=== PATIENT | male | born 1930 | race Caucasian/White ===

== ENCOUNTER → 2016-06-21 | Outpatient (CLI) | payer OTHER ==
[~2016-06-21] MED LIST: AEROBID7 GM INH; AEROSPAN8.9 GM IH; ANCEF 1GM1 GM/50 M1 IVPB; BETAMETHASONE D50 G1 TP; BROVANA15 MCG/2 M INH; CALCIUM 600 +1 EAC1 PO; CEFUROXIME250 MG PO; COMBIVENT INH; COMBIVENT RESPIM4 GM INH; COUMADIN 1MG TAB1 M1 PO; COUMADIN 2.5MG2.5 M1 PO; COUMADIN 5 MG TA5 M1 PO; COZAAR 25 MG TA25 M2 PO; COZAAR100 MG PO; DUONEB 2.5-0.5 M3 ML INH; ENOXAPARIN120 MG/0.1 SUBQ; FENOFIBRATE134 MG PO; FENOFIBRATE160 MG PO; FLONASE 0.05%50 MCG NASAL; FLUNISOLIDE25 M1 NASAL; FML 0.1% 10ML10 M1 OP; FUROSEMIDE 20 M20 M1 PO; HYDROCODON-ACE1 EAC7 PO; HYDROCORTISONE30 G9 RECTAL; K-DUR10 MEQ PO; KLOR-CON 1010 MEQ PO; KLOR-CON 88 ME1 PO; LACTULOSE10 GM/15 M PO; LASIX 20 MG TAB20 MG PO; LASIX 40 MG TAB40 M2 PO; LEVAQUIN 500 M500 M2 PO; LEVEMIR SUBQ; LEVOTHROID150 MCG PO; LEVOTHYROXIN0.175 MG PO; LEVOTHYROXINE PO; LOPRESSOR25 PO; LOPRESSOR50 PO; LOSARTAN POTAS100 MG PO; LOSARTAN POTASS25 MG PO; MAGNESIUM400 MG PO; METOLAZONE 5 MG5 M1 PO; METOLAZONE 5 MG5 MG PO; METOPROLOL SUCC25 M1 PO; MIRALAX17 GM PO; NEURONTIN 300300 M1 PO; NEURONTIN300 MG PO; NOVOLIN N100 UNIT/1 SUBQ; NOVOLIN N100 UNIT/3 SQ; NOVOLOG100 UNIT/1 SUBQ; PREDNISONE 10 M10 MG PO; PREDNISONE 20 M20 MG PO; PREDNISONE 5 MG5 M1 PO; SANTYL OINTMENT30 G1 TP; SYNTHROID150 MCG PO; TAMSULOSIN HCL0.4 M1 PO; TAMSULOSIN HCL0.4 MG PO; TOPROL XL50 MG PO; TRAMADOL 50 MG50 MG PO; VIBRAMYCIN 100100 MG PO; VITAMIN D1000 UNI1 PO; VITAMIN D31000 UNI2 PO
== END ==
LOC: HYPER 06:55
DX: E11.621 Type 2 diabetes mellitus with foot ulcer (principal); L97.521 Non-pressure chronic ulcer of other part of left foot limited to breakdown of skin; I87.303 Chronic venous hypertension (idiopathic) without complications of bilateral lower extremity; E11.40 Type 2 diabetes mellitus with diabetic neuropathy, unspecified; I89.0 Lymphedema, not elsewhere classified; Z79.4 Long term (current) use of insulin; Z87.891 Personal history of nicotine dependence

== ENCOUNTER → 2016-07-12 | Outpatient (CLI) | payer OTHER | LOC: HYPER 06:59 | DX: E11.621 Type 2 diabetes mellitus with foot ulcer (principal); L97.521 Non-pressure chronic ulcer of other part of left foot limited to breakdown of skin; E11.40 Type 2 diabetes mellitus with diabetic neuropathy, unspecified; I89.0 Lymphedema, not elsewhere classified; I87.303 Chronic venous hypertension (idiopathic) without complications of bilateral lower extremity; Z79.4 Long term (current) use of insulin; G47.30 Sleep apnea, unspecified; E11.36 Type 2 diabetes mellitus with diabetic cataract; J44.9 Chronic obstructive pulmonary disease, unspecified; I11.0 Hypertensive heart disease with heart failure; I50.20 Unspecified systolic (congestive) heart failure; M19.90 Unspecified osteoarthritis, unspecified site; E03.9 Hypothyroidism, unspecified; E78.00 Pure hypercholesterolemia, unspecified; I25.10 Atherosclerotic heart disease of native coronary artery without angina pectoris; E11.69 Type 2 diabetes mellitus with other specified complication; M86.8X9 Other osteomyelitis, unspecified sites; Z86.14 Personal history of Methicillin resistant Staphylococcus aureus infection; Z87.891 Personal history of nicotine dependence; Z72.89 Other problems related to lifestyle ==

== ENCOUNTER 2016-09-11 09:50 | Inpatient (IN) | payer OTHER ==
[~2016-09-11] VITALS: Ht 180.3 cm; Wt 115.2 kg
--- NOTE | ~2016-09-11 | HC ---
[facility] [place] [address] CONSULTATION Name: MALOU SPENCER Sophy Room #: 309-P ADM IN M.R.#: [id number] Admission: 09/11/16 Attend Phys: Liz Ramsay MD Discharge: Date of : 29 Report #: [id number] THIS REPORT FOR: //name// CC: Mark Ramsay DATE OF SERVICE: 09/13/2016 REASON FOR CONSULTATION: COPD. IMPRESSION: 1. Chronic obstructive pulmonary disease exacerbation, improved. 2. Congestive heart failure exacerbation. 3. Syncope, question etiology. 4. Chronic venous stasis, worsened. 5. History of obstructive sleep apnea, on CPAP. PLAN: Continue current. We will check a V/Q scan in comparison to prior because of his acute syncopal episodes and unknown etiology. Continue to diurese, wean steroids as able. HISTORY OF PRESENT ILLNESS: Very pleasant 86-year-old male with history of hypertension, COPD and CLARA, comes in now with progressive shortness breath and peripheral edema. No hemoptysis or hematemesis. No new discolored sputum. Had an episode where he felt short of breath and blacked out and fell. ALLERGIES: Per chart, BUDESONIDE, GEMFIBROZIL, DILTIAZEM, FLUTICASONE, FORMOTEROL, SOLU-MEDROL, SIMVASTATIN and TIOTROPIUM. PAST MEDICAL HISTORY: COPD, history of permanent atrial fibrillation, chronic hypoxemic respiratory failure, CLARA, coronary artery disease, gout, diabetes, hypothyroidism, pulmonary hypertension, hypertension and hyperlipidemia. SOCIAL HISTORY: Positive tobacco, quit in 1965. FAMILY HISTORY: Obstructive lung disease. REVIEW OF SYSTEMS: Positive shortness breath, cough, wheeze and syncope. No dysuria. No hemoptysis or hematemesis. No hot or cold intolerance. PHYSICAL EXAMINATION: EYES: Negative icterus. NECK: Negative JVD. LUNGS: Grossly clear. HEART: Irregularly regular. ABDOMEN: Bowel sounds present. [facility] [address] [place] [address] CONSULTATION Name: MALOU SPENCER Room #: 309-P ADM IN [facility]#: [id number] Admission: 09/11/16 Attend Phys: Liz Ramsay MD Discharge: Date of : 29 Report #: [id number] EXTREMITIES: Showed chronic change. Positive edema. NEUROLOGIC: Alert and oriented, recognized me. DIAGNOSTIC DATA: Echo showed a PA systolic of 66, which is higher than last measured. Right atrium and left atrium severely dilated, EF 50% to 55%. Carotid showed minimal to mild. TSH 0.566. White count 20, hemoglobin 12.9 and platelets 335,000. BUN 35, creatinine 1.5. We will follow closely with you. <ELECTRONICALLY SIGNED> By: Tony Gomez MD 09/14/16 1841 2046 0249 Tony Gomez MD /nt
--- NOTE | ~2016-09-11 | EKG ---
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
--- NOTE | ~2016-09-11 | 2DMMODE ---
[facility] [place] [address] 2 D/M-MODE ECHOCARDIOGRAM Name: SPENCERMLAOU Room #: 309-P ADM IN ..#: [id number] Admission: 09/11/16 Attend Phys: Liz Ramsay MD Discharge: Date of : 29 Date of Service: 09/13/16 1258 Report #: [id number] THIS REPORT FOR: //name// APPROVED REPORT Study performed: 09/13/2016 10:45:02 EXAM: Comprehensive 2D, Doppler, and color-flow Echocardiogram Patient Location: Bedside/Room 309 Blood Pressure: 177/94 mmHg HR: 64 bpm Rhythm: irregular Other Information Study Quality: Adequate/Technically limited due to body habitus and lung disease. Indications COPD Diabetes Dyspnea Elevated BP Congestive Heart Failure Hx: CAD, HLP, Afib, CHF, obesity 2D Dimensions RVDd: 40.95 mm LVEF(%): 49.03 (>50%) IVSd: 11.36 (7-11mm) LVOT Diam: 20.31 (18-24mm) LVDd: 50.23 mm PWd: 10.19 (7-11mm) Ascending Aorta: 36.01 mm LVDs: 37.73 (25-40mm) Aortic Root: 42.69 mm Mendez's LVEF: 49.03 % Volumes Left Atrial Volume (Systole) Single Plane 4CH: 99.35 mL Single Plane 2CH: 106.63 mL LA ESV Index: 47.00 mL/m2 Aortic Valve AoV Peak Kimo.: 2.51 m/s AO Peak Gr.: 25.25 mmHg AO Mean Gr.: 15.84 mmHg LV Max P.21 mmHg [facility] [place] [place] [address] 2 D/M-MODE ECHOCARDIOGRAM Name: MALOU SPENCER Room #: 309-P [facility] IN [facility]#: [id number] Admission: 09/11/16 Attend Phys: Liz Ramsay MD Discharge: Date of : 29 Date of Service: 09/13/16 1258 Report #: [id number] AO V2 VTI: 583.85 mm LV Max: 0.89 m/s Mitral Valve MV PHT: 45.36 ms MV E Max Kimo.: 1.26 m/s E/A Ratio: 2.9 MV A Kimo.: 0.44 m/s MV Decel. Time: 156.41 ms Pulmonary Valve PV Peak Kimo.: 0.88 m/s PV Peak Gr.: 3.13 mmHg Tricuspid Valve TR Peak Kimo.: 3.57 m/s RAP Estimate: 15.00 mmHg TR Peak Gr.: 51.19 mmHg RVSP: 66.00 mmHg Left Ventricle The left ventricle is normal size. There is normal left ventricular wall thickness. Left ventricular systolic function is normal. LVEF is 50-55%. Diastology is difficult to assess due to arrhythmia. Right Ventricle Right ventricle is mildly dilated. Right ventricle is mildly hypokinetic. Atria Left atrium is severely dilated. Right atrium is severely dilated. Aortic Valve Aortic valve is moderately calcified. Mild aortic regurgitation. Mild to moderate aortic stenosis. Mitral Valve Mitral valve leaflets are thickened and calcified. Mild mitral annular calcification. Mild mitral regurgitation. Tricuspid Valve The tricuspid valve is normal in structure. There is moderate tricuspid regurgitation. The right atrial pressure is estimated at 15 mmHg. There is moderate pulmonary hypertension with an estimated PAP of 66mmHg. Pulmonic Valve Pulmonic valve is not well visualized. Mild pulmonic regurgitation. 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 The ascending aorta is normal in size. IVC is dilated and collapses <50% with inspiration. Pericardium There is no pericardial effusion. <Conclusion> The left ventricle is normal size. LVEF is 50-55%. Right ventricle is mildly dilated. Left atrium is severely dilated. Right atrium is severely dilated. Aortic valve is moderately calcified. Mild aortic regurgitation. Mild to moderate aortic stenosis. Mitral valve leaflets are thickened and calcified. Mild mitral annular calcification. Mild mitral regurgitation. There is moderate tricuspid regurgitation. The right atrial pressure is estimated at 15 mmHg. There is moderate pulmonary hypertension with an estimated PAP of 66mmHg. Mild pulmonic regurgitation. 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 The ascending aorta is normal in size. <ELECTRONICALLY SIGNED> By: Pee Alonso MD 09/13/16 1258 1258 1258 Pee Alonso MD /INF
[2016-09-11] MEDS ORDERED: DEMADEX20 MG PO (10:36)
[2016-09-11 10:38] LABS: HEMATOCRIT 39.1 % (42.0-52.0); HEMOGLOBIN 12.2 gm/dL (14.0-18.0); MCH 28.2 pg (26.0-34.0); MCHC 31.2 g/dL (28.0-37.0); MCV 90.3 fL (80.0-100.0); PLATELET COUNT 291 thou/uL (150-400); RBC 4.33 mil/uL (4.50-6.00); RDW 18.7 % (10.5-14.5); WBC 11.5 thou/uL (4.0-11.0)
[2016-09-11 10:39] LABS: MANUAL DIFF YES
[2016-09-11 10:49] LABS: ANION GAP 8 mmol/L (7-16); BUN 22 mg/dL (7-18); CALCIUM 9.3 mg/dL (8.5-10.1); CHLORIDE 102 mmol/L (98-107); CO2 28 mmol/L (21-32); CREATININE 1.4 mg/dL (0.6-1.3); GLUCOSE 276 mg/dL (70-99); POTASSIUM 4.1 mmol/L (3.5-5.1); SODIUM 138 mmol/L (136-145)
[2016-09-11 11:02] LABS: NT-PRO BRAIN NAT PEPTIDE 1598 pg/mL (<300); TROPONIN-I < 0.04 ng/mL (<0.04-0.07)
[2016-09-11 11:10] LABS: ABSOLUTE NEUTROPHILS 9.3 thou/uL (1.4-8.2); ANISOCYTOSIS SLIGHT; POIKILOCYTOSIS SLIGHT; TOTAL CELL COUNT 100
[2016-09-11 15:01] LABS: APTT 28.2 Seconds (24.5-32.8); INR 1.1; PROTIME 11.2 Seconds (9.3-11.4)
[2016-09-11 15:11] VITALS: BP 190/86
[2016-09-11 15:50] VITALS: BP 129/97; BP 192/97
[2016-09-11 20:00] VITALS: BP 198/92
[2016-09-12 04:00] VITALS: BP 156/88
[2016-09-12 05:56] LABS: HEMATOCRIT 42.6 % (42.0-52.0); HEMOGLOBIN 13.1 gm/dL (14.0-18.0); MCH 27.7 pg (26.0-34.0); MCHC 30.7 g/dL (28.0-37.0); MCV 90.2 fL (80.0-100.0); RBC 4.72 mil/uL (4.50-6.00); RDW 18.6 % (10.5-14.5); WBC 12.2 thou/uL (4.0-11.0)
[2016-09-12 06:10] LABS: INR 1.1; PROTIME 11.9 Seconds (9.3-11.4)
[2016-09-12 06:24] LABS: ALBUMIN 3.8 g/dL (3.4-5.0); CALCIUM 9.5 mg/dL (8.5-10.1); CREATININE 1.4 mg/dL (0.6-1.3); MAGNESIUM 1.7 mg/dL (1.8-2.4); POTASSIUM 4.4 mmol/L (3.5-5.1); TOTAL BILIRUBIN 0.7 mg/dL (<0.1-1.0); TOTAL PROTEIN 7.5 g/dL (6.4-8.2)
[2016-09-12 07:27] VITALS: BP 218/94
[2016-09-12 09:06] VITALS: BP 149/92
[2016-09-12 12:00] VITALS: BP 129/80
[2016-09-12 16:35] VITALS: BP 149/78
[2016-09-12 20:10] VITALS: BP 134/62
[2016-09-13 05:30] VITALS: BP 130/61
[2016-09-13 05:36] LABS: HEMATOCRIT 41.8 % (42.0-52.0); HEMOGLOBIN 12.9 gm/dL (14.0-18.0); MCHC 30.9 g/dL (28.0-37.0); MCV 90.7 fL (80.0-100.0); RBC 4.61 mil/uL (4.50-6.00); RDW 19.7 % (10.5-14.5); WBC 20.1 thou/uL (4.0-11.0)
[2016-09-13 05:45] LABS: INR 1.2; PROTIME 12.8 Seconds (9.3-11.4)
[2016-09-13 05:53] LABS: CALCIUM 9.8 mg/dL (8.5-10.1); CREATININE 1.5 mg/dL (0.6-1.3); POTASSIUM 3.7 mmol/L (3.5-5.1)
[2016-09-13 07:50] VITALS: BP 177/94
[2016-09-13 12:07] VITALS: BP 178/80
[2016-09-13 14:31] VITALS: BP 145/80
[2016-09-13 17:00] VITALS: BP 146/64
[2016-09-13 19:58] VITALS: BP 137/78
[2016-09-14 00:43] LABS: INR 1.2; PROTIME 12.5 Seconds (9.3-11.4)
[2016-09-14 03:43] VITALS: BP 166/83
[2016-09-14 04:43] LABS: CREATININE 1.5 mg/dL (0.6-1.3); POTASSIUM 3.5 mmol/L (3.5-5.1)
[2016-09-14 08:00] VITALS: BP 149/94
[2016-09-14 11:50] VITALS: BP 139/44
[2016-09-14 15:07] VITALS: BP 139/44
[2016-09-14 16:54] VITALS: BP 121/88
[2016-09-14 19:53] VITALS: BP 130/65
[2016-09-15 01:02] LABS: INR 1.2; PROTIME 12.1 Seconds (9.3-11.4)
[2016-09-15 03:51] VITALS: BP 187/91
[2016-09-15 04:09] LABS: HEMATOCRIT 43.9 % (42.0-52.0); HEMOGLOBIN 13.5 gm/dL (14.0-18.0); MCH 27.9 pg (26.0-34.0); MCHC 30.8 g/dL (28.0-37.0); MCV 90.8 fL (80.0-100.0); RBC 4.83 mil/uL (4.50-6.00); RDW 18.6 % (10.5-14.5); WBC 13.5 thou/uL (4.0-11.0)
[2016-09-15 04:17] LABS: CALCIUM 9.2 mg/dL (8.5-10.1); CREATININE 1.5 mg/dL (0.6-1.3); POTASSIUM 3.4 mmol/L (3.5-5.1)
[2016-09-15] MEDS ORDERED: COZAAR 50 MG TA50 M1 PO (06:45)
[2016-09-15] MEDS ORDERED: NEXIUM40 MG PO (06:45)
[2016-09-15] MEDS ORDERED: TOPROL XL100 MG PO (06:45)
[2016-09-15] MEDS ORDERED: DEMADEX 2020 MG/1 TA PO ×2 (06:46)
[2016-09-15 07:50] VITALS: BP 115/59
[2016-09-15 08:15] VITALS: BP 133/50
[2016-09-15 13:30] VITALS: BP 139/44
== END 2016-09-15 14:20 | disposition home health service (06) | DRG 291 ==
LOC: ER 09:50 → EROBS 14:23 → 3N 14:23
PROVIDERS: Emergency Medicine; Family Medicine; Nurse Practitioner; Nurse Practitioner Gerontology
PROC: 5A09357 Assistance with Respiratory Ventilation, Less than 24 Consecutive Hours, Continuous Positive Airway Pressure (ICD-10-PCS; principal; 2016-09-15)
DX: I13.0 Hypertensive heart and chronic kidney disease with heart failure and stage 1 through stage 4 chronic kidney disease, or unspecified chronic kidney disease (principal); I50.33 Acute on chronic diastolic (congestive) heart failure; N17.9 Acute kidney failure, unspecified; J44.1 Chronic obstructive pulmonary disease with (acute) exacerbation; I25.10 Atherosclerotic heart disease of native coronary artery without angina pectoris; E11.42 Type 2 diabetes mellitus with diabetic polyneuropathy; E11.22 Type 2 diabetes mellitus with diabetic chronic kidney disease; N18.9 Chronic kidney disease, unspecified; G47.33 Obstructive sleep apnea (adult) (pediatric); M19.90 Unspecified osteoarthritis, unspecified site; I87.8 Other specified disorders of veins; I48.2 Chronic atrial fibrillation; M10.9 Gout, unspecified; I27.2 Other secondary pulmonary hypertension; E11.65 Type 2 diabetes mellitus with hyperglycemia; D72.829 Elevated white blood cell count, unspecified; E03.9 Hypothyroidism, unspecified; E78.5 Hyperlipidemia, unspecified; Z79.4 Long term (current) use of insulin; Z88.8 Allergy status to other drugs, medicaments and biological substances; Z87.891 Personal history of nicotine dependence; Z83.6 Family history of other diseases of the respiratory system; Z79.01 Long term (current) use of anticoagulants; Z79.899 Other long term (current) drug therapy; Z99.81 Dependence on supplemental oxygen; Z89.012 Acquired absence of left thumb
CPT/HCPCS: 10096

== ENCOUNTER → 2016-10-16 | Outpatient (CLI) | payer OTHER ==
[~2016-10-16] MED LIST changes: +COZAAR 50 MG TA50 M1 PO; +DEMADEX 2020 MG/1 TA PO; +DEMADEX20 MG PO; +NEXIUM40 MG PO; +TOPROL XL100 MG PO
== END ==
LOC: HYPER 07:10
DX: E11.621 Type 2 diabetes mellitus with foot ulcer (principal); L97.521 Non-pressure chronic ulcer of other part of left foot limited to breakdown of skin; L89.892 Pressure ulcer of other site, stage 2; E11.40 Type 2 diabetes mellitus with diabetic neuropathy, unspecified; I89.0 Lymphedema, not elsewhere classified; I87.303 Chronic venous hypertension (idiopathic) without complications of bilateral lower extremity; Z79.4 Long term (current) use of insulin; G47.30 Sleep apnea, unspecified; J44.9 Chronic obstructive pulmonary disease, unspecified; E11.69 Type 2 diabetes mellitus with other specified complication; M86.8X8 Other osteomyelitis, other site; I11.0 Hypertensive heart disease with heart failure; I50.20 Unspecified systolic (congestive) heart failure; M19.90 Unspecified osteoarthritis, unspecified site; M10.9 Gout, unspecified; E78.00 Pure hypercholesterolemia, unspecified; E03.9 Hypothyroidism, unspecified; I25.10 Atherosclerotic heart disease of native coronary artery without angina pectoris; Z85.51 Personal history of malignant neoplasm of bladder; Z87.891 Personal history of nicotine dependence; Z72.89 Other problems related to lifestyle

== ENCOUNTER → 2016-10-23 | Outpatient (CLI) | payer OTHER | LOC: HYPER 07:06 | DX: E11.621 Type 2 diabetes mellitus with foot ulcer (principal); I87.303 Chronic venous hypertension (idiopathic) without complications of bilateral lower extremity; L97.521 Non-pressure chronic ulcer of other part of left foot limited to breakdown of skin; L89.892 Pressure ulcer of other site, stage 2; E11.40 Type 2 diabetes mellitus with diabetic neuropathy, unspecified; I89.0 Lymphedema, not elsewhere classified; J44.9 Chronic obstructive pulmonary disease, unspecified; I11.0 Hypertensive heart disease with heart failure; I50.9 Heart failure, unspecified; M19.90 Unspecified osteoarthritis, unspecified site; M10.9 Gout, unspecified; R60.9 Edema, unspecified; E78.00 Pure hypercholesterolemia, unspecified; E03.9 Hypothyroidism, unspecified; I25.10 Atherosclerotic heart disease of native coronary artery without angina pectoris; E11.69 Type 2 diabetes mellitus with other specified complication; M86.68 Other chronic osteomyelitis, other site; Z86.14 Personal history of Methicillin resistant Staphylococcus aureus infection; Z79.4 Long term (current) use of insulin; Z85.828 Personal history of other malignant neoplasm of skin; Z87.891 Personal history of nicotine dependence; Z72.89 Other problems related to lifestyle ==

== ENCOUNTER → 2016-10-30 | Outpatient (CLI) | payer OTHER | LOC: HYPER 06:53 | DX: E11.621 Type 2 diabetes mellitus with foot ulcer (principal); L97.521 Non-pressure chronic ulcer of other part of left foot limited to breakdown of skin; L89.894 Pressure ulcer of other site, stage 4; L89.892 Pressure ulcer of other site, stage 2; E11.40 Type 2 diabetes mellitus with diabetic neuropathy, unspecified; I89.0 Lymphedema, not elsewhere classified; I87.303 Chronic venous hypertension (idiopathic) without complications of bilateral lower extremity; E11.69 Type 2 diabetes mellitus with other specified complication; M86.372 Chronic multifocal osteomyelitis, left ankle and foot; G47.30 Sleep apnea, unspecified; E11.36 Type 2 diabetes mellitus with diabetic cataract; J44.9 Chronic obstructive pulmonary disease, unspecified; I49.9 Cardiac arrhythmia, unspecified; M19.90 Unspecified osteoarthritis, unspecified site; M10.9 Gout, unspecified; E78.00 Pure hypercholesterolemia, unspecified; I11.0 Hypertensive heart disease with heart failure; I50.9 Heart failure, unspecified; E03.9 Hypothyroidism, unspecified; I25.10 Atherosclerotic heart disease of native coronary artery without angina pectoris; Z86.14 Personal history of Methicillin resistant Staphylococcus aureus infection; Z85.51 Personal history of malignant neoplasm of bladder; Z87.891 Personal history of nicotine dependence; Z72.89 Other problems related to lifestyle; Z79.4 Long term (current) use of insulin ==

== ENCOUNTER 2016-11-06 08:06 | Inpatient (IN) | payer OTHER ==
[~2016-11-06] VITALS: Ht 177.8 cm; Wt 115.3 kg
--- NOTE | ~2016-11-06 | HC ---
[facility] [place] [address] [place] [address] CONSULTATION Name: SPENCERMALOU Room #: 429-P [facility] IN M.R.#: [id number] Admission: 11/06/16 Attend Phys: Edgar Whyte MD Discharge: 11/12/16 Date of : 29 Report #: [id number] THIS REPORT FOR: //name// CC: Edgar Montes De Oca DATE OF SERVICE: 11/07/2016 CHIEF COMPLAINT: Left diabetic foot cellulitis and second toe wound. HISTORY OF PRESENT ILLNESS: The patient is a pleasant 86-year-old gentleman who was a direct admit to [facility] yesterday from wound care for concerns of a gangrenous left second toe. The patient is a diabetic who has been seeing the wound care clinic for an extended period of time. The patient reports that he has only had the wound on the toe for a couple of weeks now. The patient denies any fevers, chills, nausea or vomiting. ALLERGIES: DILTIAZEM, SYMBICORT, GEMFIBROZIL, CARDIZEM, ADVAIR, SIMVASTATIN, PRECOSE, BEXTRA, ACTOS and SPIRIVA. MEDICATIONS: Please see medical record, includes vancomycin and Zosyn. PAST MEDICAL HISTORY: CAD, AFib, COPD, CHF, degenerative arthritis, obstructive sleep apnea, hypothyroidism, hypertension, hyperlipidemia and diabetes. PAST SURGICAL HISTORY: Bilateral inguinal herniorrhaphy. SOCIAL HISTORY: The patient is a past smoker. No significant alcohol intake. PHYSICAL EXAMINATION: VITAL SIGNS: Temperature 34.9, pulse 93 and blood pressure 151/64. GENERAL: The patient is a well-developed and well-nourished male in no acute distress. EXTREMITIES: Left lower extremity: Pitting edema present in the lower leg and foot, erythema noted about the left second toe extending into the foot and mild erythema noted in the lower leg consistent with stasis dermatitis. Left second toe has significant erythema and edema present with large ulceration at the distal aspect of the toe with some purulent drainage present. Pulses are diminished in the bilateral lower extremities. Sensation is diminished in the foot. LABORATORY DATA: White cell count is elevated at 13.3 with 76% neutrophils. Hemoglobin is 14.9, glucose is elevated at 139 today. Yesterday blood glucose levels were 229, [address] [address] CONSULTATION Name: TJMALOU Room #: 429-P [facility] IN .R.#: [id number] Admission: 11/06/16 Attend Phys: Edgar Whyte MD Discharge: 11/12/16 Date of : 29 Report #: [id number] IMAGING: MRI of the left foot performed on 11/06/2016 shows osteomyelitis of the second distal phalanx. There is no involvement of the middle phalanx or DIP joint. 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 PLAN: We discussed the patient's diagnosis and treatment options today. He has been started on broad-spectrum antibiotics. However, with the osteomyelitis and gangrenous changes of the second toe, we did discuss the possibility of a ray amputation today. We discussed potential complications including future amputations if he had issues with wound healing. We also discussed the need to continue to follow up with wound care postoperatively. We also discussed the importance of good control of his blood sugars for wound healing and future care of the foot. The patient would like to proceed with a ray amputation, and we will work on getting this scheduled. <ELECTRONICALLY SIGNED> By: RACHEAL Munson 11/13/16 1620 0730 0950 RACHEAL Munson /nt
--- NOTE | ~2016-11-06 | O ---
[facility] [place] [address] [place] [address] OPERATIVE REPORT Name: MALOU SPENCER Room #: 429-P ADM IN M.R.#: [id number] Admission: 11/06/16 Attend Phys: Edgar Whyte MD Discharge: Date of : 29 Report #: [id number] THIS REPORT FOR: //name// CC: Edgar Charles Mark Falguni DATE OF SERVICE: 11/09/2016 DATE OF SURGERY: 11/09/2016. PREOPERATIVE DIAGNOSIS: Left second toe osteomyelitis. POSTOPERATIVE DIAGNOSIS: Left second toe osteomyelitis. PROCEDURE: Left second toe amputation at the MTP joint. SURGEON: Jeremy Lockett MD. SENIOR IT ASSISTANT: Alvina Palmer PA-C. ANESTHESIA: General. SPECIMENS: Left second toe was sent to pathology. ESTIMATED BLOOD LOSS: 5 mL. COMPLICATIONS: None. CONDITION UPON LEAVING THE OPERATING ROOM: Stable. INDICATIONS FOR PROCEDURE: The patient is an 86-year-old gentleman who has diabetes and has had ulceration over his left second toe. He had an MRI scan showing him to have osteomyelitis of the distal phalanx, and after discussion with him, he elected for left second toe amputation. DESCRIPTION OF PROCEDURE: Risks, benefits, alternatives, complications were discussed in detail with the patient including but not limited to risk of anesthesia; risk of damage to nerves, arteries, blood vessels; risk for continued infection and need for further amputation level. Informed consent was obtained from the patient. Left foot was appropriately marked in the preoperative holding area. He was brought to the operating room and placed in supine position on operating room table. LMA anesthesia was induced without complication. Left foot was then prepped and draped in normal sterile fashion. Timeout was performed properly identifying the patient and procedure as well as the instrumentation. All in the operating room were in agreement. [facility] [address] [place] [address] OPERATIVE REPORT Name: MALOU SPENCER Room #: 429-P [facility] IN ..#: [id number] Admission: 11/06/16 Attend Phys: Edgar Whyte MD Discharge: Date of : 29 Report #: [id number] incision was then marked on the skin at the base of the second toe, and incision was made with a 15 blade through the skin down and to the bone circumferentially. Monzon elevator was then used to elevate the soft tissues off the bone down to the MTP joint, and the toe was amputated at the level of the MTP joint with a 10 blade. Wound was thoroughly irrigated with normal saline. A local injection of 0.5% Marcaine without epinephrine 7 mL was placed around the incision. Incision was closed with 3-0 nylon. Soft dressing of Adaptic, 4 x 4, Webril, Mitchel wrap and postop shoe were applied. The patient tolerated this procedure well and went to the recovery room under the care of anesthesia postoperatively. By: 0901 09 Jeremy Lockett MD /jacquie
--- NOTE | ~2016-11-06 | HC ---
[facility] [place] [address] [place] [address] CONSULTATION Name: TJMALOU Sophy Room #: 429-P ADM IN M.R.#: [id number] Admission: 11/06/16 Attend Phys: Edgar Whyte MD Discharge: Date of : 29 Report #: [id number] THIS REPORT FOR: //name// CC: Edgar Montes De Oca DATE OF SERVICE: 11/06/2016 REASON FOR CONSULTATION: I was asked to evaluate the patient's concerning left toe gangrene. HISTORY OF PRESENT ILLNESS: The patient was an 86-year-old with underlying history of diabetes, congestive heart failure, atrial fibrillation, peripheral vascular disease and peripheral neuropathy. He has been dealing with ulcerations to his left foot for quite some time. Most recently, he has been dealing with a left second toe distal ulcer. Last week, it was cultured and grew MRSA and Enterococcus. He was placed on Bactrim. He did not improve and on followup evaluation today, notes gangrene changes to the second toe with erythema extending up his foot. No fever, chills or sweats. Blood glucose levels have been running above 200. The patient was without fever, chills or sweats. He has had minimal amount of pain. ALLERGIES: MULTIPLE INCLUDING SYMBICORT, GEMFIBROZIL, CARDIZEM, ADVAIR, SIMVASTATIN, PRECOSE, BEXTRA, ACTOS, SPIRIVA. MEDICATIONS: As noted on his AUG, now including vancomycin and Zosyn. PAST MEDICAL HISTORY: Coronary artery disease, atrial fibrillation, COPD, congestive heart failure, degenerative arthritis, obstructive sleep apnea, COPD on 2 L of oxygen, hypothyroidism, hypertension, hyperlipidemia, diabetes, bilateral inguinal herniorrhaphy. FAMILY HISTORY: Noncontributory. SOCIAL HISTORY: He is a past smoker. No significant alcohol intake. REVIEW OF SYSTEMS: No cough or sputum production. No nausea, vomiting or diarrhea. No dysuria or frequency. PHYSICAL EXAMINATION: VITAL SIGNS: He is afebrile, hemodynamically stable. GENERAL: He is alert and cooperative and pleasant, in no acute distress. He just get out of his MRI scan. HEENT: Unremarkable. CHEST: Decreased breath sounds bilaterally. [facility] [address] [place] [address] CONSULTATION Name: MALOU SPENCER Room #: 429-P [facility] IN [facility].#: [id number] Admission: 11/06/16 Attend Phys: Edgar Whyte MD Discharge: Date of : 29 Report #: [id number] HEART: Regular, without murmur. ABDOMEN: Soft, nontender, moderately obese. No hepatosplenomegaly or mass. EXTREMITIES: His lower extremities have decreased pulses in both feet. He had 1+ edema in the left lower extremity. He had some venous stasis dermatitis changes with a small ulcer to his left pretibial skin. He had a pin point eschar over the plantar aspect of his left first metatarsal head. The left second toe had sausage deformity with an ulceration of the distal aspect of his toe with some purulent drainage evident. The erythema extended throughout the toe and up into his forefoot. Sensation was diminished. LABORATORY STUDIES: Sodium 139, potassium 3.9, bicarbonate of 33, creatinine 1.9. Blood glucose 261. Liver function test normal. Hemoglobin 14.9; white count 13.3; platelet count 313,000. IMPRESSION: An 86-year-old with peripheral vascular disease, peripheral neuropathy, diabetes and gangrene of his left second toe. I am awaiting a read of his MRI scan, but I suspect he has underlying distal osteomyelitis, likely of the of the distal phalanx. I do not think the toe is going to be salvageable given the extent of the inflammatory changes in gangrene looked to the tissues. Would recommend continuing broad antibiotic coverage and surgical evaluation. We will go with vancomycin and Zosyn, adjusted for his renal failure. The duration of his antibiotics will be dependent upon surgical findings. <ELECTRONICALLY SIGNED> By: Willam Jarquin MD 11/07/16 1135 1750 0451 Willam Jarquin MD /nt
--- NOTE | ~2016-11-06 | S ---
[facility] [place] [address] [place] [address] SURGICAL PATH RPT PROCEDURE Name: MALOU VAZQUEZ Room #: 429-P DIS IN M.R.#: [id number] Admission: 11/06/16 Date of : 29 Discharge: 11/12/16 Report #: [id number] Path Case #: [id number] PATHOLOGY REPORT COLLECTION DATE: 11/09/2016 RECEIVED DATE: 11/09/2016 SUBMITTING PHYS: Dr. Jeremy Lockett OTHER PHYS: Dr. Elan Whyte MD SPECIMEN(S) RECEIVED: A.Left second toe * * * * * * * * * * * * FINAL DIAGNOSIS: "Left second toe", amputation: - Skin and subcutaneous tissue with acute and chronic inflammation, necrosis, granulation tissue and pseudoepitheliomatous hyperplasia. - Decalcified bone with acute osteomyelitis. (CLW:lopez; d/t: 11/13/2016) PATHOLOGIST: Genet Oconnor M.D. REPORT ELECTRONICALLY SIGNED BY: Genet Oconnor M.D. DATE/TIME: 11/13/2016 20:04 * * * * * * * * * * * * GROSS PATHOLOGY: The specimen is received in formalin labeled "Malou Vazquez, left second toe". Received is an amputated digit measuring 6.1 x 2.2 x 2.2 cm in greatest dimensions. The margin is smooth and concave in appearance, consistent with disarticulation. The bone and soft tissue margins are inked black. The nail is present displaying white-mathews and thickened appearance. At the distal aspect of the specimen, there is a well-circumscribed, focally ulcerated and light mathews to mathews-brown lesion measuring 2.0 x 1.8 cm, which is 2.2 cm from the closest skin margin. The remainder of the epidermal surface is pale mathews and flaky in appearance. A full-thickness longitudinal cross-section is submitted from proximal to distal aspects in cassettes A1 through A3, following decalcification. (CAA; 11/11/2016) CLINICAL HISTORY: Osteomyelitis left second toe [address] [place] [address] SURGICAL PATH RPT PROCEDURE Name: MALOU VAZQUEZ Room #: 429-P DIS IN M.R.#: [id number] Admission: 11/06/16 Date of : 29 Discharge: 11/12/16 Report #: [id number] Path Case #: [id number] INITIAL CPT CODE(S): A; 06237, 85409 Professional services performed by [facility] at [facility] [address] [place] [address] Technical services performed by [facility] at [address] [place] [address], [facility] [address] [address]. [facility] [address] [place] [address] PHONE: [phone] DIRECTOR: Malik Michaels M.D. * * * END OF REPORT * * *
--- NOTE | ~2016-11-06 | H ---
[facility] [place] [address] HISTORY AND PHYSICAL Name: MALOU SPENCER Room #: 429-P ADM IN M.R.#: [id number] Admission: 11/06/16 Attend Phys: Edgar Whyte MD Discharge: Date of : 29 Report #: [id number] THIS REPORT FOR: //name// CC: Edgar Montes De Oca DATE OF SERVICE: 11/06/2016 REASON FOR ADMISSION: Diabetic foot cellulitis. HISTORY OF PRESENT ILLNESS: The patient is an 86-year-old gentleman referred directly to the hospital as a direct admit from the wound care center today with concerns for gangrenous left foot second toe. The patient has known problems with the diabetic foot and has been seeing the wound care clinic for a substantial amount of time. When seen in the clinic today, he appeared to have worsening cellulitis of his left king with a draining area as well as left second toe appearing to have wet gangrene with concerns for needing amputation. He has been sent to the hospital for treatment and evaluation of the same. Besides this, he really has no significant complaints today. He had some mild dyspnea and questionable chest pain yesterday; however, has no present symptoms at the moment. He denies nausea, vomiting, diarrhea, dizziness, headache, skin rashes or other problems at this time. PAST MEDICAL HISTORY: Includes, 1. Diastolic CHF. 2. Chronic obstructive pulmonary disease. 3. Mild aortic stenosis. 4. Hypothyroid. 5. Hyperlipidemia. 6. Diabetes. 7. Atrial fibrillation, on chronic anticoagulation. 8. Arthritis. PAST SURGICAL HISTORY: Includes, 1. Bilateral inguinal hernia repairs. 2. Left finger surgery. SOCIAL HISTORY: Past smoker, but has quit greater than 1 year. Occasional social alcohol use, no drug use. FAMILY HISTORY: Reviewed with the patient. REVIEW OF SYSTEMS: Twelve-point review of systems performed, negative except as mentioned in history of present illness. Medication rec pending at this time. [address] [address] HISTORY AND PHYSICAL Name: MALOU SPENCER Room #: 429-P ADM IN .R.#: [id number] Admission: 11/06/16 Attend Phys: Edgar Whyte MD Discharge: Date of : 29 Report #: [id number] ALLERGIES: Reported to , DILTIAZEM. PHYSICAL EXAMINATION: VITAL SIGNS: Afebrile, pulse of 55, respiratory 20, O2 sat 95 on 2 liters, blood pressure 123/45. GENERAL: Elderly gentleman in no acute distress. HEENT: Unremarkable. NECK: No JVD or thyromegaly. CARDIOVASCULAR: S1, S2 present. RESPIRATORY: Air entry present bilaterally. ABDOMEN: Obese, soft, nontender. EXTREMITIES: Left lower extremity with cellulitis and erythema of left leg up to mid king region with single area of drainage with some purulence. Left second toe macerated puffy with concerns for wet gangrene, but no obvious blackish discoloration, does appear to have ulceration at the tip. NEUROLOGIC: Awake, alert, no obvious focal findings. SKIN: Otherwise, dry. LABORATORY AND INVESTIGATIONS: Pending. Glucose elevated. ASSESSMENT AND PLAN: This is an 86-year-old gentleman admitted as a direct admission for presumed left foot cellulitis and gangrene. IMPRESSION: 1. Left foot diabetic cellulitis and gangrene. He will be started on broad-spectrum antibiotics with vancomycin and Zosyn. We will involve Infectious Disease and Orthopedic Surgery to assess for further debridement and other interventions as may be necessary. 2. Diastolic congestive heart failure, appears compensated. 3. Chronic obstructive pulmonary disease, appears compensated. 4. Deep venous thrombosis prophylaxis not started besides SCDs at the present time as he is supposed to be on anticoagulation for AFib. INR is pending at this time. 5. Chronic atrial fibrillation, on chronic anticoagulation. <ELECTRONICALLY SIGNED> By: Edgar Whyte MD 11/07/16 1337 1449 28 Edgar Whyte MD /nt
[2016-11-06 12:45] VITALS: BP 123/45
[2016-11-06] MEDS ORDERED: LOPRESSOR50 PO (14:55)
[2016-11-06] MEDS ORDERED: COUMADIN 5 MG TA5 M1 PO (15:00)
[2016-11-06] MEDS ORDERED: COUMADIN 2.5MG2.5 M1 PO (15:01)
[2016-11-06] MEDS ORDERED: VITAMINC500 PO (15:02)
[2016-11-06] MEDS ORDERED: MAGNESIUM OXID400 MG PO (15:02)
[2016-11-06] MEDS ORDERED: IRON325 PO (15:03)
[2016-11-06] MEDS ORDERED: CENTRUM SILVER1 EAC4 PO (15:03)
[2016-11-06] MEDS ORDERED: ARICEPT 5 MG TAB5 MG PO (15:04)
[2016-11-06] MEDS ORDERED: ALEVE220 MG PO (15:06)
[2016-11-06] MEDS ORDERED: VICODIN 5-3001 EACH PO (15:07)
[2016-11-06] MEDS ORDERED: OXYGEN (15:07)
[2016-11-06 15:38] VITALS: BP 120/58
[2016-11-06 17:13] LABS: ABSOLUTE NEUTROPHILS 10.2 thou/uL (1.4-8.2); BASOPHILS 0.7 % (0.0-2.0); HEMATOCRIT 46.4 % (42.0-52.0); HEMOGLOBIN 14.9 gm/dL (14.0-18.0); LYMPHOCYTES 13.3 % (24.0-44.0); MCH 28.4 pg (26.0-34.0); MCHC 32.1 g/dL (28.0-37.0); MCV 88.6 fL (80.0-100.0); MONOCYTES 8.3 % (1.0-8.0); PLATELET COUNT 316 thou/uL (150-400); POLYS 76.7 % (36.0-66.0); RBC 5.25 mil/uL (4.50-6.00); RDW 17.6 % (10.5-14.5); WBC 13.3 thou/uL (4.0-11.0)
[2016-11-06 17:15] LABS: MANUAL DIFF NO
[2016-11-06 17:26] LABS: ALBUMIN 3.6 g/dL (3.4-5.0); CALCIUM 9.9 mg/dL (8.5-10.1); CREATININE 1.9 mg/dL (0.7-1.3); POTASSIUM 3.9 mmol/L (3.5-5.1); TOTAL BILIRUBIN 0.6 mg/dL (<0.1-1.0); TOTAL PROTEIN 8.5 g/dL (6.4-8.2)
[2016-11-06 17:32] LABS: INR 1.7; PROTIME 18.1 Seconds (9.3-11.4)
[2016-11-06 19:52] VITALS: BP 135/61
[2016-11-07 05:03] VITALS: BP 151/64
[2016-11-07 05:59] LABS: HEMATOCRIT 46.6 % (42.0-52.0); HEMOGLOBIN 14.9 gm/dL (14.0-18.0); MCH 28.2 pg (26.0-34.0); MCHC 31.9 g/dL (28.0-37.0); MCV 88.5 fL (80.0-100.0); RBC 5.27 mil/uL (4.50-6.00); RDW 17.3 % (10.5-14.5); WBC 11.4 thou/uL (4.0-11.0)
[2016-11-07 06:17] LABS: CREATININE 1.8 mg/dL (0.7-1.3); POTASSIUM 3.8 mmol/L (3.5-5.1)
[2016-11-07 21:30] VITALS: BP 162/74
[2016-11-08 04:30] VITALS: BP 157/93
[2016-11-08 06:17] LABS: HEMATOCRIT 44.3 % (42.0-52.0); HEMOGLOBIN 13.9 gm/dL (14.0-18.0); MCH 28.1 pg (26.0-34.0); MCHC 31.5 g/dL (28.0-37.0); MCV 89.5 fL (80.0-100.0); RBC 4.95 mil/uL (4.50-6.00); RDW 17.6 % (10.5-14.5); WBC 11.4 thou/uL (4.0-11.0)
[2016-11-08 06:25] LABS: INR 1.6
[2016-11-08 06:29] LABS: CALCIUM 9.5 mg/dL (8.5-10.1); CREATININE 1.6 mg/dL (0.7-1.3); POTASSIUM 3.8 mmol/L (3.5-5.1)
[2016-11-08 07:12] VITALS: BP 154/87
[2016-11-08 15:55] VITALS: BP 133/76
[2016-11-08 20:00] VITALS: BP 145/55; BP 145/79
[2016-11-09 03:11] VITALS: BP 131/75
[2016-11-09 05:53] LABS: HEMATOCRIT 44.8 % (42.0-52.0); HEMOGLOBIN 14.2 gm/dL (14.0-18.0); MCH 28.3 pg (26.0-34.0); MCHC 31.6 g/dL (28.0-37.0); MCV 89.4 fL (80.0-100.0); RDW 17.5 % (10.5-14.5); WBC 10.2 thou/uL (4.0-11.0)
[2016-11-09 06:04] LABS: CALCIUM 9.4 mg/dL (8.5-10.1); CREATININE 1.6 mg/dL (0.7-1.3); POTASSIUM 3.6 mmol/L (3.5-5.1)
[2016-11-09 08:58] VITALS: BP 147/67
[2016-11-09 10:33] VITALS: BP 143/73
[2016-11-09 16:56] VITALS: BP 149/72
[2016-11-09 19:39] VITALS: BP 148/71
[2016-11-10 05:52] VITALS: BP 159/74
[2016-11-10 07:43] VITALS: BP 144/78
[2016-11-10 08:08] LABS: HEMATOCRIT 44.6 % (42.0-52.0); MCH 28.1 pg (26.0-34.0); MCHC 31.5 g/dL (28.0-37.0); MCV 89.2 fL (80.0-100.0); RDW 17.5 % (10.5-14.5); WBC 10.6 thou/uL (4.0-11.0)
[2016-11-10 08:16] LABS: CALCIUM 9.5 mg/dL (8.5-10.1); CREATININE 1.4 mg/dL (0.7-1.3); POTASSIUM 3.9 mmol/L (3.5-5.1)
[2016-11-10 15:54] VITALS: BP 131/60
[2016-11-10 20:00] VITALS: BP 137/66
[2016-11-11 05:30] VITALS: BP 167/89
[2016-11-11 05:56] LABS: HEMATOCRIT 42.4 % (42.0-52.0); HEMOGLOBIN 13.4 gm/dL (14.0-18.0); MCH 28.3 pg (26.0-34.0); MCHC 31.5 g/dL (28.0-37.0); MCV 89.9 fL (80.0-100.0); RBC 4.72 mil/uL (4.50-6.00); RDW 17.3 % (10.5-14.5); WBC 10.3 thou/uL (4.0-11.0)
[2016-11-11 06:17] LABS: ALBUMIN 2.9 g/dL (3.4-5.0); CALCIUM 9.4 mg/dL (8.5-10.1); CREATININE 1.4 mg/dL (0.7-1.3); POTASSIUM 3.6 mmol/L (3.5-5.1)
[2016-11-11 08:02] VITALS: BP 166/81
[2016-11-11 15:38] VITALS: BP 151/75
[2016-11-11 20:00] VITALS: BP 154/79
[2016-11-12 04:30] VITALS: BP 160/76
[2016-11-12 05:53] LABS: INR 1.1; PROTIME 10.9 Seconds (9.3-11.4)
[2016-11-12 07:15] VITALS: BP 145/86
[2016-11-12] MEDS ORDERED: ENOXAPARIN120 MG/0.1 SUBQ ×2 (09:38→09:41)
[2016-11-12] MEDS ORDERED: DOXYCYCLINE 10100 MG PO (12:07)
[2016-11-12 16:53] VITALS: BP 145/86
== END 2016-11-12 19:00 | disposition home health service (06) | DRG 853 ==
LOC: HYPER 08:06 → 4E 12:25 → HYPER 13:01 → 4E 11-12 19:00
PROVIDERS: Hospitalist
PROC: 0Y6S0Z0 Detachment at Left 2nd Toe, Complete, Open Approach (ICD-10-PCS; principal; 2016-11-09)
DX: A41.9 Sepsis, unspecified organism (principal); N17.0 Acute kidney failure with tubular necrosis; E11.52 Type 2 diabetes mellitus with diabetic peripheral angiopathy with gangrene; M86.8X7 Other osteomyelitis, ankle and foot; I13.0 Hypertensive heart and chronic kidney disease with heart failure and stage 1 through stage 4 chronic kidney disease, or unspecified chronic kidney disease; L03.116 Cellulitis of left lower limb; E11.42 Type 2 diabetes mellitus with diabetic polyneuropathy; M19.90 Unspecified osteoarthritis, unspecified site; I25.10 Atherosclerotic heart disease of native coronary artery without angina pectoris; E11.22 Type 2 diabetes mellitus with diabetic chronic kidney disease; N18.9 Chronic kidney disease, unspecified; I50.9 Heart failure, unspecified; G47.33 Obstructive sleep apnea (adult) (pediatric); J44.9 Chronic obstructive pulmonary disease, unspecified; E03.9 Hypothyroidism, unspecified; E78.5 Hyperlipidemia, unspecified; E11.69 Type 2 diabetes mellitus with other specified complication; I35.0 Nonrheumatic aortic (valve) stenosis; E11.628 Type 2 diabetes mellitus with other skin complications; I48.2 Chronic atrial fibrillation; E11.621 Type 2 diabetes mellitus with foot ulcer; A49.02 Methicillin resistant Staphylococcus aureus infection, unspecified site; Z79.899 Other long term (current) drug therapy; Z87.891 Personal history of nicotine dependence; Z79.01 Long term (current) use of anticoagulants; Z89.012 Acquired absence of left thumb
CPT/HCPCS: 10783; 50010; 50101; 50386; 56525; 57091; 62110; 62900; 70005

== ENCOUNTER 2016-11-16 16:33 | Inpatient (IN) | payer OTHER ==
[~2016-11-16] VITALS: Ht 177.8 cm; Wt 124.7 kg
--- NOTE | ~2016-11-16 | HC ---
[facility] [place] [address] CONSULTATION Name: SPENCERMALOU Room #: 302-P [facility] IN ..#: [id number] Admission: 11/16/16 Attend Phys: Hemalatha Reaves MD Discharge: 11/21/16 Date of : 29 Report #: [id number] THIS REPORT FOR: //name// CC: Mark Linares DATE OF SERVICE: 11/19/2016 CHIEF COMPLAINT: Surgical wound to the left foot and left pretibial ulceration. HISTORY OF PRESENT ILLNESS: This is an 86-year-old male patient who has been readmitted and has been followed by wound care in the past. We have seen him previously for his ulcerations. He notes no significant pain, is sitting upright in a chair. PAST MEDICAL HISTORY: Prior history of left lower extremity cellulitis and history of sepsis with recent history of MRSA in the wound culture. Arterial Dopplers have shown no significant stenosis. He has history of COPD, history of atrial fibrillation, diabetes mellitus, hypothyroidism. SOCIAL HISTORY: Noncontributory. REVIEW OF SYSTEMS: CONSTITUTIONAL: No fever, chills. PULMONARY: The patient complains of minimal shortness of breath. GASTROINTESTINAL: He has had nausea and vomiting. ORTHOPEDIC: The patient does note ulceration and some swelling of his left lower extremity. Denies pain at this area. Other systems are negative. PHYSICAL EXAMINATION: VITAL SIGNS: Include respiratory rate of 22, pulse 68, blood pressure 153/88, temperature 98.1. GENERAL: This is a somewhat chronically ill-appearing male patient, appears to be distress. HEENT: Normocephalic. LUNGS: Diminished. ABDOMEN: Somewhat distended, nontender. LOWER EXTREMITIES: Demonstrate diminished peripheral pulses. He has a 2-3+ edema, particularly at the left lower extremity. He is noted to have a small pretibial ulceration that is relatively clear with some serous drainage. He also has a left great toe amputation site, the sutures remain in place. The wound edges are still well opposed. There is a little bit of maceration noted, although it is not overtly infected. There is extensive venous type dermatitis to the left lower extremity. [facility] [address] [place] [address] CONSULTATION Name: MALOU SPENCER Sophy Room #: 302-P [facility] IN [facility]#: [id number] Admission: 11/16/16 Attend Phys: Hemalatha Reaves MD Discharge: 11/21/16 Date of : 29 Report #: [id number] LABORATORY DATA: Include sodium 142, potassium 4.3, chloride 106, CO2 25, BUN 41, creatinine 2.1, glucose 152, calcium is 9.1, phosphorus 3.7, magnesium 2.0, alkaline phosphatase 101, SGPT is 46, total protein 8.2, albumin 2.8. INR is 1.2. White blood cell count 10.6 with hemoglobin 12.8, hematocrit of 41.1, platelet count 153,000. CLINICAL IMPRESSION: 1. Ulceration to left lower extremity, probably mixed arterial and venous in origin. 2. Venous stasis dermatitis, left lower extremity. 3. Left second toe amputation, surgical wound remaining well opposed. 4. Diabetes mellitus. 5. Peripheral arterial disease. RECOMMENDATION: At this point in time, we will discontinue the Bactroban ointment as there does appear to be some maceration to the left second toe site. We will recommend a silver alginate to the pretibial and amputation site to be changed daily, covered with gauze and/or ABD, mild compression, elevation when possible. I appreciate being asked to see the patient in consultation. <ELECTRONICALLY SIGNED> By: Thierry Bloom MD 11/21/16 1756 1141 2111 Thierry Bloom MD /nt
--- NOTE | ~2016-11-16 | EKG ---
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1930 Requested By: Shannan Ellis Order Number: [id number] MD: Yousif Najera Measurements Intervals [place] Rate: 116 P: DE: QRS: 170 QRSD: 106 T: 29 QT: 385 QTc: 535 Interpretive Statements Atrial fibrillation Left posterior fascicular block Anterolateral infarct, old Compared to ECG 09/11/2016 10:22:14 Premature ventricular complexes are now present Electronically Signed On 11-17-2016 16:44:35 CDT by Yousif Najera [email or web address] <ELECTRONICALLY SIGNED> By: Yousif Najera MD, [facility] 11/17/16 1644 16 16 Yousif Najera MD, [facility] /EPI
--- NOTE | ~2016-11-16 | HC ---
[facility] [place] [address] CONSULTATION Name: SPENCERMALOU Room #: 302-P [facility] IN M.R.#: [id number] Admission: 11/16/16 Attend Phys: Hemalatha Reaves MD Discharge: 11/21/16 Date of : 29 Report #: [id number] THIS REPORT FOR: //name// CC: Mark Preciadohens DATE OF SERVICE: 11/18/2016 PULMONARY CONSULTATION REFERRING PROVIDER: Ilia Villanueva M.D. REASON FOR CONSULTATION: Hypoxemia. CHIEF COMPLAINT: Cellulitis. HISTORY OF PRESENT ILLNESS: Our group was asked to assist in management of the patient, well known to me from a pulmonary visit. He has a long-standing history of COPD and chronic hypoxemic respiratory failure, on supplemental oxygen off and on, typically with sleep and as needed with activity. Recently, he has been hospitalized and having difficulty with left toe osteoarthritis, status post amputation on the second left toe on November 08. He had been on antibiotics, but appears to be having increased difficulty with cellulitis. The patient was admitted for further management. He was also noted to have some shortness of air. He denies any active cough, congestion, fevers, chills or sweats at this time. He is on his typical 2 liters nasal cannula at times, although he is off this morning. He has had intermittent need for systemic steroids, but has not had some in the last month or so. Currently, he is on nebulized treatments at this time to help control his symptoms. ALLERGIES: Include a variety of LONG-ACTING BETA AGONISTS Including SYMBICORT, SPIRIVA, SEREVENT, FORMOTEROL, FLONASE, DILTIAZEM, GEMFIBROZIL, PIOGLITAZONE, BEXTRA and ACARBOSE. PAST MEDICAL HISTORY: 1. COPD. 2. Chronic hypoxemic respiratory failure. 3. History of chronic atrial fibrillation. 4. Obstructive sleep apnea, on nocturnal CPAP, very complaint with therapy. Does require supplemental oxygen in line with the CPAP. 5. Coronary artery disease. 6. Gout. 7. Diabetes mellitus type 2. 8. Chronic venous insufficiency. [facility] [address] [place] [address] CONSULTATION Name: MALOU SPENCER Room #: 302-P [facility] IN ..#: [id number] Admission: 11/16/16 Attend Phys: Hemalatha Reaves MD Discharge: 11/21/16 Date of : 29 Report #: [id number] 9. Hypothyroidism. 10. Hypertension. 11. History of pulmonary hypertension. 12. Hyperlipidemia. SOCIAL HISTORY: The patient is an ex-smoker, quitting over 30 years ago. No significant alcohol consumption. FAMILY HISTORY: Significant for underlying obstructive lung disease. Father at 99. REVIEW OF SYSTEMS: CONSTITUTIONAL: No fevers, chills or sweats. ENT: No upper respiratory congestion, rhinorrhea or dysphagia. CARDIOVASCULAR: History of chronic atrial fibrillation. No chest pain or palpitations. GASTROINTESTINAL: No nausea, vomiting, diarrhea, constipation or abdominal pain. Appetite is good. GENITOURINARY: No dysuria, no frequency. INTEGUMENT: As described in the HPI with regard to the left foot. MUSCULOSKELETAL: As described in the HPI. Generalized weakness also appreciated. PHYSICAL EXAMINATION: VITAL SIGNS: Afebrile, pulse 60s, respiratory rate 18, blood pressure 113/54 and oxygen saturation 96% on room air. GENERAL: This is an obese elderly male, in no distress. ENT: Clear oropharynx. NECK: Supple. No lymphadenopathy. LUNGS: Diminished, but relatively clear. No wheezes or crackles. CARDIOVASCULAR: Heart irregular. No murmurs noted. ABDOMEN: Obese, soft, nontender. No masses. EXTREMITIES: Left lower extremity wound is wrapped, with 1+ edema noted. LABORATORY DATA: White blood cell count 13,000, hemoglobin 12, hematocrit 39 and platelet count 168,000. Sodium 136, potassium 3.8, chloride 100, bicarbonate 25, BUN 50, creatinine is 2.9 and glucose 123. Arterial blood gas yesterday revealed pH of 7.39, pCO2 of 38, pO2 of 80 and bicarbonate 24. IMPRESSION: 1. Left lower extremity cellulitis. 2. Osteomyelitis, status post left second toe amputation one week ago. 3. History of underlying chronic obstructive pulmonary disease. 4. Chronic hypoxemic respiratory failure. 5. Obstructive sleep apnea. 6. Permanent atrial fibrillation. [address] [address] CONSULTATION Name: TJMALOU Room #: 302-P [facility] IN ..#: [id number] Admission: 11/16/16 Attend Phys: Hemalatha Reaves MD Discharge: 11/21/16 Date of : 29 Report #: [id number] 7. Acute renal insufficiency. SUGGESTIONS: 1. Antibiotics per infectious disease. 2. Continue with bronchodilators. 3. Continue with nebulized steroids. 4. No systemic steroids at this time. 5. Continue with nocturnal CPAP. 6. Additional recommendations to follow. We will follow along with you. Thank you for requesting our suggestions. <ELECTRONICALLY SIGNED> By: Jorge Guidry MD 11/22/16 1133 1630 1416 Jorge Guidry MD /nt
--- NOTE | ~2016-11-16 | HC ---
[facility] [place] [address] CONSULTATION Name: TJMALOU Sophy Room #: 302-P ADM IN M.R.#: [id number] Admission: 11/16/16 Attend Phys: Hemalatha Reaves MD Discharge: Date of : 29 Report #: [id number] THIS REPORT FOR: //name// CC: Mark Linares DATE OF SERVICE: 11/18/2016 REASON FOR CONSULTATION: Elevated creatinine. HISTORY OF PRESENT ILLNESS: This is an 86-year-old male who is here for one of multiple recent hospitalizations. He came in 2 nights ago with worsening MRSA cellulitis of his left leg. He has been put on high dose antibiotics for that. When he first came in, he was not having fever. He does describe a chill sensation. He has had intermittent hypotension over the past day or two with several pressures as low as in the 90s systolic. The rest of the time, his blood pressure has been more moderate. We are asked to see him because his creatinine level has risen. He runs a baseline creatinine level of 1.4-1.6 and has been at that level for a very long period of time. By yesterday, it was up to 2.1, today it was up to 2.9. The patient tells me that he voided some urine after admission, but had no further urine output till just now which is over 36 hours later. He reports no spontaneous voiding yesterday. No sensation of needing to urinate yesterday. Today he finally did and was able to pass urine. The RN in the room reports that he had 700 mL of urine out with that voiding. He said he was not very symptomatic of a full bladder until just before he needed to go. We have asked to get a postvoid residual with a bladder scanner, but that has not yet been done. The patient knows of no prior renal-related history. I would note again that his creatinine levels have been chronically elevated dating back at least 4 years. He has longstanding diabetes and hypertension. Old urine sample from previous hospitalizations showed proteinuria, but that has never been quantified and the patient states that he has never seen a nephrologists previously that he recalls. PAST MEDICAL HISTORY: Recent problems with peripheral infections. He has had some toes amputated. He has had a left thumb amputated. Now, he has had problems with the MRSA in his left leg. There is also with the left foot. He has been put on vancomycin and has received what looks to be 4 doses of vancomycin since admission. Apparently he also had some enterococcus present. Vancomycin level has not yet been drawn. He has had longstanding diabetes dating back about 27 years, also some hypertension. He is chronically at home on some losartan as well as some torsemide. It looks like he might have also been getting some chronic naproxen, but on another check it looks like that has been stopped. He has longstanding COPD. He also has longstanding sleep apnea, [address] [address] CONSULTATION Name: MALOU SPENCER Room #: 302-P ADM IN M.R.#: [id number] Admission: 11/16/16 Attend Phys: Hemalatha Reaves MD Discharge: Date of : 29 Report #: [id number] wears CPAP every night. He also has some supplemental oxygen at home. He has some history of diastolic congestive heart failure, also hypothyroidism, on replacement, hyperlipidemia. Multiple surgeries including the left thumb amputation, bilateral inguinal herniorrhaphies, and the lower extremity amputations of the toes as previously noted. MEDICATIONS: On admission include losartan 50 mg daily, levothyroxine 0.175 mg daily, Combivent inhaler, insulin, hydrocodone, gabapentin 300 mg q.i.d., iron, fenofibrate 134 mg daily, Lovenox injections, Aricept 5 mg b.i.d., some calcium and vitamin D, metoprolol 50 mg b.i.d., torsemide 40 mg daily, tramadol, warfarin and some potassium supplementations. Medications are many and include diltiazem, fluticasone, salmeterol, Symbicort, Actos, Spiriva, gemfibrozil, simvastatin, acarbose, Bextra. FAMILY HISTORY: Noncontributory in this 86-year-old male. SOCIAL HISTORY: The patient is a , lives in [place], [place]. He is retired. He is accompanied by a daughter at this time. REVIEW OF SYSTEMS: States he is breathing about his normal on supplemental oxygen. Again, he wears CPAP at night. He had the chill and severe weakness on arrival. No documented fever, denies nausea or vomiting, denies diarrhea, typically no difficulty with urination except for the problems as noted above. Denies current pain. He has had left lower extremity skin changes associated with cellulitis. Unaware of palpitations, although he has had a history of atrial fibrillation. PHYSICAL EXAMINATION: GENERAL: Very pleasant elderly male who remarkably does not look acutely ill at this time. VITAL SIGNS: Blood pressure 119/59, heart rate 70, temperature 97.3, respiratory rate 16, oxygen saturation 94% on 2 liters per nasal cannula. HEENT: Shows pupils are equal and reactive. Sclerae are nonicteric. Oral mucosa is without lesions. NECK: Full. No JVD is noted. CHEST: Show shallow respirations bilaterally, somewhat course, not true rales, rhonchi or wheezes. CARDIOVASCULAR: Heart has a regular rate and rhythm. ABDOMEN: Protuberant, bowel sounds are present. EXTREMITIES: There is a moderate umbilical hernia, which is easily reducible. Impossible to palpate or percuss an enlarged bladder. EXTREMITIES: Show a wrapped area in the left leg of his cellulitis, multiple digit amputations as noted above. [facility] [address] [place] [address] CONSULTATION Name: MALOU SPENCER Room #: 302-P ADM IN .R.#: [id number] Admission: 11/16/16 Attend Phys: Hemalatha Reaves MD Discharge: Date of : 29 Report #: [id number] LABORATORY DATA: From today, sodium 136, potassium 3.8, chloride 100, bicarbonate 25, BUN 50, creatinine 2.9, glucose 123, calcium 8.7, magnesium 1.8. White count 12.6, hemoglobin 12.4, hematocrit 39.4, platelets 168,000, zero eosinophils on differential. No urinalysis at this time. Blood gas on admission pH of 7.39, pCO2 of 37.8, pO2 of 79.7. I reviewed his old images of his kidneys from a few months ago. They showed fairly normal appearing kidneys. From a size standpoint, there was one acquired cyst and no hydronephrosis at that time. ASSESSMENT: 1. Acute kidney injury. He has had an abrupt rise in creatinine. I think most of this is related to his infection. Although we was not febrile, he did develop some hypotension. He has gotten some IV fluids, but he was oligoanuric for 24-36 hours. He has now made a fair amount of urine, so that might be coming down already. He still needs an increased amount of volume, so I will double his IV fluids to 150 mL per hour. He has defervesced nicely otherwise from a symptomatic standpoint with the antibiotics, so hopefully we will see him start to turn the corner fairly rapidly. The other major concern is urinary tension/obstructive uropathy. He passed no urine for nearly 36 hours. He now made 700 mL, so we certainly need to ask whether he is obstructed. We will get a bladder scan. If there is any residual, we will get a Hernandez catheter placed at least temporarily. He has not previously demonstrated problems with urinary retention. 2. Chronic kidney disease stage III with longstanding diabetes and hypertension. He is consistently running creatinine level of 1.5-1.8 and again, that has been very longstanding. He has previous proteinuria and we will certainly want to document that and quantify that once we get over this acute episode. 3. Lower extremity cellulitis. He has been put on high doses of vancomycin. With his rapidly changing glomerular filtration rate, I will get a random vancomycin level. We might want Dr. Jarquin to hold the evening dose if he is already showing very high levels. 4. Sleep apnea, longstanding, wears CPAP. 5. Chronic obstructive pulmonary disease, severe, chronic oxygen therapy. 6. Diabetes mellitus, long-term. 7. Hypertension, transient hypotension since admission, some of his medication have been held. 8. Peripheral vascular disease with multiple peripheral amputations. PLAN: 1. I will bump his IV fluids up, normal saline 150 mL per hour. 2. Check bladder scan. 3. Check urinalysis as well as fractional excretion of sodium. 4. Check a random vancomycin level. If it is high, we will have Dr. Jarquin cut back on his dosing. [facility] [address] [place] [address] CONSULTATION Name: MALOU SPENCER Room #: 302-P ADM IN M.R.#: [id number] Admission: 11/16/16 Attend Phys: Hemalatha Reaves MD Discharge: Date of : 29 Report #: [id number] 5. Repeat full labs in the morning. 6. We will follow along with care of this patient. <ELECTRONICALLY SIGNED> By: Yosi Alegria MD 11/19/16 1011 1302 0409 Noel Vigil MD /nt
[~2016-11-16 16:33] MED LIST changes: +ALEVE220 MG PO; +ARICEPT 5 MG TAB5 MG PO; +CENTRUM SILVER1 EAC4 PO; +DOXYCYCLINE 10100 MG PO; +IRON325 PO; +MAGNESIUM OXID400 MG PO; +OXYGEN; +VICODIN 5-3001 EACH PO; +VITAMINC500 PO
[2016-11-16 16:34] VITALS: BP 166/97
[2016-11-16 17:41] LABS: ABSOLUTE NEUTROPHILS 4.9 thou/uL (1.4-8.2); BASOPHILS 0.4 % (0.0-2.0); EOSINOPHILS 2.6 % (0.0-3.0); HEMATOCRIT 43.2 % (42.0-52.0); HEMOGLOBIN 13.8 gm/dL (14.0-18.0); LYMPHOCYTES 23.6 % (24.0-44.0); MANUAL DIFF NO; MCH 28.6 pg (26.0-34.0); MCHC 31.9 g/dL (28.0-37.0); MCV 89.5 fL (80.0-100.0); MONOCYTES 11.5 % (1.0-8.0); PLATELET COUNT 271 thou/uL (150-400); POLYS 61.9 % (36.0-66.0); RBC 4.83 mil/uL (4.50-6.00); RDW 17.5 % (10.5-14.5); WBC 7.8 thou/uL (4.0-11.0)
[2016-11-16 17:51] LABS: CALCIUM 10.2 mg/dL (8.5-10.1); CREATININE 1.4 mg/dL (0.7-1.3); POTASSIUM 4.2 mmol/L (3.5-5.1)
[2016-11-16 17:54] LABS: ALBUMIN 3.5 g/dL (3.4-5.0); INR 1.4; PROTIME 14.8 Seconds (9.3-11.4); TOTAL BILIRUBIN 0.4 mg/dL (<0.1-1.0); TOTAL PROTEIN 8.2 g/dL (6.4-8.2)
[2016-11-16 19:49] VITALS: BP 163/73
[2016-11-16 20:20] VITALS: BP 188/98
[2016-11-16 23:53] VITALS: BP 94/47
[2016-11-17] MEDS ORDERED: PRESERVISION A1 EAC2 PO (00:40)
[2016-11-17] MEDS ORDERED: DOCUSATE SODIU100 MG PO (00:41)
[2016-11-17] MEDS ORDERED: ALEVE220 MG PO (00:42)
[2016-11-17] MEDS ORDERED: MAGNESIUM OXID400 MG PO (00:43)
[2016-11-17] MEDS ORDERED: KLOR-CON 1010 MEQ PO (00:43)
[2016-11-17 01:34] LABS: ABG SAMPLE TYPE ARTERIAL; BE(vivo) -2.1 mmol/L (-2 to +3); HCO3 22.4 mmol/L (22.0-26.0); O2(CT) 20.8 mL/dL (15.0-23.0); O2Hb 93.6 % (92.0-98.0); PCO2 37.8 mmHg (35.0-45.0); PO2 79.7 mmHg (80.0-100.0); sO2 95.7 % (92.0-98.0); tCO2 23.5 mmol/L (24.0-30.0)
[2016-11-17 01:35] LABS: FIO2 32 %; LACTATE 4.63 mmol/L (0.5-2.0); Pressure Support 2 cm H20; STICK SITE L.RADIAL
[2016-11-17 04:20] VITALS: BP 114/70
[2016-11-17 06:36] LABS: HEMOGLOBIN 13.8 gm/dL (14.0-18.0); WBC 11.8 thou/uL (4.0-11.0)
[2016-11-17 06:38] LABS: HEMATOCRIT 44.2 % (42.0-52.0); MCH 28.2 pg (26.0-34.0); MCHC 31.2 g/dL (28.0-37.0); MCV 90.3 fL (80.0-100.0); RBC 4.9 mil/uL (4.50-6.00); RDW 17.6 % (10.5-14.5)
[2016-11-17 06:42] LABS: CALCIUM 9.2 mg/dL (8.5-10.1); CREATININE 2.1 mg/dL (0.7-1.3); POTASSIUM 4.2 mmol/L (3.5-5.1)
[2016-11-17 06:49] LABS: INR 1.6; PROTIME 16.3 Seconds (9.3-11.4)
[2016-11-17 08:00] VITALS: BP 89/67
[2016-11-17 15:46] VITALS: BP 105/65
[2016-11-17 19:17] VITALS: BP 94/53
[2016-11-18 03:23] VITALS: BP 99/55
[2016-11-18 07:33] VITALS: BP 119/59
[2016-11-18 07:50] LABS: HEMATOCRIT 39.4 % (42.0-52.0); HEMOGLOBIN 12.4 gm/dL (14.0-18.0); MCHC 31.5 g/dL (28.0-37.0); PLATELET COUNT 168 thou/uL (150-400); RBC 4.43 mil/uL (4.50-6.00); RDW 17.9 % (10.5-14.5); WBC 12.6 thou/uL (4.0-11.0)
[2016-11-18 07:54] LABS: CALCIUM 8.7 mg/dL (8.5-10.1); CREATININE 2.9 mg/dL (0.7-1.3); MAGNESIUM 1.8 mg/dL (1.8-2.4); POTASSIUM 3.8 mmol/L (3.5-5.1)
[2016-11-18 08:18] LABS: MANUAL DIFF YES
[2016-11-18 08:23] LABS: INR 1.5; PROTIME 15.6 Seconds (9.3-11.4)
[2016-11-18 10:26] LABS: ANISOCYTOSIS 1+; METAMYELOCYTES 1 %; NUCLEATED RBCS 1 /100WBC; TOTAL CELL COUNT 100
[2016-11-18 15:42] LABS: URINE BILIRUBIN NEGATIVE (Negative); URINE BLOOD NEGATIVE (Negative); URINE COLOR YELLOW; URINE GLUCOSE-RANDOM* NEGATIVE (Negative); URINE KETONES NEGATIVE (Negative); URINE LEUKOCYTES-REFLEX NEGATIVE (Negative); URINE PROTEIN (DIPSTICK) 1+ (Negative); URINE SPECIFIC GRAVITY <= 1.005 (1.003-1.035); URINE UROBILINOGEN 0.2 E.U./dl (0.2-1.0)
[2016-11-18 15:47] VITALS: BP 113/54
[2016-11-18 15:58] LABS: CASTS None Seen /LPF (None Seen); CRYSTALS None Seen /LPF (None Seen); SQUAMOUS 4-10 Moderate /LPF (0-3)
[2016-11-18 15:59] LABS: AMORPHOUS URATES Few /LPF (None Seen); URINE WBC-REFLEX None Seen /HPF (0-5)
[2016-11-18 16:00] LABS: URINE RBC 0-2 Rare /HPF (0-2)
[2016-11-18 19:19] VITALS: BP 155/91
[2016-11-18 23:16] LABS: ALBUMIN 2.8 g/dL (3.4-5.0); CALCIUM 9.1 mg/dL (8.5-10.1); CREATININE 2.4 mg/dL (0.7-1.3); PHOSPHORUS 3.7 mg/dL (2.5-4.9); POTASSIUM 4.3 mmol/L (3.5-5.1)
[2016-11-19 03:14] VITALS: BP 159/99
[2016-11-19 07:54] LABS: ABSOLUTE NEUTROPHILS 8.4 thou/uL (1.4-8.2); BASOPHILS 0.9 % (0.0-2.0); EOSINOPHILS 1.9 % (0.0-3.0); HEMATOCRIT 41.1 % (42.0-52.0); HEMOGLOBIN 12.8 gm/dL (14.0-18.0); LYMPHOCYTES 10.6 % (24.0-44.0); MCH 28.2 pg (26.0-34.0); MCHC 31.1 g/dL (28.0-37.0); MCV 90.7 fL (80.0-100.0); MONOCYTES 7.6 % (1.0-8.0); PLATELET COUNT 153 thou/uL (150-400); RBC 4.53 mil/uL (4.50-6.00); RDW 18.3 % (10.5-14.5); WBC 10.6 thou/uL (4.0-11.0)
[2016-11-19 07:55] LABS: MANUAL DIFF NO
[2016-11-19 08:05] LABS: CALCIUM 9.1 mg/dL (8.5-10.1); CREATININE 2.1 mg/dL (0.7-1.3); POTASSIUM 4.3 mmol/L (3.5-5.1)
[2016-11-19 08:07] LABS: INR 1.2; PROTIME 12.8 Seconds (9.3-11.4)
[2016-11-19 10:10] VITALS: BP 153/88
[2016-11-19 16:30] VITALS: BP 174/95
[2016-11-19 19:30] VITALS: BP 178/95
[2016-11-20 03:30] VITALS: BP 151/87
[2016-11-20 05:51] LABS: HEMATOCRIT 40.9 % (42.0-52.0); HEMOGLOBIN 12.9 gm/dL (14.0-18.0); MCH 28.5 pg (26.0-34.0); MCHC 31.5 g/dL (28.0-37.0); MCV 90.4 fL (80.0-100.0); RBC 4.53 mil/uL (4.50-6.00); RDW 18.1 % (10.5-14.5); WBC 9.9 thou/uL (4.0-11.0)
[2016-11-20 06:02] LABS: INR 1.2; PROTIME 12.8 Seconds (9.3-11.4)
[2016-11-20 06:26] LABS: ALBUMIN 2.8 g/dL (3.4-5.0); CALCIUM 9.2 mg/dL (8.5-10.1); CREATININE 1.7 mg/dL (0.7-1.3); PHOSPHORUS 3.5 mg/dL (2.5-4.9); POTASSIUM 3.8 mmol/L (3.5-5.1)
[2016-11-20 07:28] VITALS: BP 149/82
[2016-11-20 17:09] VITALS: BP 185/95
[2016-11-20 20:15] VITALS: BP 194/99
[2016-11-20 23:47] VITALS: BP 194/98
[2016-11-21 01:07] VITALS: BP 138/80
[2016-11-21 03:45] VITALS: BP 141/76
[2016-11-21 03:58] LABS: HEMATOCRIT 39.8 % (42.0-52.0); HEMOGLOBIN 12.7 gm/dL (14.0-18.0); MCH 28.4 pg (26.0-34.0); MCHC 31.9 g/dL (28.0-37.0); MCV 88.8 fL (80.0-100.0); RBC 4.48 mil/uL (4.50-6.00); RDW 17.5 % (10.5-14.5); WBC 9.1 thou/uL (4.0-11.0)
[2016-11-21 04:12] LABS: INR 1.4
[2016-11-21 04:16] LABS: CREATININE 1.5 mg/dL (0.7-1.3); POTASSIUM 3.7 mmol/L (3.5-5.1)
[2016-11-21 04:17] LABS: ALBUMIN 2.7 g/dL (3.4-5.0); CALCIUM 9.5 mg/dL (8.5-10.1); PHOSPHORUS 3.9 mg/dL (2.5-4.9)
[2016-11-21 07:49] VITALS: BP 181/95
[2016-11-21] MEDS ORDERED: TRAMADOL 50 MG50 MG PO (09:59)
[2016-11-21] MEDS ORDERED: ELIQUIS2.5 MG PO (09:59)
[2016-11-21] MEDS ORDERED: NOVOLIN N100 UNIT/3 SQ (09:59)
[2016-11-21] MEDS ORDERED: VICODIN 5-3001 EACH PO (09:59)
[2016-11-21] MEDS ORDERED: DOXYCYCLINE 10100 MG PO (09:59)
[2016-11-21 12:06] VITALS: BP 181/95
[2016-11-21] MEDS ORDERED: AEROSPAN8.9 GM IH (13:17)
[2016-11-21] MEDS ORDERED: CALCIUM 600 +1 EAC1 PO (13:17)
[2016-11-21] MEDS ORDERED: BROVANA15 MCG/2 M INH (13:18)
[2016-11-21] MEDS ORDERED: COMBIVENT INH (13:18)
[2016-11-21] MEDS ORDERED: FENOFIBRATE134 MG PO (13:19)
[2016-11-21] MEDS ORDERED: LEVOTHYROXIN0.175 MG PO (13:19)
[2016-11-21] MEDS ORDERED: NEURONTIN300 MG PO (13:20)
[2016-11-21] MEDS ORDERED: COZAAR 50 MG TA50 M1 PO (13:21)
[2016-11-21] MEDS ORDERED: DEMADEX 2020 MG/1 TA PO (13:21)
[2016-11-21] MEDS ORDERED: VITAMINC500 PO (13:22)
[2016-11-21] MEDS ORDERED: IRON325 PO (13:22)
[2016-11-21] MEDS ORDERED: LOPRESSOR50 PO (13:22)
[2016-11-21] MEDS ORDERED: ARICEPT 5 MG TAB5 MG PO (13:23)
[2016-11-21] MEDS ORDERED: CENTRUM SILVER1 EAC4 PO (13:23)
[2016-11-21] MEDS ORDERED: DOCUSATE SODIU100 MG PO (13:24)
[2016-11-21] MEDS ORDERED: MAGNESIUM OXID400 MG PO (13:24)
[2016-11-21] MEDS ORDERED: PRESERVISION A1 EAC2 PO (13:24)
[2016-11-21] MEDS ORDERED: KLOR-CON 1010 MEQ PO (13:25)
[2016-11-21 13:32] VITALS: BP 181/95
== END 2016-11-21 14:27 | disposition home health service (06) | DRG 871 ==
LOC: ER 16:33 → 3N 19:16 → EROBS 19:16 → 3N 19:52
PROVIDERS: Internal Medicine; Internal Medicine Nephrology; Nurse Practitioner Family; Physician Assistant
DX: A41.9 Sepsis, unspecified organism (principal); E43 Unspecified severe protein-calorie malnutrition; N17.9 Acute kidney failure, unspecified; L03.116 Cellulitis of left lower limb; I13.0 Hypertensive heart and chronic kidney disease with heart failure and stage 1 through stage 4 chronic kidney disease, or unspecified chronic kidney disease; J96.11 Chronic respiratory failure with hypoxia; M86.9 Osteomyelitis, unspecified; E11.52 Type 2 diabetes mellitus with diabetic peripheral angiopathy with gangrene; E44.0 Moderate protein-calorie malnutrition; I25.10 Atherosclerotic heart disease of native coronary artery without angina pectoris; E03.9 Hypothyroidism, unspecified; E78.5 Hyperlipidemia, unspecified; J44.9 Chronic obstructive pulmonary disease, unspecified; I50.9 Heart failure, unspecified; M19.90 Unspecified osteoarthritis, unspecified site; E11.40 Type 2 diabetes mellitus with diabetic neuropathy, unspecified; I95.9 Hypotension, unspecified; N18.3 Chronic kidney disease, stage 3 (moderate); M10.9 Gout, unspecified; G47.33 Obstructive sleep apnea (adult) (pediatric); I27.2 Other secondary pulmonary hypertension; E11.69 Type 2 diabetes mellitus with other specified complication; I48.2 Chronic atrial fibrillation; I87.2 Venous insufficiency (chronic) (peripheral); B95.62 Methicillin resistant Staphylococcus aureus infection as the cause of diseases classified elsewhere; B95.2 Enterococcus as the cause of diseases classified elsewhere; S80.812A Abrasion, left lower leg, initial encounter; X58.XXXA Exposure to other specified factors, initial encounter; Y93.89 Activity, other specified; Z89.012 Acquired absence of left thumb; Z79.899 Other long term (current) drug therapy; Z88.1 Allergy status to other antibiotic agents; Z88.8 Allergy status to other drugs, medicaments and biological substances; Z79.4 Long term (current) use of insulin; Z83.6 Family history of other diseases of the respiratory system; Z99.81 Dependence on supplemental oxygen; Z85.51 Personal history of malignant neoplasm of bladder; Z88.6 Allergy status to analgesic agent; Z87.891 Personal history of nicotine dependence; Z89.422 Acquired absence of other left toe(s); Z68.39 Body mass index [BMI] 39.0-39.9, adult; Y92.89 Other specified places as the place of occurrence of the external cause; Y99.8 Other external cause status
CPT/HCPCS: 10094

== ENCOUNTER → 2016-11-26 | Outpatient (CLI) | payer OTHER ==
[~2016-11-26] MED LIST changes: +DOCUSATE SODIU100 MG PO; +ELIQUIS2.5 MG PO; +PRESERVISION A1 EAC2 PO
== END ==
LOC: HYPER 07:18
DX: T81.89XA Other complications of procedures, not elsewhere classified, initial encounter (principal); E11.621 Type 2 diabetes mellitus with foot ulcer; L97.521 Non-pressure chronic ulcer of other part of left foot limited to breakdown of skin; L89.892 Pressure ulcer of other site, stage 2; L89.894 Pressure ulcer of other site, stage 4; I87.303 Chronic venous hypertension (idiopathic) without complications of bilateral lower extremity; E11.40 Type 2 diabetes mellitus with diabetic neuropathy, unspecified; I89.0 Lymphedema, not elsewhere classified; E11.69 Type 2 diabetes mellitus with other specified complication; M86.372 Chronic multifocal osteomyelitis, left ankle and foot; G47.30 Sleep apnea, unspecified; E11.36 Type 2 diabetes mellitus with diabetic cataract; J44.9 Chronic obstructive pulmonary disease, unspecified; I11.0 Hypertensive heart disease with heart failure; I50.9 Heart failure, unspecified; M19.90 Unspecified osteoarthritis, unspecified site; E78.00 Pure hypercholesterolemia, unspecified; E03.9 Hypothyroidism, unspecified; I25.10 Atherosclerotic heart disease of native coronary artery without angina pectoris; Z79.4 Long term (current) use of insulin; Z87.891 Personal history of nicotine dependence; Z72.89 Other problems related to lifestyle; Y92.89 Other specified places as the place of occurrence of the external cause; Y83.8 Other surgical procedures as the cause of abnormal reaction of the patient, or of later complication, without mention of misadventure at the time of the procedure

== ENCOUNTER 2017-05-03 18:26 | Inpatient (IN) | payer OTHER ==
[~2017-05-03] VITALS: Ht 177.8 cm; Wt 110.7 kg
--- NOTE | ~2017-05-03 | S ---
[facility] [place] [address] SURGICAL PATH RPT PROCEDURE Name: MALOU VAZQUEZ Room #: 420-P DIS IN M.R.#: [id number] Admission: 05/03/17 Date of : 29 Discharge: 05/06/17 Report #: [id number] Path Case #: [id number] PATHOLOGY REPORT COLLECTION DATE: 05/04/2017 RECEIVED DATE: 05/06/2017 SUBMITTING PHYS: Dr. Jeremy Wasserman OTHER PHYS: Georgia Kolb Dr[address] Dr. SPECIMEN(S) RECEIVED: A.Right second toe * * * * * * * * * * * * FINAL DIAGNOSIS: Toe, right second toe, amputation: - Ulceration, as well as gangrenous necrosis of the skin. - Marked acute inflammation extending from the subcutaneous tissue into the underlying bone. - Bone margin unremarkable. (IUV:mgr; 05/07/2017) PATHOLOGIST: Eva Cárdenas M.D. REPORT ELECTRONICALLY SIGNED BY: Eva Cárdenas M.D. DATE/TIME: 05/07/2017 14:12 * * * * * * * * * * * * GROSS PATHOLOGY: The specimen is received in formalin, labeled "Malou Vazquez, right second toe," and consists of a disarticulated toe measuring 5.8 x 2.3 x 2.1 cm. No nail is grossly identified. The skin is ochoa-mathews with extensive black-brown to yellow-green discoloration and induration that grossly appears to extend to the nearest skin soft tissue margin. The proximal bone margin is concave, smooth, and mathews-brown. Retail Manager sections are submitted as follows: A1: Skin and soft tissue margin A2: Toe, longitudinal section distal following decalcification A3: Toe, longitudinal section proximal following decalcification (SDY; 05/06/2017) CLINICAL HISTORY: Osteomyelitis right second toe INITIAL CPT CODE(S): [address] [address] SURGICAL PATH RPT PROCEDURE Name: MALOU VAZQUEZ Room #: 420-P [facility] IN ..#: [id number] Admission: 05/03/17 Date of : 29 Discharge: 05/06/17 Report #: [id number] Path Case #: [id number]; [id number], [id number] Professional services performed by [facility] at [address], [place] [address] Technical services performed by [facility] at [address] [place] [address], [place] [address]. [facility] [place] [address] PHONE: [phone] DIRECTOR: Malik Michaels M.D. * * * END OF REPORT * * *
--- NOTE | ~2017-05-03 | HC ---
[facility] [place] [address] CONSULTATION Name: SPENECRMALOU Room #: 420-P [facility]..#: [id number] Admission: 05/03/17 Attend Phys: Florina Chang MD Discharge: 05/06/17 Date of : 29 Report #: [id number] THIS REPORT FOR: //name// CC: Willian Linares DATE OF SERVICE: 05/05/2017 REASON FOR CONSULTATION: Diabetes mellitus with cellulitis, gangrene and osteomyelitis of right second toe in the setting of diabetes mellitus type 2, diabetic peripheral neuropathy and peripheral vascular disease. HISTORY OF PRESENT ILLNESS: The patient is a very pleasant 86-year-old gentleman well known to us at [facility] where we cared for him for diabetic complications of his left second toe earlier in this year, October or November. He developed cellulitis and osteomyelitis of his left second toe related to diabetes and underwent left second toe amputation on 11/16/2016. The patient presented at this time with some trauma to his right second toe approximately 2 months ago. This progressed to cellulitis and then gangrene. I came to see the patient yesterday; however, he had already been taken to surgery by Dr. Jeremy Wasserman and underwent amputation of his right second toe after plain films showing bony erosion of the distal phalangeal tuft. Arterial Dopplers did show some peripheral vascular disease with 2-vessel runoff to the foot with occlusion of the right posterior tibial artery. The patient is now postoperative day #1, status post right second toe amputation. PAST MEDICAL HISTORY: 1. Diabetes mellitus type 2 with peripheral neuropathy. 2. History of MRSA. 3. Atrial fibrillation. 4. Congestive heart failure. 5. Chronic obstructive pulmonary disease, emphysema. 6. History of osteomyelitis of his left second toe, now right second toe. 7. Coronary artery disease. 8. Sleep apnea. 9. Hypothyroidism. 10. Hypertension. ALLERGIES: INCLUDE BUDESONIDE, GEMFIBROZIL, DILTIAZEM, FLUTICASONE, SYMBICORT, ADVAIR, SIMVASTATIN, ACARBOSE, FORMOTEROL, BEXTRA, ACTOS AND SPIRIVA. MEDICATIONS: Include Eliquis, Ultram, Novolin insulin, Flovent, Brovana, Synthroid, fenofibric Cozaar, torsemide, Lopressor, Aricept and magnesium. REVIEW OF SYSTEMS: The patient has had recent worsening right second toe with [facility] [address] [place] [address] CONSULTATION Name: SPENCERMALOU Room #: 420-P DIS IN [facility]#: [id number] Admission: 05/03/17 Attend Phys: Florina Chang MD Discharge: 05/06/17 Date of : 29 Report #: [id number] redness and drainage. PAST SURGICAL Colonoscopy, bilateral inguinal hernia repair, left second toe amputation on 11/16/2016, amputation of left thumb. PHYSICAL EXAMINATION: GENERAL: Shows a well-appearing elderly gentleman. VITAL SIGNS: Stable. HEART: Rate is irregularly irregular. HEENT: Mucous membranes are moist. ABDOMEN: Obese and soft. LUNGS: Respirations are unlabored. EXTREMITIES: Upper extremity exam shows amputation of thumb. Examination of the lower extremities showed some evidence of chronic venous stasis with hemosiderin deposition and discoloration of both legs. Examination of left foot shows amputation of the left second toe at the base of the toe with amputation site completely healed. Examination of the right foot shows postoperative day 1 right toe amputation with clean incision line at the base of the toe with intact nylon sutures. Minimal redness, minimal drainage. No wound disruption. Wound is redressed with Xeroform gauze. IMPRESSION: Diabetes mellitus type 2 with neuropathy and subsequent cellulitis, osteomyelitis and gangrene of the right second toe in the setting of diabetic neuropathy. The patient is postoperative day #1 right second toe amputation. There is history of methicillin-resistant staphylococcus aureus. PLAN: Continue IV antibiotics, wound dressing with Xeroform dressing and a bulky Kerlix. Recent arteriogram shows 2-vessel runoff to the foot with occlusion of the posterior tibial artery, vascularization should be adequate for healing. Wound care team will follow status post right second toe amputation. <ELECTRONICALLY SIGNED> By: Elan Charles MD 05/07/17 0910 [id number] Elan Charles MD /nt
--- NOTE | ~2017-05-03 | O ---
[facility] [place] [address] OPERATIVE REPORT Name: TJMALOU Sophy Room #: 420-P ADM IN M.R.#: [id number] Admission: 05/03/17 Attend Phys: Willian Vo MD Discharge: Date of : 29 Report #: [id number] THIS REPORT FOR: //name// CC: Willian Linares MD DATE OF SERVICE: 05/04/2017 PREOPERATIVE DIAGNOSIS: Right foot second toe gangrene. POSTOPERATIVE DIAGNOSIS: Right foot second toe gangrene. PROCEDURE: Right second toe amputation. SURGEON: Jeremy Wasserman MD REMELT WORKER: Nisha Swann. ANESTHETIC: General. INDICATIONS: See [facility] H and P. DESCRIPTION OF PROCEDURE: After adequate general anesthesia had been obtained, the patient's right lower extremity was prepped and draped in the usual meticulous sterile fashion. We made a racquet shaped incision around the second toe. Full thickness flaps were elevated. There was no gross purulence at the base of his toe. We irrigated copiously, cauterized a couple of small bleeders, used a 2-0 Vicryl to close the deep capsular layer and then used nylon to place horizontal mattress sutures. Sterile compressive dressing was applied. No tourniquet utilized. By: 1431 1444 Jeremy Wasserman MD /nt
--- NOTE | ~2017-05-03 | D ---
[facility] [place] [address] DISCHARGE SUMMARY Name: TJMALOU Sophy Room #: 420-P [facility] IN ..#: [id number] Admission: 05/03/17 Attend Phys: Florina Chang MD Discharge: 05/06/17 Date of : 29 Report #: [id number] THIS REPORT FOR: //name// CC: Mark Linares DATE OF SERVICE: 05/06/2017 HISTORY OF PRESENT ILLNESS: The patient is an 86-year-old man with multiple medical problems, who came to the hospital with discoloration of second toe on the right. Please refer to the admission H and P for details. In brief, the patient was found to have gangrene and osteomyelitis of the second toe with cellulitis of the right foot. HOSPITALIZATION COURSE: The patient was hospitalized at [facility]. Orthopedic surgeon was consulted. Next day of admission the patient underwent amputation of the toe. After the procedure, the patient did well. This morning, the patient is doing well. His physical examination is acceptable. His pain is well controlled. He would like to go home. The patient is already seen by orthopedic surgeon, and outpatient wound care followup is recommended. 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 SECONDARY DIAGNOSES: Includes: 1. Chronic obstructive pulmonary disease. 2. Chronic kidney disease stage 3. 3. Atrial fibrillation. 4. Congestive heart failure with diastolic dysfunction. 5. Diabetes mellitus type 2. 6. Hypertension. DISPOSITION: The patient is discharged home. FOLLOWUP PLAN: 1. Follow up with the primary care physician in 1-2 weeks. 2. Follow up with wound care clinic as advised. DISCHARGE MEDICATIONS: Please refer to the medication reconciliation list. [facility] [address] [place] [address] DISCHARGE SUMMARY Name: MALOU SPENCER Room #: 420-P [facility] IN ..#: [id number] Admission: 05/03/17 Attend Phys: Florina Chang MD Discharge: 05/06/17 Date of : 29 Report #: [id number] I spent more than 30 minutes to coordinate the patient's discharge from the hospital. <ELECTRONICALLY SIGNED> By: Hemalatha Reaves MD 05/06/17 2026 1032 1138 Hemalatha Reaves MD /nt
[2017-05-03 18:28] VITALS: BP 151/77
[2017-05-03 19:29] LABS: HEMATOCRIT 51.7 % (42.0-52.0); HEMOGLOBIN 16.7 gm/dL (14.0-18.0); MANUAL DIFF YES; MCH 30.1 pg (26.0-34.0); MCHC 32.3 g/dL (28.0-37.0); MCV 93.3 fL (80.0-100.0); PLATELET COUNT 366 thou/uL (150-400); RBC 5.54 mil/uL (4.50-6.00); RDW 14.6 % (10.5-14.5); WBC 17.1 thou/uL (4.0-11.0)
[2017-05-03] MEDS ORDERED: KEFLEX500 M1 PO (19:39)
[2017-05-03] MEDS ORDERED: KLOR-CON 1010 MEQ PO (19:40)
[2017-05-03] MEDS ORDERED: NEURONTIN 300300 M1 PO (19:40)
[2017-05-03 20:00] LABS: ABSOLUTE NEUTROPHILS 15.9 thou/uL (1.4-8.2); TOTAL CELL COUNT 100
[2017-05-03 20:01] LABS: LARGE PLATELETS OCCASIONAL
[2017-05-03 20:12] VITALS: BP 145/67
[2017-05-03 20:17] LABS: CALCIUM 10.1 mg/dL (8.5-10.1); CREATININE 1.7 mg/dL (0.7-1.3)
[2017-05-03 20:19] LABS: ALBUMIN 3.7 g/dL (3.4-5.0); TOTAL BILIRUBIN 0.4 mg/dL (<0.1-1.0); TOTAL PROTEIN 8.6 g/dL (6.4-8.2)
[2017-05-03 21:20] VITALS: BP 152/84
[2017-05-04 01:55] LABS: HEMATOCRIT 46.3 % (42.0-52.0); HEMOGLOBIN 15.2 gm/dL (14.0-18.0); MCH 30.6 pg (26.0-34.0); MCHC 32.7 g/dL (28.0-37.0); MCV 93.4 fL (80.0-100.0); RBC 4.96 mil/uL (4.50-6.00); RDW 14.5 % (10.5-14.5); WBC 13.8 thou/uL (4.0-11.0)
[2017-05-04 02:01] LABS: CALCIUM 8.7 mg/dL (8.5-10.1); CREATININE 0.9 mg/dL (0.7-1.3); POTASSIUM 3.8 mmol/L (3.5-5.1)
[2017-05-04 03:39] VITALS: BP 125/70
[2017-05-04 16:13] VITALS: BP 158/93
[2017-05-04 21:30] VITALS: BP 163/101
[2017-05-05 00:10] LABS: GLYCOHEMOGLOBIN (HGB A1C) 7.3 % (4.8-5.6)
[2017-05-05 04:30] VITALS: BP 137/75
[2017-05-05 06:02] LABS: ABSOLUTE NEUTROPHILS 8.9 thou/uL (1.4-8.2); BASOPHILS 0.9 % (0.0-2.0); CALCIUM 9.2 mg/dL (8.5-10.1); CREATININE 1.7 mg/dL (0.7-1.3); EOSINOPHILS 2.7 % (0.0-3.0); HEMATOCRIT 42.3 % (42.0-52.0); HEMOGLOBIN 13.5 gm/dL (14.0-18.0); MCH 29.8 pg (26.0-34.0); MCV 93.2 fL (80.0-100.0); MONOCYTES 8.2 % (1.0-8.0); PLATELET COUNT 321 thou/uL (150-400); POLYS 75.2 % (36.0-66.0); POTASSIUM 4.1 mmol/L (3.5-5.1); RBC 4.54 mil/uL (4.50-6.00); WBC 11.8 thou/uL (4.0-11.0)
[2017-05-05 06:15] LABS: MANUAL DIFF NO
[2017-05-05 07:30] VITALS: BP 146/83
[2017-05-05 15:15] VITALS: BP 185/87
[2017-05-05 20:21] VITALS: BP 147/79
[2017-05-06 03:13] VITALS: BP 157/86
[2017-05-06 04:24] LABS: ABSOLUTE NEUTROPHILS 6.1 thou/uL (1.4-8.2); BASOPHILS 1.2 % (0.0-2.0); EOSINOPHILS 3.5 % (0.0-3.0); HEMATOCRIT 42.7 % (42.0-52.0); HEMOGLOBIN 13.7 gm/dL (14.0-18.0); LYMPHOCYTES 18.3 % (24.0-44.0); MCH 30.2 pg (26.0-34.0); MCV 94.3 fL (80.0-100.0); PLATELET COUNT 286 thou/uL (150-400); RBC 4.53 mil/uL (4.50-6.00); WBC 9.1 thou/uL (4.0-11.0)
[2017-05-06 04:35] LABS: CALCIUM 8.8 mg/dL (8.5-10.1); CREATININE 1.6 mg/dL (0.7-1.3); POTASSIUM 4.4 mmol/L (3.5-5.1)
[2017-05-06 04:38] LABS: MANUAL DIFF NO
[2017-05-06 08:44] VITALS: BP 179/93
[2017-05-06] MEDS ORDERED: DOXYCYCLINE 10100 MG PO (10:41)
[2017-05-06 11:08] VITALS: BP 179/93
== END 2017-05-06 13:54 | disposition home health service (06) | DRG 853 ==
LOC: ER 18:26 → 4E 19:16 → EROBS 19:16 → 4E 20:57 → ENTRNSPT 05-06 13:40 → EDTRNSPTSTS 05-06 13:42 → 4E 05-06 13:54
PROVIDERS: Internal Medicine Endocrinology, Diabetes & Metabolism; Nurse Practitioner Acute Care; Nurse Practitioner Family
PROC: 0Y6R0Z3 Detachment at Right 2nd Toe, Low, Open Approach (ICD-10-PCS; principal; 2017-05-04)
DX: A41.9 Sepsis, unspecified organism (principal); N17.0 Acute kidney failure with tubular necrosis; L03.115 Cellulitis of right lower limb; E11.52 Type 2 diabetes mellitus with diabetic peripheral angiopathy with gangrene; I50.30 Unspecified diastolic (congestive) heart failure; I13.0 Hypertensive heart and chronic kidney disease with heart failure and stage 1 through stage 4 chronic kidney disease, or unspecified chronic kidney disease; M86.8X7 Other osteomyelitis, ankle and foot; R65.20 Severe sepsis without septic shock; I25.10 Atherosclerotic heart disease of native coronary artery without angina pectoris; E03.9 Hypothyroidism, unspecified; E78.5 Hyperlipidemia, unspecified; E11.69 Type 2 diabetes mellitus with other specified complication; M19.90 Unspecified osteoarthritis, unspecified site; J43.9 Emphysema, unspecified; N18.3 Chronic kidney disease, stage 3 (moderate); E11.22 Type 2 diabetes mellitus with diabetic chronic kidney disease; E11.649 Type 2 diabetes mellitus with hypoglycemia without coma; I48.2 Chronic atrial fibrillation; G47.33 Obstructive sleep apnea (adult) (pediatric); Z79.4 Long term (current) use of insulin; Z79.899 Other long term (current) drug therapy; Z88.8 Allergy status to other drugs, medicaments and biological substances; Z87.891 Personal history of nicotine dependence; E11.42 Type 2 diabetes mellitus with diabetic polyneuropathy; Z86.14 Personal history of Methicillin resistant Staphylococcus aureus infection
CPT/HCPCS: 10183; 50010; 50101; 50386; 56524; 56527; 57091; 62110; 62900; 70005

== ENCOUNTER → 2017-05-15 | Outpatient (CLI) | payer OTHER ==
[~2017-05-15] MED LIST changes: +KEFLEX500 M1 PO
== END ==
LOC: HYPER
DX: T81.31XA Disruption of external operation (surgical) wound, not elsewhere classified, initial encounter (principal); G47.30 Sleep apnea, unspecified; E11.36 Type 2 diabetes mellitus with diabetic cataract; J44.9 Chronic obstructive pulmonary disease, unspecified; I11.0 Hypertensive heart disease with heart failure; I50.9 Heart failure, unspecified; I49.9 Cardiac arrhythmia, unspecified; M19.90 Unspecified osteoarthritis, unspecified site; M10.9 Gout, unspecified; E78.00 Pure hypercholesterolemia, unspecified; E03.9 Hypothyroidism, unspecified; I25.10 Atherosclerotic heart disease of native coronary artery without angina pectoris; E11.69 Type 2 diabetes mellitus with other specified complication; M86.9 Osteomyelitis, unspecified; Z87.891 Personal history of nicotine dependence; Z89.421 Acquired absence of other right toe(s); Z79.4 Long term (current) use of insulin; Z79.02 Long term (current) use of antithrombotics/antiplatelets; Z85.51 Personal history of malignant neoplasm of bladder; Z72.89 Other problems related to lifestyle; Y83.8 Other surgical procedures as the cause of abnormal reaction of the patient, or of later complication, without mention of misadventure at the time of the procedure; Y92.89 Other specified places as the place of occurrence of the external cause

== ENCOUNTER → 2017-05-29 | Outpatient (CLI) | payer OTHER | LOC: HYPER 06:45 | DX: T81.31XD Disruption of external operation (surgical) wound, not elsewhere classified, subsequent encounter (principal); E11.36 Type 2 diabetes mellitus with diabetic cataract; E11.69 Type 2 diabetes mellitus with other specified complication; M86.8X8 Other osteomyelitis, other site; E78.00 Pure hypercholesterolemia, unspecified; E03.9 Hypothyroidism, unspecified; J44.9 Chronic obstructive pulmonary disease, unspecified; I11.0 Hypertensive heart disease with heart failure; I50.9 Heart failure, unspecified; I25.10 Atherosclerotic heart disease of native coronary artery without angina pectoris; M19.90 Unspecified osteoarthritis, unspecified site; G47.39 Other sleep apnea; Z79.4 Long term (current) use of insulin; Z86.14 Personal history of Methicillin resistant Staphylococcus aureus infection; Z85.51 Personal history of malignant neoplasm of bladder; Z87.891 Personal history of nicotine dependence; Z72.89 Other problems related to lifestyle; Z79.02 Long term (current) use of antithrombotics/antiplatelets; Z89.421 Acquired absence of other right toe(s); Y83.8 Other surgical procedures as the cause of abnormal reaction of the patient, or of later complication, without mention of misadventure at the time of the procedure ==

== ENCOUNTER → 2017-06-19 | Outpatient (CLI) | payer OTHER | LOC: HYPER 06:55 | DX: T81.31XD Disruption of external operation (surgical) wound, not elsewhere classified, subsequent encounter (principal); J44.9 Chronic obstructive pulmonary disease, unspecified; I11.0 Hypertensive heart disease with heart failure; I50.9 Heart failure, unspecified; M19.90 Unspecified osteoarthritis, unspecified site; E78.00 Pure hypercholesterolemia, unspecified; E03.9 Hypothyroidism, unspecified; I25.10 Atherosclerotic heart disease of native coronary artery without angina pectoris; E11.69 Type 2 diabetes mellitus with other specified complication; M86.68 Other chronic osteomyelitis, other site; Z79.4 Long term (current) use of insulin; Z79.02 Long term (current) use of antithrombotics/antiplatelets; Z89.421 Acquired absence of other right toe(s); Z87.891 Personal history of nicotine dependence; Z72.89 Other problems related to lifestyle; Y83.8 Other surgical procedures as the cause of abnormal reaction of the patient, or of later complication, without mention of misadventure at the time of the procedure ==

== ENCOUNTER 2017-08-27 15:03 | Emergency (ER) | payer OTHER ==
[~2017-08-27] VITALS: Ht 177.8 cm; Wt 108.9 kg
[2017-08-27 16:14] LABS: HEMATOCRIT 44.5 % (42.0-52.0); HEMOGLOBIN 14.7 gm/dL (14.0-18.0); MCH 30.9 pg (26.0-34.0); MCV 93.8 fL (80.0-100.0); RBC 4.75 mil/uL (4.50-6.00); RDW 15.5 % (10.5-14.5); WBC 11.1 thou/uL (4.0-11.0)
[2017-08-27 16:43] LABS: CALCIUM 9.9 mg/dL (8.5-10.1); CREATININE 1.4 mg/dL (0.7-1.3); POTASSIUM 4.6 mmol/L (3.5-5.1)
[2017-08-27 17:37] VITALS: BP 170/85
== END 2017-08-27 17:39 | disposition home or self-care (01) ==
LOC: ER 15:03
PROVIDERS: Physician Assistant
DX: S91.104A Unspecified open wound of right lesser toe(s) without damage to nail, initial encounter (principal); I25.10 Atherosclerotic heart disease of native coronary artery without angina pectoris; E03.9 Hypothyroidism, unspecified; E78.5 Hyperlipidemia, unspecified; I48.91 Unspecified atrial fibrillation; E11.9 Type 2 diabetes mellitus without complications; J44.9 Chronic obstructive pulmonary disease, unspecified; I11.0 Hypertensive heart disease with heart failure; I50.9 Heart failure, unspecified; F10.99 Alcohol use, unspecified with unspecified alcohol-induced disorder; Z88.8 Allergy status to other drugs, medicaments and biological substances; Z87.891 Personal history of nicotine dependence; Z86.14 Personal history of Methicillin resistant Staphylococcus aureus infection; X58.XXXA Exposure to other specified factors, initial encounter; Y93.89 Activity, other specified; Y92.89 Other specified places as the place of occurrence of the external cause; Y99.8 Other external cause status

== ENCOUNTER → 2017-08-28 | Outpatient (CLI) | payer OTHER | LOC: HYPER 06:48 | DX: T81.31XD Disruption of external operation (surgical) wound, not elsewhere classified, subsequent encounter (principal); E11.36 Type 2 diabetes mellitus with diabetic cataract; J44.9 Chronic obstructive pulmonary disease, unspecified; I11.0 Hypertensive heart disease with heart failure; I50.9 Heart failure, unspecified; M19.90 Unspecified osteoarthritis, unspecified site; E78.00 Pure hypercholesterolemia, unspecified; E03.9 Hypothyroidism, unspecified; I25.10 Atherosclerotic heart disease of native coronary artery without angina pectoris; E11.69 Type 2 diabetes mellitus with other specified complication; M86.68 Other chronic osteomyelitis, other site; Z89.421 Acquired absence of other right toe(s); Z79.4 Long term (current) use of insulin; Z79.02 Long term (current) use of antithrombotics/antiplatelets; Z85.51 Personal history of malignant neoplasm of bladder; Z87.891 Personal history of nicotine dependence; Z72.89 Other problems related to lifestyle; Y83.8 Other surgical procedures as the cause of abnormal reaction of the patient, or of later complication, without mention of misadventure at the time of the procedure ==

== ENCOUNTER → 2017-09-11 | Outpatient (CLI) | payer OTHER | LOC: HYPER 07:06 | DX: T81.31XD Disruption of external operation (surgical) wound, not elsewhere classified, subsequent encounter (principal); E11.36 Type 2 diabetes mellitus with diabetic cataract; E11.69 Type 2 diabetes mellitus with other specified complication; M86.8X7 Other osteomyelitis, ankle and foot; I11.0 Hypertensive heart disease with heart failure; I50.9 Heart failure, unspecified; I25.10 Atherosclerotic heart disease of native coronary artery without angina pectoris; M19.90 Unspecified osteoarthritis, unspecified site; E78.00 Pure hypercholesterolemia, unspecified; E03.9 Hypothyroidism, unspecified; G47.30 Sleep apnea, unspecified; J44.9 Chronic obstructive pulmonary disease, unspecified; Z89.421 Acquired absence of other right toe(s); Z79.4 Long term (current) use of insulin; Z79.02 Long term (current) use of antithrombotics/antiplatelets; Z85.51 Personal history of malignant neoplasm of bladder; Z87.891 Personal history of nicotine dependence; Y83.8 Other surgical procedures as the cause of abnormal reaction of the patient, or of later complication, without mention of misadventure at the time of the procedure ==

== ENCOUNTER → 2018-03-11 | Outpatient (CLI) | payer OTHER | LOC: HYPER 06:58 | DX: S91.101A Unspecified open wound of right great toe without damage to nail, initial encounter (principal); E11.69 Type 2 diabetes mellitus with other specified complication; M86.8X7 Other osteomyelitis, ankle and foot; E11.36 Type 2 diabetes mellitus with diabetic cataract; I11.0 Hypertensive heart disease with heart failure; I50.9 Heart failure, unspecified; E78.00 Pure hypercholesterolemia, unspecified; E03.9 Hypothyroidism, unspecified; I25.10 Atherosclerotic heart disease of native coronary artery without angina pectoris; M19.90 Unspecified osteoarthritis, unspecified site; M10.9 Gout, unspecified; G47.30 Sleep apnea, unspecified; J44.9 Chronic obstructive pulmonary disease, unspecified; Z79.4 Long term (current) use of insulin; Z85.51 Personal history of malignant neoplasm of bladder; Z87.891 Personal history of nicotine dependence; X58.XXXA Exposure to other specified factors, initial encounter; Y93.89 Activity, other specified; Y92.89 Other specified places as the place of occurrence of the external cause; Y99.8 Other external cause status ==

== ENCOUNTER → 2018-04-04 | Outpatient (CLI) | payer OTHER | LOC: HYPER 03-25 06:59 | DX: E11.622 Type 2 diabetes mellitus with other skin ulcer (principal); L97.821 Non-pressure chronic ulcer of other part of left lower leg limited to breakdown of skin; L97.812 Non-pressure chronic ulcer of other part of right lower leg with fat layer exposed; L84 Corns and callosities; E11.69 Type 2 diabetes mellitus with other specified complication; M86.8X8 Other osteomyelitis, other site; E11.52 Type 2 diabetes mellitus with diabetic peripheral angiopathy with gangrene; I96 Gangrene, not elsewhere classified; E11.36 Type 2 diabetes mellitus with diabetic cataract; E78.00 Pure hypercholesterolemia, unspecified; E03.9 Hypothyroidism, unspecified; I11.0 Hypertensive heart disease with heart failure; I50.9 Heart failure, unspecified; I25.10 Atherosclerotic heart disease of native coronary artery without angina pectoris; J44.9 Chronic obstructive pulmonary disease, unspecified; G47.30 Sleep apnea, unspecified; M19.90 Unspecified osteoarthritis, unspecified site; M10.9 Gout, unspecified; Z85.51 Personal history of malignant neoplasm of bladder; Z89.421 Acquired absence of other right toe(s); Z79.4 Long term (current) use of insulin; Z87.891 Personal history of nicotine dependence ==

== ENCOUNTER → 2018-04-14 | Outpatient (CLI) | payer OTHER | LOC: HYPER 04-11 10:03 | DX: E11.622 Type 2 diabetes mellitus with other skin ulcer (principal); L97.822 Non-pressure chronic ulcer of other part of left lower leg with fat layer exposed; L97.818 Non-pressure chronic ulcer of other part of right lower leg with other specified severity; L84 Corns and callosities; E11.36 Type 2 diabetes mellitus with diabetic cataract; E11.69 Type 2 diabetes mellitus with other specified complication; M86.8X8 Other osteomyelitis, other site; E78.00 Pure hypercholesterolemia, unspecified; E03.9 Hypothyroidism, unspecified; G47.30 Sleep apnea, unspecified; I11.0 Hypertensive heart disease with heart failure; I50.9 Heart failure, unspecified; I25.10 Atherosclerotic heart disease of native coronary artery without angina pectoris; J44.9 Chronic obstructive pulmonary disease, unspecified; M19.90 Unspecified osteoarthritis, unspecified site; M10.9 Gout, unspecified; Z85.51 Personal history of malignant neoplasm of bladder; Z89.421 Acquired absence of other right toe(s); Z79.4 Long term (current) use of insulin; Z87.891 Personal history of nicotine dependence ==

== ENCOUNTER → 2018-05-19 | Outpatient (CLI) | payer OTHER | LOC: HYPER 05-12 14:27 | DX: E11.622 Type 2 diabetes mellitus with other skin ulcer (principal); L97.812 Non-pressure chronic ulcer of other part of right lower leg with fat layer exposed; L84 Corns and callosities; E11.69 Type 2 diabetes mellitus with other specified complication; M86.8X8 Other osteomyelitis, other site; E11.36 Type 2 diabetes mellitus with diabetic cataract; E78.00 Pure hypercholesterolemia, unspecified; E03.9 Hypothyroidism, unspecified; G47.30 Sleep apnea, unspecified; I11.0 Hypertensive heart disease with heart failure; I50.9 Heart failure, unspecified; I25.10 Atherosclerotic heart disease of native coronary artery without angina pectoris; J44.9 Chronic obstructive pulmonary disease, unspecified; M19.90 Unspecified osteoarthritis, unspecified site; M10.9 Gout, unspecified; Z85.51 Personal history of malignant neoplasm of bladder; Z79.4 Long term (current) use of insulin; Z87.891 Personal history of nicotine dependence ==

== ENCOUNTER → 2018-06-11 | Outpatient (CLI) | payer OTHER | LOC: HYPER 07:03 | DX: S91.302A Unspecified open wound, left foot, initial encounter (principal); S91.301A Unspecified open wound, right foot, initial encounter; L84 Corns and callosities; E11.69 Type 2 diabetes mellitus with other specified complication; M86.8X8 Other osteomyelitis, other site; E11.36 Type 2 diabetes mellitus with diabetic cataract; E78.00 Pure hypercholesterolemia, unspecified; E03.9 Hypothyroidism, unspecified; G47.30 Sleep apnea, unspecified; I11.0 Hypertensive heart disease with heart failure; I50.9 Heart failure, unspecified; I25.10 Atherosclerotic heart disease of native coronary artery without angina pectoris; J44.9 Chronic obstructive pulmonary disease, unspecified; M19.90 Unspecified osteoarthritis, unspecified site; M10.9 Gout, unspecified; Z87.891 Personal history of nicotine dependence; Z85.51 Personal history of malignant neoplasm of bladder; Z79.4 Long term (current) use of insulin; X58.XXXA Exposure to other specified factors, initial encounter; Y93.89 Activity, other specified; Y92.89 Other specified places as the place of occurrence of the external cause; Y99.8 Other external cause status ==

== ENCOUNTER 2018-07-04 15:36 | Emergency (ER) | payer OTHER ==
[~2018-07-04] VITALS: Ht 167.6 cm; Wt 108.9 kg
[2018-07-04] MEDS ORDERED: PROAIR HFA8.5 GM INH (16:37)
[2018-07-04 16:38] LABS: ABSOLUTE NEUTROPHILS 7.3 thou/uL (1.4-8.2); BASOPHILS 0.9 % (0.0-2.0); EOSINOPHILS 1.1 % (0.0-3.0); HEMATOCRIT 46.7 % (42.0-52.0); HEMOGLOBIN 15.7 gm/dL (14.0-18.0); LYMPHOCYTES 18.5 % (24.0-44.0); MCH 33.1 pg (26.0-34.0); MCHC 33.6 g/dL (28.0-37.0); MCV 98.5 fL (80.0-100.0); MONOCYTES 6.9 % (1.0-8.0); PLATELET COUNT 216 thou/uL (150-400); POLYS 72.6 % (36.0-66.0); RBC 4.74 mil/uL (4.50-6.00); RDW 14.3 % (10.5-14.5); WBC 10.1 thou/uL (4.0-11.0)
[2018-07-04] MEDS ORDERED: COLACE100 MG PO (16:38)
[2018-07-04] MEDS ORDERED: VITAMINC500 PO (16:38)
[2018-07-04] MEDS ORDERED: FLUNISOLIDE25 ML NASAL (16:40)
[2018-07-04 16:47] LABS: ANION GAP 8 mmol/L (7-16); BUN 19 mg/dL (7-18); CHLORIDE 100 mmol/L (98-107); CO2 31 mmol/L (21-32); CREATININE 1.5 mg/dL (0.7-1.3); GLUCOSE 238 mg/dL (74-106); POTASSIUM 3.8 mmol/L (3.5-5.1); SODIUM 139 mmol/L (136-145)
[2018-07-04 16:56] LABS: TROPONIN-I <0.06 ng/mL (<0.06)
[2018-07-04 18:49] VITALS: BP 135/84
--- NOTE | 2018-07-05 10:46 | EKG ---
[facility] [employer] [place] [address] ELECTROCARDIOGRAM REPORT Name: SPENCERMALOU Room #: DEP Mandeep#: [id number] Admission: 07/04/18 Attend Phys: Discharge: 07/04/18 Date of : 29 Report #: [id number] THIS REPORT FOR: //name// [facility] ED Test Date: 2018-07-04 Test Time: 15:52:38 Pat Name: MALOU SPENCER Department: Room: Gender: Rn Clinical Documentation: : 1930 Requested By: Jagjit Beck Order Number: [id number] MD: Yousif Najera Measurements Intervals Grants Rate: 88 P: RI: QRS: 236 QRSD: 154 T: 78 QT: 436 QTc: 528 Interpretive Statements Atrial fibrillation Occasional premature ventricular or aberrantly conducted supraventricular complexes Nonspecific intraventricular conduction delay Poor R wave progression No previous ECGs available for comparison Electronically Signed On 07-05-2018 10:45:42 [employer] by Yousif Najera [email or web address] <ELECTRONICALLY SIGNED> By: Yousif Najera MD, [facility] 07/05/18 1045 1552 1552 Yousif Najera MD, FACC /EPI
== END 2018-07-04 18:20 | disposition home or self-care (01) ==
LOC: ER 15:36
PROVIDERS: Emergency Medicine
DX: I11.0 Hypertensive heart disease with heart failure (principal); I50.30 Unspecified diastolic (congestive) heart failure; R06.01 Orthopnea; I25.10 Atherosclerotic heart disease of native coronary artery without angina pectoris; G47.30 Sleep apnea, unspecified; E03.9 Hypothyroidism, unspecified; E78.5 Hyperlipidemia, unspecified; E11.9 Type 2 diabetes mellitus without complications; I48.91 Unspecified atrial fibrillation; J44.9 Chronic obstructive pulmonary disease, unspecified; M19.90 Unspecified osteoarthritis, unspecified site; E11.40 Type 2 diabetes mellitus with diabetic neuropathy, unspecified; Z86.14 Personal history of Methicillin resistant Staphylococcus aureus infection

== ENCOUNTER → 2018-10-06 | Outpatient (CLI) | payer OTHER ==
[~2018-10-06] MED LIST changes: +COLACE100 MG PO; +FLUNISOLIDE25 ML NASAL; +PROAIR HFA8.5 GM INH
== END ==
LOC: HYPER 06:53
DX: L84 Corns and callosities (principal); E11.69 Type 2 diabetes mellitus with other specified complication; M86.8X7 Other osteomyelitis, ankle and foot; E11.36 Type 2 diabetes mellitus with diabetic cataract; I11.0 Hypertensive heart disease with heart failure; I50.9 Heart failure, unspecified; M19.90 Unspecified osteoarthritis, unspecified site; I25.10 Atherosclerotic heart disease of native coronary artery without angina pectoris; M10.9 Gout, unspecified; G47.30 Sleep apnea, unspecified; E78.00 Pure hypercholesterolemia, unspecified; E03.9 Hypothyroidism, unspecified; R29.6 Repeated falls; J44.9 Chronic obstructive pulmonary disease, unspecified; Z87.891 Personal history of nicotine dependence; Z79.4 Long term (current) use of insulin; Z85.51 Personal history of malignant neoplasm of bladder

== ENCOUNTER → 2018-10-29 | Outpatient (CLI) | payer OTHER | LOC: HYPER 06:59 | DX: L84 Corns and callosities (principal); E11.69 Type 2 diabetes mellitus with other specified complication; M86.8X8 Other osteomyelitis, other site; E11.36 Type 2 diabetes mellitus with diabetic cataract; E78.00 Pure hypercholesterolemia, unspecified; E03.9 Hypothyroidism, unspecified; G47.30 Sleep apnea, unspecified; I11.0 Hypertensive heart disease with heart failure; I50.9 Heart failure, unspecified; I25.10 Atherosclerotic heart disease of native coronary artery without angina pectoris; J44.9 Chronic obstructive pulmonary disease, unspecified; M19.90 Unspecified osteoarthritis, unspecified site; M10.9 Gout, unspecified; Z85.51 Personal history of malignant neoplasm of bladder; Z79.4 Long term (current) use of insulin; Z87.891 Personal history of nicotine dependence; Z89.422 Acquired absence of other left toe(s) ==

== ENCOUNTER → 2018-11-11 | Outpatient (CLI) | payer OTHER | LOC: MRI 07:35 | DX: M19.072 Primary osteoarthritis, left ankle and foot (principal); M62.572 Muscle wasting and atrophy, not elsewhere classified, left ankle and foot; M25.775 Osteophyte, left foot; L97.529 Non-pressure chronic ulcer of other part of left foot with unspecified severity; E11.621 Type 2 diabetes mellitus with foot ulcer; E11.40 Type 2 diabetes mellitus with diabetic neuropathy, unspecified; I11.0 Hypertensive heart disease with heart failure; I50.9 Heart failure, unspecified; E78.5 Hyperlipidemia, unspecified; J44.9 Chronic obstructive pulmonary disease, unspecified; I25.10 Atherosclerotic heart disease of native coronary artery without angina pectoris; G47.30 Sleep apnea, unspecified; E03.9 Hypothyroidism, unspecified; M19.90 Unspecified osteoarthritis, unspecified site; Z79.4 Long term (current) use of insulin; Z87.891 Personal history of nicotine dependence ==

== ENCOUNTER 2018-11-12 14:37 | Emergency (ER) | payer OTHER ==
[~2018-11-12] VITALS: Ht 175.3 cm; Wt 106.6 kg
[2018-11-12 17:00] VITALS: BP 139/83
== END 2018-11-12 17:14 | disposition home or self-care (01) ==
LOC: ER 14:37
DX: S91.101A Unspecified open wound of right great toe without damage to nail, initial encounter (principal); E11.40 Type 2 diabetes mellitus with diabetic neuropathy, unspecified; I25.10 Atherosclerotic heart disease of native coronary artery without angina pectoris; G47.30 Sleep apnea, unspecified; E03.9 Hypothyroidism, unspecified; E78.5 Hyperlipidemia, unspecified; I48.91 Unspecified atrial fibrillation; J44.9 Chronic obstructive pulmonary disease, unspecified; I11.0 Hypertensive heart disease with heart failure; I50.30 Unspecified diastolic (congestive) heart failure; M19.90 Unspecified osteoarthritis, unspecified site; Z89.422 Acquired absence of other left toe(s); Z86.14 Personal history of Methicillin resistant Staphylococcus aureus infection; Z87.891 Personal history of nicotine dependence; Z79.899 Other long term (current) drug therapy; Z88.8 Allergy status to other drugs, medicaments and biological substances; W22.8XXA Striking against or struck by other objects, initial encounter; Y93.89 Activity, other specified; Y92.89 Other specified places as the place of occurrence of the external cause; Y99.8 Other external cause status

== ENCOUNTER → 2018-11-18 | Outpatient (CLI) | payer OTHER | LOC: HYPER 06:58 | DX: L97.522 Non-pressure chronic ulcer of other part of left foot with fat layer exposed (principal); S90.411D Abrasion, right great toe, subsequent encounter; I25.10 Atherosclerotic heart disease of native coronary artery without angina pectoris; I11.0 Hypertensive heart disease with heart failure; I50.9 Heart failure, unspecified; E11.69 Type 2 diabetes mellitus with other specified complication; M86.8X8 Other osteomyelitis, other site; E11.36 Type 2 diabetes mellitus with diabetic cataract; L84 Corns and callosities; G47.30 Sleep apnea, unspecified; M19.90 Unspecified osteoarthritis, unspecified site; M10.9 Gout, unspecified; E78.00 Pure hypercholesterolemia, unspecified; R29.6 Repeated falls; E03.9 Hypothyroidism, unspecified; J44.9 Chronic obstructive pulmonary disease, unspecified; Z85.51 Personal history of malignant neoplasm of bladder; Z87.891 Personal history of nicotine dependence; Z79.4 Long term (current) use of insulin; X58.XXXD Exposure to other specified factors, subsequent encounter ==

== ENCOUNTER → 2018-12-03 | Outpatient (CLI) | payer OTHER | LOC: HYPER 06:52 | DX: E11.621 Type 2 diabetes mellitus with foot ulcer (principal); L97.512 Non-pressure chronic ulcer of other part of right foot with fat layer exposed; L97.521 Non-pressure chronic ulcer of other part of left foot limited to breakdown of skin; S80.812A Abrasion, left lower leg, initial encounter; L84 Corns and callosities; G47.30 Sleep apnea, unspecified; E11.36 Type 2 diabetes mellitus with diabetic cataract; I11.0 Hypertensive heart disease with heart failure; I50.9 Heart failure, unspecified; M19.90 Unspecified osteoarthritis, unspecified site; M10.9 Gout, unspecified; E78.00 Pure hypercholesterolemia, unspecified; E03.9 Hypothyroidism, unspecified; I25.10 Atherosclerotic heart disease of native coronary artery without angina pectoris; E11.69 Type 2 diabetes mellitus with other specified complication; M86.8X7 Other osteomyelitis, ankle and foot; R29.6 Repeated falls; J44.9 Chronic obstructive pulmonary disease, unspecified; Z79.4 Long term (current) use of insulin; Z87.891 Personal history of nicotine dependence; Z85.51 Personal history of malignant neoplasm of bladder; X58.XXXA Exposure to other specified factors, initial encounter; Y93.89 Activity, other specified; Y92.89 Other specified places as the place of occurrence of the external cause; Y99.8 Other external cause status ==

== ENCOUNTER 2018-12-06 09:45 | Inpatient (IN) | payer OTHER ==
[~2018-12-06] VITALS: Ht 177.8 cm; Wt 103.4 kg
--- NOTE | ~2018-12-06 | O ---
[facility] [place] [place] [address] OPERATIVE REPORT Name: TJMALOU Sophy Room #: 462-P [facility] IN M.R.#: [id number] Admission: 12/06/18 ������������������ Attend Phys: Ilia Villanueva Discharge: ������������������ Date of : 29 Report #: [id number] THIS REPORT FOR: //name// CC: Mark Linares DATE OF SERVICE: 12/09/2018 PREOPERATIVE DIAGNOSIS: Right great toe osteomyelitis. POSTOPERATIVE DIAGNOSIS: Right great toe osteomyelitis. PROCEDURE: Right great toe amputation. SURGEON: Castro Gonzalez MD DIRECTOR APPOINTMENT: Michelle Lemus ANESTHESIA: General. ESTIMATED BLOOD LOSS: Minimal. DRAINS: No drains. TOURNIQUET TIME: 11 minutes. DESCRIPTION OF PROCEDURE: The patient was brought to the operating room where he was placed under general anesthesia. Once under adequate general anesthesia, his right lower extremity was prepped and draped in a sterile manner. The extremity was elevated and tourniquet was placed to 250 mmHg. A fishmouth-type incision was made about the distal phalanx of the great toe. This was dissected sharply down to the bone. The distal interphalangeal joint was then entered and released both medially and laterally with the #15 blade. The plantar tuft was then elevated off of the bone as well and the complete distal phalanx was then removed. The wound was irrigated copiously with normal saline solution and closed with 3-0 nylon for the skin. The wound was dressed with Xeroform, 4 x 4s, and sterile soft compressive dressing was placed. Tourniquet was let down at 11 minutes. Toes were pink and warm with good capillary refill. There were no complications from the procedure. The patient tolerated the procedure well and went to recovery room without incident. ��������������������������������������������� ���������������������������������������� By: ��������������������������������������������� [id number] 0903 Castro Gonzalez MD /nt
[2018-12-06 09:46] VITALS: BP 149/93
[2018-12-06 10:34] LABS: ABSOLUTE NEUTROPHILS 9.3 thou/uL (1.4-8.2); BASOPHILS 0.8 % (0.0-2.0); EOSINOPHILS 1.9 % (0.0-3.0); HEMATOCRIT 46.7 % (42.0-52.0); HEMOGLOBIN 15.2 gm/dL (14.0-18.0); LYMPHOCYTES 12.6 % (24.0-44.0); MCH 31.9 pg (26.0-34.0); MCHC 32.6 g/dL (28.0-37.0); MCV 97.7 fL (80.0-100.0); MONOCYTES 9.3 % (1.0-8.0); PLATELET COUNT 249 thou/uL (150-400); POLYS 75.4 % (36.0-66.0); RBC 4.78 mil/uL (4.50-6.00); RDW 14.7 % (10.5-14.5); WBC 12.3 thou/uL (4.0-11.0)
[2018-12-06 10:37] LABS: CALCIUM 10.1 mg/dL (8.5-10.1); CREATININE 1.9 mg/dL (0.7-1.3); POTASSIUM 4.4 mmol/L (3.5-5.1)
[2018-12-06 13:00] VITALS: BP 161/64; BP 199/84
[2018-12-06 15:00] VITALS: BP 144/85
--- NOTE | 2018-12-06 16:24 | NUR ---
MSG LEFT FOR DR HURT AT [phone] RE PT TAKING NEURONTIN 300MG QID SCHEDULED AND ABLE TO TAKE 1 ADDITIONAL DOSE OF 300MG/DAY PRN; MED LIST UPDATED; AWAITING AUTH FOR CHANGE WHILE INPT
--- NOTE | 2018-12-06 18:40 | NUR ---
REceived pt from the ER, with daughter at the bed side. Admission requirements done, mediczation aligned to home meds since main issue was his gabapentin. POC followed, would dressing done (vangie, nicollix wrap) til [facility] care team and ortho come.
[2018-12-06 19:29] VITALS: BP 168/76
--- NOTE | 2018-12-07 04:36 | NUR ---
Pt. rested quietly at intervals during the night when checked on during frequent rounds. Pt. c/o some tingling in his lower feet and wanted his gabapentin. Gabapentin given as ordered (see emar) with some relief noted. Pt. sounded off bed alarm a few times during the shift. Pt. does not always call out appropriately when needing assistance.
[2018-12-07 07:52] VITALS: BP 133/70
--- NOTE | 2018-12-07 12:48 | NUR ---
Pt was asleep x3 when RD visited. RD talked to RN. RN told RD to let pt sleep. Pt was seen d/t wound consult. Pt was admitted for infected wound. Pt with wound to right great toe that is worsening. Pt hx of DM. PT BG (116-226). Pt is on Insulin. RN told RD to add Ensure TID. RD added Ensure TID. RD will continue to monitor and FU PRN.
[2018-12-07 14:30] VITALS: BP 154/77
--- NOTE | 2018-12-07 17:46 | NUR ---
PT VITAL SIGNS STABLE THROUGHOUT SHIFT. FALL PRECAUTIONS IN PLACE, HOWEVER PT IS UNCOOPERATIVE WITH ALLOWING STAFF TO ASSIST TO BATHROOM, I.E. DOES NOT CALL OR WAIT FOR STAFF. THIS MORNING PT BECAME ABUSINVE WITH NURSE ASSISTING HIM TO BATH, SECURITY CALLED AND AFTER SPEAKING WITH THEM PT WAS MORE COOPERATIVE. DRESSING CHANGED, NO NEW SKIN ISSUES. PAIN ADDRESSED WITH MEDICATION, PT REQUESTED TRAMADOL AND ADDITIONAL HYDROCODONE. APPETITE WAS GOOD (75-100% OF MEALS). FAMILY IN TO VISIT.
[2018-12-07 20:55] VITALS: BP 151/69
[2018-12-08 04:40] VITALS: BP 151/78
[2018-12-08 05:43] LABS: HEMATOCRIT 46.5 % (42.0-52.0); HEMOGLOBIN 15.2 gm/dL (14.0-18.0); MCH 32.1 pg (26.0-34.0); MCHC 32.6 g/dL (28.0-37.0); MCV 98.4 fL (80.0-100.0); RBC 4.73 mil/uL (4.50-6.00); RDW 14.6 % (10.5-14.5); WBC 11.5 thou/uL (4.0-11.0)
[2018-12-08 05:58] LABS: CALCIUM 9.1 mg/dL (8.5-10.1); CREATININE 1.6 mg/dL (0.7-1.3); POTASSIUM 4.7 mmol/L (3.5-5.1)
--- NOTE | 2018-12-08 07:36 | NUR ---
ASSUMED CARE OF PT AT 1900HRS. PT AOX4 AND CALLS FOR HELP NEEDED. RIGHT FOOT DRESSING CHANGED. NO OTHER S/S OF ACTE DISTRESS. PT WAS ABLE TO SLEEP PART OF THE SHIFT. WILL CONTINUE TO MONITOR.
[2018-12-08 08:00] VITALS: BP 189/99
[2018-12-08 08:48] VITALS: BP 130/57
--- NOTE | 2018-12-08 11:24 | NUR ---
Received awake on bed. Due medications given as prescribed- able to swallow tablets whole w/o difficulty. On blood sugar monitoring, With SS and Long actiing insulin- given as prescribed. Modified pts diet from regular to DM carb controlled- Dr Yanes informed. Falls risk- falls bundle in place. Wit h Bp of 189/99 this AM, BP meds given, Bp rechecked, went down to 130/57. Pt's daughter called this AM- update given. With Wound at R foot- a/w ortho input if for sx. A+O 3-4. On room air during daytime and CPAP at night.
--- NOTE | 2018-12-08 14:29 | HC ---
[facility] [place] [address] CONSULTATION Name: TJMALOU Sophy Room #: 462-P ADM IN M.R.#: [id number] Admission: 12/06/18 ������������������ Attend Phys: Ilia Villanueva Discharge: ������������������ Date of : 29 Report #: [id number] THIS REPORT FOR: //name// CC: Mark Villanueva Chicho Linares DATE OF SERVICE: 12/08/2018 WOUND CARE CONSULTATION PERSONAL PHYSICIAN: Mark Montes De Oca MD. CHIEF COMPLAINT: Right great toe infection. HISTORY OF PRESENT ILLNESS: This is an 88-year-old white male with longstanding history of diabetes who I have followed in the wound clinic for chronic ulceration to his right great toe with recent exposure of the distal tuft of bone. This past week in clinic, the patient had a piece of the distal tuft of the bone rongeured down to in hopes that we could have granulation tissue form over the top of this area. At that time, the wound did not appear to be infected overtly. The patient was started empirically on doxycycline. The patient at that time stated he would prefer not to have any amputation if at all possible, which is why the bone was rongeured down instead of being referred for an amputation. The patient states, however, the past couple of days since the procedure, the toe has gotten more red and swollen. He came to the Emergency Department, was admitted for cellulitis of the great toe and orthopedic evaluation. The patient states that he has had no fevers or chills. The patient states he does have essentially no sensation in his toes itself. The patient states he has increased amount of yellowish drainage coming from the toe itself. The patient denies any other associated wounds at this time. PAST MEDICAL HISTORY: Significant for diabetes mellitus, coronary artery disease, hypertension, hyperlipidemia, atrial fibrillation, COPD, congestive heart failure. PAST SURGICAL HISTORY: Previous inguinal hernia repair, bilateral second toe amputations, MRSA in his wounds. CURRENT MEDICATIONS: Multiple including the doxycycline and Eliquis, I reviewed the patient's list. DRUG ALLERGIES: Multiple. Please see the patient's list. SOCIAL HISTORY: The patient resides at home, has a history of smoking cigarettes in the past, but quit years ago. Denies alcohol use. [facility] [address] [place] [address] CONSULTATION Name: MALOU SPENCER Room #: 462-P [facility] IN M.R.#: [id number] Admission: 12/06/18 ������������������ Attend Phys: Ilia Villanueva Discharge: ������������������ Date of : 29 Report #: [id number] FAMILY HISTORY: Not pertinent to current medical condition. REVIEW OF SYSTEMS: CONSTITUTIONAL: The patient denies fevers or chills. NEUROLOGIC: The patient denies numbness, tingling, weakness in arms or legs. EYES: No complaints. ENT: No complaints. CARDIAC: The patient denies chest pain, but does have chronic lower extremity edema. RESPIRATORY: The patient denies shortness breath, cough or wheezes. GASTROINTESTINAL: The patient denies nausea, vomiting or abdominal pain. GENITOURINARY: The patient denies urgency or frequency. MUSCULOSKELETAL: No complaints. SKIN: There is an open wound on the right great toe in the distal aspect. PHYSICAL EXAMINATION: VITAL SIGNS: Temperature 36.5, pulse 65, respirations 20, BP 189/99. GENERAL: Alert and oriented x 3, pleasant white male who is in no acute distress. HEENT: Normocephalic, atraumatic. Mucous membranes are moist. Pupils are round. Sclerae white. NECK: Supple, without JVD. LUNGS: Clear. HEART: Irregularly irregular. ABDOMEN: Obese, soft, otherwise nontender. EXTREMITIES: The patient moves all extremities without difficulty. There is a trace to 1+ edema in bilateral lower extremities. The left pretibial region has two superficial venous ulcers, which are not infected. On the right great toe, there is an open wound with eschar surrounding it, somewhat macerated. There is palpable tip of the bone. There is serosanguineous drainage noted with a small odor, but no signs of any purulence. The toe itself is mildly swollen and erythematous. Distal pulses are 1+ dorsalis pedis and posterior tibial. Rest of the foot was without ulceration. NEUROLOGIC: Cranial nerves 2 through 12 are grossly intact. Motor and sensory grossly intact. LABORATORY DATA: White count 11.5, hemoglobin 15.2. Imaging of the right foot shows chronic degenerative changes as well as soft tissue wound over the distal great toe; however, they do not feel there is any obvious osteomyelitis in the toe itself. WOUND CARE COURSE: I talked to the patient and his daughter. At this time, Orthopedics will see the patient about partial amputation of the right great toe or possible amputation of the entire toe itself per Orthopedics recommendations. We will continue with IV antibiotics, which he is receiving vancomycin this [facility] [address] [place] [address] CONSULTATION Name: MALOU SPENCER Room #: 462-P ADM IN M.R.#: [id number] Admission: 12/06/18 ������������������ Attend Phys: Ilia Villanueva Discharge: ������������������ Date of : 29 Report #: [id number] time. IMPRESSION: 1. 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 2. Diabetes mellitus. 3. History of coronary artery disease. PLAN: Once again, Orthopedics will be consulted for possible amputation. We will continue to follow the patient for wound care. ��������������������������������������������� <ELECTRONICALLY SIGNED> ���������������������������������������� By: Chicho Linares MD ��������������������������������������������� 12/08/18 1429 1227 1343 Chicho Linares MD /nt
[2018-12-08 15:00] VITALS: BP 136/77
--- NOTE | 2018-12-08 15:16 | NUR ---
PT ADMITTED RELATED TO INFECTED WOUND, OSTEO. CM REVIEWED CHART AND SPOKE WITH CARE TEAM. CM MET WITH PT AT BEDSIDE THIS DAY. PT IS A&O X4. CM ROLE INTRODUCED. PT INDICATED HE LIVES ALONE IN A HOUSE WITH 3 STEPS TO ENTER AND A FULL FLIGHT OF 14 TO BASEMENT LAUNDRY ONCE A WEEK. PT INDICATED HE HAD USED A CANE, FWW AND A CPAP PRIOR TO ADMISSION. PT INDICATED HE PLANS TO RETURN HOME HOME ONCE MEDICALLY STABLE. CM TO FOLLOW INDICATED WITH DC PLANNING.
[2018-12-08 20:29] VITALS: BP 150/75
--- NOTE | 2018-12-09 03:06 | NUR ---
ASSUMED CARE OF PT AT 1900HRS. PT IS AOX4 AND USES CALL LIGHT APPROPRIATELY. FALL PRECAUTION IN PLACE. PT IS NPO FROM [place] PENDING PROCEDURE IN THE AM. NO OTHER S/S OF ACUTE DISTRESS. WILL CONTINUE TO MONITOR.
[2018-12-09 04:24] VITALS: BP 118/68
[2018-12-09 09:39] VITALS: BP 139/78
--- NOTE | 2018-12-09 11:07 | NUR ---
WOUND CONSULT; ROUNDING WITH DR REINOSO AND CANDY JUNIOR ENGINEER. THE PATIENT IS WELL KNOW TO DR REINOSO. DR REINOSO ASSESSED THE WOUNDS. RECOMMENDATIONS; LEFT LEG; BOARDERED FOAM RIGHT GREAT TOE; XEROFORM, SECURE WITH KERLIX. DISCUSSED WITH RN
[2018-12-09 14:25] VITALS: BP 113/60
--- NOTE | 2018-12-09 15:06 | NUR ---
Discharge Planning: dp sent referral to L[facility] of [place] and [facility]. DP will contact all 3 facilities to make sure they received referrals.
--- NOTE | 2018-12-09 15:17 | NUR ---
CM MET WITH PT AND FAMILY AT BEDSIDE THIS DAY. PT'S FAMILY INDICATED THEY WERE INTERESTED IN PT GOING FOR A POST ACUTE CARE STAY FOR REHAB AND CONTINUED WOUND CARE. CM PROVIDED SNF LIST AND THEY ASKED THAT REFERRALS BE SENT TO [facility], AND [facility]. REFERRALS WERE SENTL CN TO FOLLOW INDICATED WITH DC PLANNING.
--- NOTE | 2018-12-09 20:18 | NUR ---
Pt on room this AM, already went down to OR for procedure. Pt came back to his room from PACU, report received. Pt still groggy upon coming back, vital signs checked and let him rest; Visited by relatives today. Pt instructed he may have clear liquids, no problem swallowing initally; tolerated clear liquid for lunch; pt's diet progressed to regular- carb controlled for dinner. Due medications not taken this AM given after lunch as prescribed. On blood sugar monitoring- taken and recorded accordingly; w/ insulin prescribed. Pt able to walk to the toilet using cane and gait belt. Has been prescribed with brace for his foot but pt has been refusing to wear it. Pt dressing C/D/I. Ice packs place on surgical wounds. On room air during daytime and CPAP at night- RT aware. With consult to Dr Shaw- US called in. Vital signs stable the whole shift.
[2018-12-09 20:26] VITALS: BP 135/66
[2018-12-10 04:39] LABS: HEMATOCRIT 45.6 % (42.0-52.0); HEMOGLOBIN 14.8 gm/dL (14.0-18.0); MCH 31.8 pg (26.0-34.0); MCHC 32.5 g/dL (28.0-37.0); MCV 97.8 fL (80.0-100.0); RBC 4.66 mil/uL (4.50-6.00); RDW 14.7 % (10.5-14.5); WBC 13.3 thou/uL (4.0-11.0)
[2018-12-10 04:58] LABS: ALBUMIN 3.1 g/dL (3.4-5.0); CALCIUM 9.1 mg/dL (8.5-10.1); CREATININE 1.6 mg/dL (0.7-1.3); POTASSIUM 5.3 mmol/L (3.5-5.1); TOTAL BILIRUBIN 0.4 mg/dL (<0.1-1.0); TOTAL PROTEIN 6.7 g/dL (6.4-8.2)
[2018-12-10 05:12] VITALS: BP 138/62
--- NOTE | 2018-12-10 06:36 | NUR ---
Assumed care at 1845. Pt resting in bed. AOX4. VSS. Has been able to ambulate to the bathroom with gait belt and walker. Dressing CDI. No identified needs at the moment. Will continue to monitor.
[2018-12-10 08:03] VITALS: BP 151/72
[2018-12-10 14:23] VITALS: BP 141/59
--- NOTE | 2018-12-10 14:37 | NUR ---
DISCHARGE PLANNING. POST ACUTE RECOMMENDED AT DISCHARGE. CLINICAL INFORMATION FAXED TO JOA[facility] VER[facility] OF [facility], VERIFIED RECEIVED. FOLLOWING TO ASSIST.
--- NOTE | 2018-12-10 14:53 | NUR ---
PT STABLE THROUGHOUT SHIFT. PT COOPERATIVE WITH POC. NO C/O PAIN, N/V OR SOA. FALL PROTOCOLS IN PLACE. NO NEW SKIN ISSUES. PT RESTING COMFORTABLY, FAMILY AT BEDSIDE.
--- NOTE | 2018-12-10 17:17 | NUR ---
[facility] CAN ACCEPT PT. THEY HAVE SUBMITTED FOR AUTH. ANTICPATE DC TOMORROW. CM NOTIFIED PT AND HIS DTR/DPOA. CM TO FOLLOW INDICATED WITH DC PLANNING.
[2018-12-10 19:29] VITALS: BP 160/79
[2018-12-11 03:50] VITALS: BP 148/64
--- NOTE | 2018-12-11 05:30 | NUR ---
ASSUMED CARE OF PT AT 1900HRS. PT IS AOX4 AND CALLS FOR HELP NEEDED. PT WAS ABLE TO GET COMFORTABLE AND SLEEP THIS SHIFT. NO OTHER S/S OF ACUTE DISTRESS. WILL CONTINUE TO MONITOR.
[2018-12-11 08:15] VITALS: BP 123/55
[2018-12-11] MEDS ORDERED: CLEOCIN HCL150 MG PO (12:47)
--- NOTE | 2018-12-11 15:08 | NUR ---
PT VITAL SIGNS STABLE THROUGHOUT SHIFT. PT COMPLIANT WITH POC, FALL PRECAUTIONS IN PLACE. BANDAGE CHANGED BY WOUND CARE TODAY. AWAITNING DC TO [place]. NO C/O PAIN, [place] OR SOA. FAMILY AT BEDSIDE.
[2018-12-11 16:31] VITALS: BP 123/55
--- NOTE | 2018-12-11 16:36 | NUR ---
PT'S FAMILY MEMBER ASKED WHEN PT HAS LAST PAIN MED. WHEN NURSE EXPLAINED THAT HE HAD NOT REPORTED PAIN OR REQUESTED MEDICATION SINCE SURGERY BOTH PT AND FAMILY MEMBER BECAME VERY AGITATED AND UPSET. TRIED TO EXPLAIN THAT PAIN MEDICATION IS GIVEN PRN WHEN PAIN IS REPORTED HOWEVER BOTH KEPT INSISTING "HE TAKES IT AT HOME 4 TIMES A DAY". PT STATES HE IS NOW IN PAIN, GAVE HYDROCODONE.
--- NOTE | 2018-12-11 16:56 | NUR ---
[facility] DENIED ADMISSION TO [facility]. CM NOTIFED PT AND FAMILY AND THEY ASKED TO GO HOME WITH [facility]. REFERRAL SENT. CM CALLED TO CONFIRM THEY COULD ACCEPT AND THEY HADN'T RECIEVED REFERRAL YET. CM TO CONFIRM. PT HAS ALL RECOMMENDED DME. NO OTHER CM INTERVETION INDICATED. CASE CLOSED.
--- NOTE | 2018-12-12 12:06 | PATH ---
[facility] [address] [place] [address] PATHOLOGY RPT PROCEDURE Name: VAZQUEZMALOU Room #: 462-P DIS IN M.R.#: [id number] ������������������ Admission: 12/06/18 ������������������ Date of : 29 Discharge: 12/11/18 Report #: [id number] Path Case #: [id number] [facility] Accession Number: [id number] . 01 Material submitted: . toe - RIGHT GREAT TOE. Modifiers: right, great . 01 Clinical history: . Infection . 02 Diagnosis: Toe, right great toe, amputation: - Skin and subcutaneous tissue as well as bone showing marked acute inflammation consistent with an acute osteomyelitis. - Bone margin viable and unremarkable. . (IUV:mml; 12/11/2018) QLM/12/11/2018 . 02 Electronically signed: . Eva Cárdenas MD, Pathologist NPI- [id number] . 01 Gross description: . The specimen is received in formalin, labeled "Malou Vazquez, right great toe", is a distal portion of a disarticulated digit (DIP) measuring 2.8 cm from the proximal skin resection margin to distal tip and up to 3.2 cm in width. Extending above the proximal skin resection margin is a portion of bone measuring 0.7 cm in length by 1.0 x 0.4 cm. There is a 1.7 x 1.5 cm ochoa-white, firm, focally hemorrhagic lesion on the distal tip. This lesion is 2.0 cm from the dorsal skin resection margin (inked blue) and 0.5 cm from the plantar skin resection margin (inked green) and the bone margins inked black. The skin margins, underlying soft tissue and bone appear viable. The digit is longitudinally sectioned to reveal a necrotic cut surface for the lesion that possibly extends to the bone. A longitudinal section from proximal bone margin to distal tip, (bisected) and is a submitted in A1-A2 after decalcification. ([facility]; 12/09/2018) [facility] . 02 Pathologist provided ICD-10: M86.171 . 02 CPT . 016030, 220808 Specimen Comment: A courtesy copy of this report has been sent to Specimen Comment: [phone], , . Specimen Comment: Report sent to ,DR HURT / [place] [address] PATHOLOGY RPT PROCEDURE Name: MALOU VAZQUEZ Room #: 462-P DIS IN M.R.#: [id number] ������������������ Admission: 12/06/18 ������������������ Date of : 29 Discharge: 12/11/18 Report #: [id number] Path Case #: [id number] Performed at: 01 [facility] [place] [address], [place], [place] [id number] MD Espinoza Luz MD Phone: [phone] Performed at: [address] [id number] MD Eva Cárdenas MD Phone: [phone]
== END 2018-12-11 17:21 | disposition home health service (06) | DRG 853 ==
LOC: ER 09:45 → EROBS 12:41 → 4W 12:41 → ENTRNSPT 12-11 17:01 → 4W 12-11 17:21
PROVIDERS: Hospitalist; Nurse Practitioner Family; Orthopaedic Surgery Foot and Ankle Surgery; ADMIT Hospitalist
PROC: 0Y6P0Z3 Detachment at Right 1st Toe, Low, Open Approach (ICD-10-PCS; principal; 2018-12-09)
DX: A41.9 Sepsis, unspecified organism (principal); N17.0 Acute kidney failure with tubular necrosis; I50.30 Unspecified diastolic (congestive) heart failure; M86.8X8 Other osteomyelitis, other site; I13.0 Hypertensive heart and chronic kidney disease with heart failure and stage 1 through stage 4 chronic kidney disease, or unspecified chronic kidney disease; N18.4 Chronic kidney disease, stage 4 (severe); E11.69 Type 2 diabetes mellitus with other specified complication; E11.621 Type 2 diabetes mellitus with foot ulcer; I25.10 Atherosclerotic heart disease of native coronary artery without angina pectoris; E03.9 Hypothyroidism, unspecified; E78.5 Hyperlipidemia, unspecified; I48.91 Unspecified atrial fibrillation; J44.9 Chronic obstructive pulmonary disease, unspecified; M19.90 Unspecified osteoarthritis, unspecified site; E11.40 Type 2 diabetes mellitus with diabetic neuropathy, unspecified; E11.22 Type 2 diabetes mellitus with diabetic chronic kidney disease; I27.20 Pulmonary hypertension, unspecified; L97.519 Non-pressure chronic ulcer of other part of right foot with unspecified severity; Z60.2 Problems related to living alone; I87.8 Other specified disorders of veins; F03.90 Unspecified dementia, unspecified severity, without behavioral disturbance, psychotic disturbance, mood disturbance, and anxiety; Z89.422 Acquired absence of other left toe(s); Z79.4 Long term (current) use of insulin; Z88.8 Allergy status to other drugs, medicaments and biological substances; Z87.891 Personal history of nicotine dependence; Z85.51 Personal history of malignant neoplasm of bladder; Z79.899 Other long term (current) drug therapy
CPT/HCPCS: 10040; 50010; 50101; 50386; 50951; 56527; 57091; 57179; 62110; 62900; 70005

== ENCOUNTER 2018-12-19 11:48 | Inpatient (IN) | payer OTHER ==
[~2018-12-19] VITALS: Ht 177.8 cm; Wt 109.4 kg
[~2018-12-19 11:48] MED LIST changes: +CLEOCIN HCL150 MG PO
[2018-12-19] MEDS ORDERED: NORCO 5-325 TA1 EAC1 (14:39)
--- NOTE | 2018-12-19 15:05 | NUR ---
PT ARRIVED ON UNIT FROM PHYSICIAN OFFICE. ADMISSION HX, EDUCATION AND ASSESSMENT COMPLETE. MED REC COMPLETE. PT RESTING.
[2018-12-19 19:05] VITALS: BP 91/34
[2018-12-20] VITALS (9 sets, daily range): BP systolic 118–154; BP diastolic 55–72
--- NOTE | 2018-12-20 04:42 | NUR ---
ASSUMED CARE AROUND 1900. AXOX3. KEPT NPO FOR PROCEDURE IN AM. NO S/S ACUTE DISTRESS NOTED OR REPORTED AT THIS TIME. WILL CONT TO MONITOR FOR ANY CHANGES IN CONDITION.
[2018-12-20 11:16] LABS: ABSOLUTE NEUTROPHILS 9.8 thou/uL (1.4-8.2); EOSINOPHILS 2.5 % (0.0-3.0); HEMATOCRIT 46.4 % (42.0-52.0); HEMOGLOBIN 15.2 gm/dL (14.0-18.0); LYMPHOCYTES 8.3 % (24.0-44.0); MCHC 32.8 g/dL (28.0-37.0); MCV 97.6 fL (80.0-100.0); MONOCYTES 8.6 % (1.0-8.0); PLATELET COUNT 273 thou/uL (150-400); POLYS 79.6 % (36.0-66.0); RBC 4.76 mil/uL (4.50-6.00); RDW 14.1 % (10.5-14.5); WBC 12.4 thou/uL (4.0-11.0)
[2018-12-20 11:31] LABS: ALBUMIN 2.9 g/dL (3.4-5.0); CALCIUM 9.3 mg/dL (8.5-10.1); CREATININE 1.8 mg/dL (0.7-1.3); POTASSIUM 5.2 mmol/L (3.5-5.1); TOTAL BILIRUBIN 0.4 mg/dL (<0.1-1.0); TOTAL PROTEIN 7.4 g/dL (6.4-8.2)
--- NOTE | 2018-12-20 17:37 | NUR ---
PT STABLE THROUGHOUT SHIFT. PT HAD FIRST RAY AMPUTATION THIS MORNING WHICH HE TOLERATED WELL. NO C/O SOA OR N/V, PAIN ADDRESSED WITH PO PAIN MEDS. FALLS PRECAUTIONS IN PLACE. PT WAS FITTED FOR "HEEL BEARING" BOOT, IT WAS DELIVERED AND PT IS ABLE TO AMBULATE WELL WITH IT. FAMILY AT BEDSIDE.
--- NOTE | 2018-12-21 03:31 | NUR ---
PT SOMEWHAT RESTLESS BETWEEN EPISODES OF SLEEP. ATTEMPT TO GET OUT OF BED W/O ASSISTANCE. CONFUSED AND REFUSES TO BELIEVE HE IS IN THE HOSPITAL. INSISTED ON CALLING HIS DAUGHTER AT 0130. GOT HIM CONNECTED. DAUGHTER CALLED AFTER CALL AND ACKNOWLEDGED THAT HE HAS HAD THESE EPISODES IN THE PAST. BELIEVES IT IS BECAUSE HE IS CURRENTLY OFF [facility] MEDS. PLANS TO VISIT IN THE AM. NO C/O PAIN THROIUGH THE NIGHT. UP AT BS TO URINATE SEVERAL TIMES.
[2018-12-21 04:40] VITALS: BP 170/77
[2018-12-21 04:42] LABS: HEMATOCRIT 44.5 % (42.0-52.0); HEMOGLOBIN 14.4 gm/dL (14.0-18.0)
[2018-12-21 04:45] LABS: POTASSIUM 5.5 mmol/L (3.5-5.1)
[2018-12-21 05:29] LABS: CALCIUM 9.4 mg/dL (8.5-10.1); CREATININE 1.7 mg/dL (0.7-1.3); POTASSIUM 5.6 mmol/L (3.5-5.1)
--- NOTE | 2018-12-21 07:30 | HC ---
[facility] [place] [address] [place] [address] CONSULTATION Name: MALOU SPENCER Room #: 462-P ADM IN M.R.#: [id number] Admission: 12/19/18 ������������������ Attend Phys: Castro Gonzalez MD Discharge: ������������������ Date of : 29 Report #: [id number] THIS REPORT FOR: //name// CC: Mark Montes De Oca MD FAM unknown Castro Gonzalez DATE OF SERVICE: 12/20/2018 ATTENDING PHYSICIAN: Castro Gonzalez MD. REASON FOR CONSULTATION: Ischemic foul smelling right big toe amputation site. HISTORY OF PRESENT ILLNESS: The patient is an 88-year-old white man who had a partial amputation of the right big toe on 12/09/2018 and discharged home on oral Cleocin that was completed yesterday. The patient visited with orthopedic surgeon yesterday and was advised needed to be readmitted to the hospital for possible right amputation of right big toe. PAST MEDICAL HISTORY: COPD. Chronic atrial fibrillation. Obstructive sleep apnea, requiring CPAP. Coronary artery disease. Gout. Diabetes mellitus. Stasis dermatitis, chronic venous insufficiency, lower extremities. Hypertension. Dyslipidemia. DRUG ALLERGIES: DILTIAZEM, FLUTICASONE, SOLU-MEDROL, FORMOTEROL, PIOGLITAZONE, TIOTROPIUM, GEMFIBROZIL, SIMVASTATIN, BUDESONIDE, ACARBOSE, VALDECOXIB. For side effects allergic reactions, see allergy medication list in medical records. MEDICATIONS: The patient is currently on treatment with losartan 50 mg p.o. daily, levothyroxine 175 mcg p.o. daily, half normal saline with 20 mEq potassium chloride at 1000 mL per 10 hours, metoprolol 50 p.o. b.i.d., gabapentin 300 mg q.i.d., vancomycin 1500 mg IV daily, insulin lispro per sliding scale, p.r.n. hydrocodone, p.r.n. glucose glucagon. SOCIAL HISTORY: See H and P, old records. FAMILY HISTORY: See H and P, old records. REVIEW OF SYSTEMS: See H and P and as above. PHYSICAL EXAMINATION: GENERAL: Elderly, overweight dyspneic man. VITAL SIGNS: Temperature 97.5, pulse 63, respirations 18, BP 146/63, height 5 feet 10 inches, weight 241 pounds. O2 saturation is 98% on 2 liters oxygen nasal cannula. HEENMT: Arcus cornealis, right greater than left. Mouth: No thrush. No hairy [facility] [address] [place] [address] CONSULTATION Name: MALOU SPENCER Room #: 462-P [facility] IN .R.#: [id number] Admission: 12/19/18 ������������������ Attend Phys: Castro Gonzalez MD Discharge: ������������������ Date of : 29 Report #: [id number] leukoplakia. NECK: Supple. LUNGS: Crackles both bases, right greater than left. HEART: S1, S2. No masses or megaly. ABDOMEN: With umbilical hernia readily visible and diastasis recti when the patient attempts to sit up. ABDOMEN: Large, obese with no palpable masses or megaly. GENITALIA AND RECTAL: Deferred. EXTREMITIES: Reveal stasis dermatitis both legs with pretibial edema, particularly in the right leg. Remote amputation, right second toe and left second toe. Recent amputation, right big toe with ischemic foul smelling odor. Actually, the wound is black. LABORATORY DATA: Blood sugar of 202 is all that is available. We will obtain a full laboratory data again. Note is made that the BUN and creatinine were elevated on 12/10/2018 at 43 and 1.6 mg/dL. The NT-proBNP was elevated on 11/22/2018 and 07/04/2018 at 9471. The patient had leukocytosis of 13,300 on 12/10/2018. MICROBIOLOGY DATA: Culture of the toe on 12/06/2018 revealed Enterobacter cloacae, Staphylococcus aureus and Enterococcus faecalis. The Enterobacter cloacae was sensitive to cefepime, ciprofloxacin, meropenem. RADIOLOGY EVALUATION: An x-ray of the right foot on 12/06/2018 revealed no acute fracture, chronic degenerative changes involving first metatarsophalangeal joint. MRI of the foot on 11/11/2018 revealed osteoarthritis first metatarsophalangeal joint. No evidence of a sesamoiditis. ASSESSMENT: 1. Ischemic right first toe partial amputation wound. 2. Suspect peripheral vascular disease. 3. Stasis dermatitis, lower extremities secondary to venous insufficiency. 4. Congestive heart failure. 5. Chronic obstructive pulmonary disease. 6. Chronic atrial fibrillation. 7. Chronic kidney disease. SUGGESTIONS: Recommend continue vancomycin. May need to adjust dose for chronic renal insufficiency. We will add cefepime for Enterobacter infection previously. We will obtain chest x-ray. May need Cardiology consultation. [address] [place] [address] CONSULTATION Name: MALOU SPENCER Room #: 462-P [facility] IN M.R.#: [id number] Admission: 12/19/18 ������������������ Attend Phys: Castro Gonzalez MD Discharge: ������������������ Date of : 29 Report #: [id number] Gonzalez, thank you for requesting my suggestions in the care of your patient. ��������������������������������������������� <ELECTRONICALLY SIGNED> ���������������������������������������� By: Ghanshyam Harden MD ��������������������������������������������� 12/21/18 0730 0813 1304 Ghanshyam Harden MD /nt
--- NOTE | 2018-12-21 15:27 | NUR ---
PT VS STABLE THROUGHOUT SHIFT WITH EXCEPTION OF O2 SAT. PT WAS UP TO CHAIR THIS A.M., HOWEVER HE DID NOT HAVE CPAP OR NC AND O2 SAT WAS IN LOW 80'S. APPLIED NC AND 4 L'S, SAT LEEANN TO MID 90'S, TURNED DOWN TO 2 LITERS. PT STABLE SINCE THEN. PT C/O PAIN, ADMINISTERED MEDICATION. FAMILY CONTINUES TO INSIS BE GIVEN HYDROCODNE Q4 HOURS REGARDLESS OF PAIN SCORE "THAT IS WHAT HE TAKES AT HOME PER HIS PCP". EXPLAINED AGAIN THAT IN HOSPITAL PATIENTS ARE TYPICALLY GIVEN MEDICATION WHEN THEY ARE ACTIVELY EXPERIENCING PAIN. WORKED WITH IS WITH PT. PT ABLE TO AMBLATE TO BATHROOM WITH SHOE (WALKER AND GAIT BELT). PT RESTING IN CHAIR, WILL CONTINUE TO MONITOR.
[2018-12-21 19:43] VITALS: BP 143/62
--- NOTE | 2018-12-22 03:27 | NUR ---
ASSUMED CARE AROUND 1900. AXOX3. RLE SURGICAL DRESSING CDI WITH MIYA WRAP. NO S/S ACUTE DISTRESS NOTED OR REPORTED AT THIA TIME. WILL CONT TO MONITOR FOR ANY CHANGES IN CONDITION.
[2018-12-22 03:52] VITALS: BP 129/59
[2018-12-22 08:00] VITALS: BP 140/68
--- NOTE | 2018-12-22 10:47 | NUR ---
Nutrition: pt admitted with right first ray amputation for non healing wound. Stable weights recently. Good appetite, eats most of meals. Encouraged adequate protein sources. BG 197-217, on SSI. 1800 harvinder carb controlled diet. Had some complaints regarding care which have been passed along to appropriate disciplines and are being addressed. Offer glucerna daily. Low nutrition risk.
--- NOTE | 2018-12-22 12:07 | NUR ---
chart review, pt up in room with daughter elis guzman ok with talking with daughter while he eats lunch. intro dcp, transition of care, and skilled " he lives alone, 2 step porch then 1 step into house , home o2, cpap, insulin (he has diff seeing but does his own insulin, wish could get syringes already drawled up so then could just give it to him self. pcp dr rosalia faustin told him he should not be driving anymore. has nebulizer that he not using like he should. hh in past, ok to use [facility] if needed. ok to send referral to same 3 places at as time, he needs rehab not that had to have 2nd surgery. [facility] and [facility]."/ron. referral to be sent for skilled rehab and will need auth from [facility].
--- NOTE | 2018-12-22 14:38 | O ---
[facility] [place] [address] [place] [address] OPERATIVE REPORT Name: TJMALOU Sophy Room #: 462-P ADM IN M.R.#: [id number] Admission: 12/19/18 ������������������ Attend Phys: Castro Gonzalez MD Discharge: ������������������ Date of : 29 Report #: [id number] THIS REPORT FOR: //name// CC: FAM unknown Castro Gonzalez DATE OF SERVICE: 12/20/2018 PREOPERATIVE DIAGNOSIS: Right foot nonhealing wound, status post right great toe amputation. POSTOPERATIVE DIAGNOSIS: Right foot nonhealing wound, status post right great toe amputation. PROCEDURE: Right foot first ray amputation. SURGEON: Castro Gonzalez M.D. BRANCH SALES AND SERVICE REPRESENTATIVE: None. ANESTHESIA: General. ESTIMATED BLOOD LOSS: Minimal. FLUIDS: One Hemovac drain was placed to the wound. COMPLICATIONS: There were no complications. TOURNIQUET TIME: 25 minutes. DESCRIPTION OF PROCEDURE: The patient was brought to the operating room where he was placed under general anesthesia. Once under adequate general anesthesia, his right lower extremity was prepped and draped in a sterile manner. The extremity was elevated and tourniquet placed to 300 mmHg. A fishmouth incision was then made about the metatarsophalangeal joint of the great toe. This was dissected sharply down to the bone and the skin flaps were then elevated directly off of the bone, exposing the first metatarsal. A sagittal saw was then used to transect the bone. A knife was used to sharply remove any soft tissue from the bone and the ray along with the remainder of the toe were then subsequently completely amputated. The wound was irrigated copiously. The sesamoids were removed with a rongeur and a knife. The wound was irrigated copiously and closed with 2-0 nylon suture over a Hemovac drain. There were no complications from the procedure. The wounds were dressed with Xeroform, 4 x 4s, and sterile soft compressive dressing was placed. Tourniquet was let down at 25 minutes. Toes pink and warm with good capillary refill. There were no [facility] [address] [place] [address] OPERATIVE REPORT Name: MALOU SPENCER Room #: 462-P [facility] IN M.R.#: [id number] Admission: 12/19/18 ������������������ Attend Phys: Castro Gonzalez MD Discharge: ������������������ Date of : 29 Report #: [id number] complications from the procedure. The patient tolerated the procedure well and went to the recovery room without incident. ��������������������������������������������� <ELECTRONICALLY SIGNED> ���������������������������������������� By: Castro Gonzalez MD ��������������������������������������������� 12/22/18 1438 0933 1116 Castro Gonzalez MD /nt
[2018-12-22 15:00] VITALS: BP 108/53
--- NOTE | 2018-12-22 15:07 | NUR ---
PATIENT IS CURRENT WITH [facility]. PER MAE [facility]ENO HH LIAISON, THEY WILL RESUME HH SERVICES AT DISCHARGE. FOLLOWING TO ASSIST WITH DISCHARGE.
--- NOTE | 2018-12-22 17:08 | NUR ---
CONSULTED TO PLACE A PICC FOR A PATIENT DISCHARGING WITH HOME IV ANTIBIOTICS. ORDER AND CONSENT NOTED. DISCUSSED WITH THE PROCEDURE WELL RISKS AND BENIFITS WITH THE PATIENT AND DPOA AND THEY VERBALIZED UNDERSTANDING. THE RUE BASILIC WAS WIDLEY PATENT. A #4F SINGLE LUMEN POWER PICC WAS PLACED AFTER A BEDSIDE TIMEOUT WAS COMPLETE PER POLICY. LINE WAS TRIMMED TO 45CM AND ADVANCED WITHOUT DIFFICULTY. A STAT CHEST XRAY CONFIRMED PICC IN GOOD POSITION FOR USE. 4W STAFF NURSE NOTIFIED LINE IS RELEASED FOR USE
[2018-12-22 19:32] VITALS: BP 173/65
[2018-12-23 03:23] VITALS: BP 154/85
--- NOTE | 2018-12-23 05:05 | NUR ---
ASSUMED CARE OF PT@[id number]. PT A&OX4 AT THIS SHIFT. UP WITH SBA TO THE BATHROOM. STILL ON 4L OF O2 AND USES CPAP AT NIGHT. RT FOOT DRESSING INTACT. WEARS FOOT BOOT TO AMBULATE. POC DONE AND ABX GIVEN WITH FLUIDS. WILL CONTINUE TO MONITOR
[2018-12-23 07:14] VITALS: BP 154/44
--- NOTE | 2018-12-23 12:43 | NUR ---
[facility] INDICATED THEY CAN ACCEPT PT AND THEY HAVE SUBMITTED FOR INSURANCE AUTH. CM TO FOLLOW INDICATED WITH DC PLANNING.
[2018-12-23 13:30] VITALS: BP 125/56
--- NOTE | 2018-12-23 16:24 | NUR ---
ASSUMED CARE AT 0700. PT HAS SURGICAL WOUND THAT IS WRAPPED FROM SURGERY WITH ORDER TO KEEP CDI. PT GETS UP WITH USE OF BOOT TO RIGHT FOOT AND WALKER AND GAIT BELT. THIS AFTERNOON PT'S DRESSING HAD BLOODY DRAINAGE THAT LEAKED THROUGH DRESSING ONTO MIYA WRAP. ORTHO WAS CALLED FOR WOUND CARE ORDER. DRESSING WAS CHANGED, XEROFORM GAUZE APPLIED, GAUZE, ABD, FOOT WRAPPED IN KERLIX AND THEN FOOT WRAPPED IN MIYA BANDAGE. ORDER IS TO KEEP DRESSING CDI. PT REQUESTED PAIN MEDICATION AFTER DRESSING CHANGE WHICH WAS GIVEN ORDERED AND PT IS RESTING COMFORTABLY IN BED. 2 DAUGHTERS AT BEDSIDE. ONE DAUGHTER WAS VERY UPSET THAT THE PT'S PAIN MEDICATION IS ORDERED PRN AND NOT SCHEDULED. PT HOWEVER WILL STATE AT TIME THAT HE IS IN NO PAIN AND DOES NOT NEED PAIN MEDICATION AND OTHER TIMES HE WILL TELL WHEN HE IS IN PAIN AND NEEDS PAIN MEDICATION. PT STATES HE IS FINE WITH HOW IT IS ORDERED EVEN THOUGH DAUGHTER IS UNHAPPY.
[2018-12-23 19:50] VITALS: BP 154/83
[2018-12-24] LABS: URINE BILIRUBIN NEGATIVE (Negative); URINE BLOOD TRACE (Negative); URINE CLARITY CLEAR; URINE COLOR YELLOW; URINE GLUCOSE-RANDOM* TRACE (Negative); URINE KETONES NEGATIVE (Negative); URINE LEUKOCYTES-REFLEX NEGATIVE (Negative); URINE NITRITE-REFLEX NEGATIVE (Negative); URINE PROTEIN (DIPSTICK) 2+ (Negative); URINE SPECIFIC GRAVITY 1.025 (1.005-1.035); URINE UROBILINOGEN 0.2 E.U./dl (0.2-1.0)
[2018-12-24 00:22] LABS: BACTERIA-REFLEX 1-9 Few /HPF (None Seen); HYALINE CASTS 0-3 Few /LPF (None Seen); MUCUS 4-6 Moderate strn/LPF (None Seen); SQUAMOUS 0-3 Few /LPF (0-3); URINE RBC 0-2 Rare /HPF (0-2); URINE WBC-REFLEX 0-5 Rare /HPF (0-5)
[2018-12-24 00:23] LABS: CRYSTALS None Seen /LPF (None Seen)
[2018-12-24 04:04] VITALS: BP 132/93
[2018-12-24 04:58] LABS: HEMATOCRIT 36.7 % (42.0-52.0); MCH 31.9 pg (26.0-34.0); MCHC 32.4 g/dL (28.0-37.0); MCV 98.4 fL (80.0-100.0); RBC 3.73 mil/uL (4.50-6.00); RDW 14.5 % (10.5-14.5); WBC 11.5 thou/uL (4.0-11.0)
[2018-12-24 04:59] LABS: HEMOGLOBIN 11.9 gm/dL (14.0-18.0)
--- NOTE | 2018-12-24 05:02 | NUR ---
Assumed pt care at 1900. Pt A/OX4,VSS. C/o pain to BLE more on the R foot,medicated per EMAR PRN Q6 with relief reported. Pt also c/o numbness/tingling to RLE has scheduled Gabapentin which is helping some. Pt wears a CPAP @ NOC but declined doing so tonight stating he does it as he pleases and would be on O2 tonight. O2 on @ 4L/NC,has CHOWDHURY. Pt is up with assist of 1 RW/GB to the bathroom. Fall precautions in place and hourly rounding done. Resting quietly in bed eyes closed with no distress noted at this time. Will continue to monitor pt.
[2018-12-24 07:21] VITALS: BP 140/67
--- NOTE | 2018-12-24 09:00 | NUR ---
PT SLEEPING YET EASILY AROUSED WITH VERBAL STIMULI. PT LUNGS CLEAR ON 4L, DIMINSHED TO BASES. PT DENIES ANY PAIN AT THIS TIME. PT HAS RT FOOT ELEVATED UP ON PILLOW, DRESSING D/I. PT UP WITH WALKER AND GAIT BELT, SITS ON SIDE OF BED FOR MEALS.
--- NOTE | 2018-12-24 10:43 | NUR ---
ADM HYDROCODONE 5MG 2 TABS PO FOR PAIN TO RT FOOT OF 6 ON 1-10 SCALE.
--- NOTE | 2018-12-24 14:43 | NUR ---
PT LEFT VIA TRANSPORT TO [facility], VIA W/C. DAUGHTER ACCOMPANIED PT TO FACILITY.
--- NOTE | 2018-12-24 14:50 | NUR ---
CALLED REPORT TO MIGUELITO MORALES AT [facility].
== END 2018-12-24 15:00 | DRG 475 ==
LOC: PRE 11:48 → 4W 13:27
PROVIDERS: Hospitalist; Internal Medicine; Internal Medicine Infectious Disease; ADMIT Orthopaedic Surgery Foot and Ankle Surgery
PROC: 0Y6M0Z4 Detachment at Right Foot, Complete 1st Ray, Open Approach (ICD-10-PCS; principal; 2018-12-20)
PROC: 02HV33Z Insertion of Infusion Device into Superior Vena Cava, Percutaneous Approach (ICD-10-PCS; 2018-12-22)
DX: T87.43 Infection of amputation stump, right lower extremity (principal); E44.1 Mild protein-calorie malnutrition; I13.0 Hypertensive heart and chronic kidney disease with heart failure and stage 1 through stage 4 chronic kidney disease, or unspecified chronic kidney disease; M86.8X7 Other osteomyelitis, ankle and foot; Y83.5 Amputation of limb(s) as the cause of abnormal reaction of the patient, or of later complication, without mention of misadventure at the time of the procedure; J44.9 Chronic obstructive pulmonary disease, unspecified; I25.10 Atherosclerotic heart disease of native coronary artery without angina pectoris; G47.33 Obstructive sleep apnea (adult) (pediatric); H18.411 Arcus senilis, right eye; I50.9 Heart failure, unspecified; E11.22 Type 2 diabetes mellitus with diabetic chronic kidney disease; N18.9 Chronic kidney disease, unspecified; E11.42 Type 2 diabetes mellitus with diabetic polyneuropathy; E66.3 Overweight; E11.69 Type 2 diabetes mellitus with other specified complication; E03.9 Hypothyroidism, unspecified; I48.2 Chronic atrial fibrillation; I87.2 Venous insufficiency (chronic) (peripheral); E78.5 Hyperlipidemia, unspecified; Z88.8 Allergy status to other drugs, medicaments and biological substances; Z79.2 Long term (current) use of antibiotics; Z79.4 Long term (current) use of insulin; Z79.899 Other long term (current) drug therapy; Z68.34 Body mass index [BMI] 34.0-34.9, adult
CPT/HCPCS: 10047; 27000; 50010; 50101; 50386; 50951; 57091; 57179; 62110; 62900; 70005

== ENCOUNTER 2019-01-10 19:06 | Inpatient (IN) | payer OTHER ==
[~2019-01-10] VITALS: Ht 177.8 cm; Wt 119.0 kg
[~2019-01-10 19:06] MED LIST changes: +NORCO 5-325 TA1 EAC1
[2019-01-10 19:07] VITALS: BP 191/111
[2019-01-10] MEDS ORDERED: SPIRONOLACTONE25 M1 PO (19:28)
[2019-01-10 19:32] LABS: BE(vivo) 4.6 mmol/L (-2 to +3); HCO3 30.9 mmol/L (22.0-26.0); PCO2 52.4 mmHg (35.0-45.0); PO2 67.6 mmHg (80.0-100.0); pH 7.388 (7.360-7.450)
--- NOTE | 2019-01-10 19:45 | NUR ---
RT at bedside putting pt on BIPAP
[2019-01-10 20:02] LABS: ABSOLUTE NEUTROPHILS 6.5 thou/uL (1.4-8.2); BASOPHILS 1.2 % (0.0-2.0); EOSINOPHILS 4.5 % (0.0-3.0); HEMATOCRIT 41.7 % (42.0-52.0); HEMOGLOBIN 13.7 gm/dL (14.0-18.0); LYMPHOCYTES 25.5 % (24.0-44.0); MCH 32.2 pg (26.0-34.0); MCHC 32.8 g/dL (28.0-37.0); MCV 98.4 fL (80.0-100.0); MONOCYTES 10.3 % (1.0-8.0); PLATELET COUNT 324 thou/uL (150-400); POLYS 58.5 % (36.0-66.0); RBC 4.23 mil/uL (4.50-6.00); RDW 15.1 % (10.5-14.5); WBC 11.2 thou/uL (4.0-11.0)
[2019-01-10 20:09] LABS: ANION GAP 3 mmol/L (7-16); BUN 42 mg/dL (7-18); CALCIUM 9.8 mg/dL (8.5-10.1); CHLORIDE 98 mmol/L (98-107); CO2 37 mmol/L (21-32); CREATININE 1.6 mg/dL (0.7-1.3); GLUCOSE 190 mg/dL (74-106); POTASSIUM 4.7 mmol/L (3.5-5.1); SODIUM 138 mmol/L (136-145)
[2019-01-10 20:17] LABS: TROPONIN-I <0.06 ng/mL (<0.06)
[2019-01-10] MEDS ORDERED: COLACE100 MG PO ×2 (20:57→20:59)
[2019-01-10] MEDS ORDERED: SYNTHROID175 MCG PO (20:59)
[2019-01-10] MEDS ORDERED: MEROPENEM-500 MG/50 IVPB (21:01)
[2019-01-10] MEDS ORDERED: VOLTAREN GEL 1100 G2 TOP (21:02)
--- NOTE | 2019-01-10 21:11 | NUR ---
CALLED [facility] VIA NURSE LINE [phone] AND GAVE UPDATE TO GRETA MORALES ABOUT PT BEING ADMITTED. DPOA DAUGHTER WILL BE PICKING SOME OF HIS POSSESSIONS THERE.
[2019-01-10 23:14] VITALS: BP 144/66
[2019-01-11] VITALS (7 sets, daily range): BP systolic 107–152; BP diastolic 52–100
[2019-01-11] MEDS ORDERED: MEROPENEM-500 MG/50 IVPB (02:30)
--- NOTE | 2019-01-11 03:15 | NUR ---
PATIENT WAS A NEW ADMISSION TO THE UNIT THIS SHIFT. HE ARRIVED VIA CART FROM THE ER AND WAS ABLE TO AMBULATE TO BED WITH ASSISTANCE INCIDENT FREE. PATIENT IS CURRENTLY ON BIPAP TO HELP WITH BREATHING. OXYGEN SATURATION AROUND 100%. PATIENT IS FULLY ORIENTED AND ABLE TO PARTICIPATE IN ADMISSION PROCESS AND CALL APPROPRIATELY FOR NEEDS. NURSE TO COMPLETE ADMISSION AND INITIATE CARE PLAN.
--- NOTE | 2019-01-11 20:18 | NUR ---
PT FEELS MUCH BETTER AFTER RESUMING MEDS...ON 3LNC WITH SATS 98%...
[2019-01-12 04:22] VITALS: BP 135/70
--- NOTE | 2019-01-12 07:38 | NUR ---
END OF SHIFT SUMMARY: Pt remained stable overnight on 2 L of O2. Sat > 92%, monitor a-fib with rates 48-77. Right foot drsg changed; silvadene applied to incision which is intact with sutures. Incision does not appear well approximated, but no drainage noted. Pt has remained within fluid restriction. No changes in skin integrity.
[2019-01-12 07:42] VITALS: BP 141/72
[2019-01-12 08:52] LABS: PREALBUMIN 16.1 mg/dL (18.0-35.7)
--- NOTE | 2019-01-12 09:01 | EKG ---
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: rosaura : 1930 Requested By: Deonte Farrell Order Number: [id number] MD: Yousif Najera Measurements Intervals [place] Rate: 102 P: HI: QRS: 157 QRSD: 104 T: 61 QT: 370 QTc: 483 Interpretive Statements Atrial fibrillation Occasional premature ventricular complexes Poor R wave progression Compared to ECG 07/04/2018 15:52:38 No significant change was found Electronically Signed On 01-12-2019 9:01:43 CDT by Yousif Najera [email or web address] ��������������������������������������������� <ELECTRONICALLY SIGNED> ���������������������������������������� By: Yousif Najera MD, [facility] ��������������������������������������������� 01/12/19900 20 20 Yousif Najera MD, FACC /EPI
[2019-01-12 09:15] LABS: CALCIUM 9.9 mg/dL (8.5-10.1); CREATININE 1.2 mg/dL (0.7-1.3); POTASSIUM 3.6 mmol/L (3.5-5.1)
--- NOTE | 2019-01-12 10:24 | NUR ---
Nutrition: pt admit with acute respiratory failure, CHF and seen for consult related to wound/weight gain. S/P right great toe amputation on 12/20. Per dtr pt was not restarted on diuretic after last D/C to [place]. Weights up 20# from earlier this month. On Na+ restriction, carb controlled diet, 1500 mL fluid restriction. Intake is good 100% most meals. Will offer Ensure max daily for additional protein for wound healing. Protein needs reviewed with pt. Pt did not appear appropriate for diet review at present. Follow for needs. Low risk.
--- NOTE | 2019-01-12 10:28 | NUR ---
assessment: CM REVIEWED CHART AND MET WITH PATIENT AT THE BEDSIDE. PT CAME INTO US FROM [facility] DUE TO ACUTE PULMONARY EDEMA. PT REPORTS THAT PRIOR TO GOING TO SNF HE LIVES AT HOME ALONE IN A HOUSE. PT REPORTS THAT HE NORMALLY USES A CANE OR WALKER. PT STATES HE HAS OXYGEN ARRANGED AT HOME FOR NEEDED DURING THE DAY AND USES A CPAP AT NIGHT WHICH HE BLIEVES IS SUPPLIED THROUGH [facility]. CM DISCUSSED ROLE. WAITING ON PT/OT EVALS BUT PATIENT LIKELY NEEDING POST ACUTE CARE AT DISCHARGE. CM ALSO SPOKE WITH PATIENTS DAUGHTER AND THEY REPORT THEY WERE NOT TOO HAPPPY WITH [facility] AND PREFER ANOTHER SNF SUCH [facility] OR [facility]. THEY REQUEST CM SEND A REFERRAL TO BOTH AND NICOLAS IS GOING TO GO TOUR. CM FAXED REFERRAL TO [facility] AND [facility]. CM WILL CONTINUE TO FOLLOW TO ASSIST NEEDED.
[2019-01-12 11:22] VITALS: BP 143/75
--- NOTE | 2019-01-12 15:50 | NUR ---
WOUND CARE FOLLOW UP; ROUNDING WITH DR CHAVEZ AND [facility] [employer]. THE RIGHT GREAT TOE AMP SITE HAS SOME SLOUGH/NECROSIS WITH UNSTABLE SUTURES. THE DRESSING WAS CHANGED. RECOMMENDATION; [employer] ,ERIN FUENTES. DISCUSSED WITH STAFF
[2019-01-12 15:55] VITALS: BP 155/89
[2019-01-12 19:31] VITALS: BP 146/77
--- NOTE | 2019-01-12 20:30 | NUR ---
PT MAY DISCHARGE SOON..DIURESING WELL...WILL MONITOR
[2019-01-12 23:07] LABS: GLYCOHEMOGLOBIN (HGB A1C) 8.4 % (4.8-5.6)
[2019-01-13 04:21] VITALS: BP 120/58
--- NOTE | 2019-01-13 04:44 | NUR ---
PATIENT IS PROGRESSING RAPIDLY IN HIS CARE PLAN. VITAL SIGNS STABLE WITH PATIENT HAVING NO COMPLAINTS OF NAUSEA. PATIENT DID COMPLAIN OF CHRONIC LOWER BACK PAIN WHICH WAS TREATED BY MEDICATION AND NON PHARMACOLOGICAL INTERVENTION. FULLY ORIENTED BUT FORGETFUL, PATIENT IS ABLE TO CALL FOR NEEDS AND PARTICIPATE IN CARE PLAN. HE IS UPSET ABOUT BEING A HIGH FALL RISK AND HAVING TO AMBULATE WITH STAFF AND CAN BE IMPULSIVE AT TIMES. RATE CONTROLLED AFIB THROUGHOUT SHIFT. PATIENT IS BREATHING FINE ON HOME DOSE OXYGEN EVIDENCED BY SPOT OXYGENATION CHECKS. UP MULTIPLE TIMES TO URINATE AND SIT IN RECLINER WITH ASSISTANCE INCIDENT FREE. CONTINUE PLAN OF CARE.
[2019-01-13 05:29] LABS: CALCIUM 9.6 mg/dL (8.5-10.1); CREATININE 1.3 mg/dL (0.7-1.3); POTASSIUM 3.9 mmol/L (3.5-5.1)
[2019-01-13 07:31] VITALS: BP 139/66
[2019-01-13 11:23] VITALS: BP 103/55
--- NOTE | 2019-01-13 12:36 | NUR ---
on-going assessment: LITO SPOKE WITH PATIENTS DAUGHTER WHO TOURED [facility] AND THEY LIKED THE SNF AND WANT TO PURSUE GOING THERE. LITO NOTIFIED LIASON AT [facility] AND SHE STATES THEY CLINICALLY CAN ACCEPT PATIENT AND ARE WORKING ON INSURANCE AUTH. LITO SPOKE WITH LIASON WHO REPORTS [facility] IS REQUESTING UPDATE PT/OT NOTES WELL DOCUMENTATION WHEN PATIENT IS READY. LITO NOTIFIED ATTENDING. ALSO FAXED UPDATED PT NOTE TO [facility].
--- NOTE | 2019-01-13 14:15 | HC ---
[facility] [place] [address] CONSULTATION Name: TJMALOU Sophy Room #: 352-P ADM IN M.R.#: [id number] Admission: 01/10/19 ������������������ Attend Phys: Shmuel Vázquez MD Discharge: ������������������ Date of : 28 Report #: [id number] THIS REPORT FOR: //name// CC: FAM unknown Shmuel Vázquez DATE OF SERVICE: 01/12/2019 CHIEF COMPLAINT: Right first ray amputation. HISTORY: This is an 88-year-old male patient, familiar to our service, who was admitted with lower extremity edema and underwent a right first toe amputation about [address] Gonzalez. He was admitted with congestive heart failure and I have been asked to see him with regard to ongoing wound care. PAST MEDICAL HISTORY: Significant for history of COPD, congestive heart failure, respiratory failure, atrial fibrillation, diabetes. He takes Eliquis for his AFib. ALLERGIES: Include SYMBICORT, GEMFIBROZIL, CARDIZEM, ADVAIR DISKUS, PRECOSE, SIMVASTATIN, BEXTRA, ACTOS, SPIRIVA. MEDICATIONS: Include Eliquis, Novolin, Caltrate, Brovana, Synthroid, Cozaar, Lopressor, Mag-Ox. SOCIAL HISTORY: Previous smoker, having quit in 1965. No alcohol use. FAMILY HISTORY: Noncontributory. REVIEW OF SYSTEMS: CONSTITUTIONAL: The patient denies fever, chills or weight loss. NEUROLOGICAL: The patient denies focal weakness, numbness or tingling. EYES: The patient denies visual changes, redness, or drainage. ENT: The patient denies earache, nasal drainage or sore throat. CARDIOVASCULAR: The patient denies chest pain, palpitations or diaphoresis. PULMONARY: The patient denies cough or shortness of breath. GASTROINTESTINAL: The patient denies nausea, vomiting, diarrhea or abdominal pain. ORTHOPEDIC: The patient notes the surgical wound to his right foot. Other systems in a 14-point review of systems are negative. PHYSICAL EXAMINATION: VITAL SIGNS: At this time include temperature 36.4, pulse ____, respiratory rate 20, blood pressure 155/89. GENERAL: This is a chronically ill-appearing male patient, [place] [address] CONSULTATION Name: MALOU SPENCER Room #: 352-P [facility] IN ..#: [id number] Admission: 01/10/19 ������������������ Attend Phys: Shmuel Vázquez MD Discharge: ������������������ Date of : 29 Report #: [id number] no distress. HEENT: Head is normocephalic. Nose and throat clear. NECK: Supple. LUNGS: Diminished. HEART: Irregular. ABDOMEN: Soft, nontender. EXTREMITIES: Lower extremities demonstrate a surgical incision to the right first ray. The great toe is surgically absent. There is some crusting, sutures remain in place. There is a small separation, but evidence of some granulation tissue, does not appear to be overtly infected. CLINICAL IMPRESSION: 1. Surgical wound to the right foot status post right first ray resection. 2. Diabetes mellitus. 3. Congestive heart failure. 4. Chronic obstructive pulmonary disease. RECOMMENDATIONS: At this point in time, we will recommend topical silver alginate to absorb any drainage and to reduce bacterial counts on the surface. We will leave the sutures in place at this time. We may peel-away some of the crusted areas along the incision line gradually. We will recommend elevation of the foot for edema control. I appreciate very much being asked to see him in consultation. ��������������������������������������������� <ELECTRONICALLY SIGNED> ���������������������������������������� By: Thierry Bloom MD ��������������������������������������������� 01/13/19 1415 1756 [id number] Thierry Bloom MD /nt
--- NOTE | 2019-01-13 14:52 | NUR ---
WOUND CARE FOLLOW UP; ROUNDING WITH DR CHAVEZ AND CANDY PICKLING DRUM OPERATOR. THE RIGHT GREAT TOE SHOWS IMPROVEMENT TODAY. DRAINAGE IS LESS TODAY. PATIENT HAS NO COMPLAINTS. THE WOUNDS SUTURES ARE PRESENT AND INTACT. RECOMMENDATIONS; CONTINUE POC DISCUSSED WITH CARMEN
[2019-01-13 15:27] VITALS: BP 126/81
--- NOTE | 2019-01-13 19:00 | NUR ---
PT HAS VOIDED MULTIPLE TIMES AND NEVER CALLS FOR HELP...CHAIR/BED ALARMS ON AT ALL TIMES AND FREQ ROUNDS...
[2019-01-13 19:28] VITALS: BP 138/65
[2019-01-14 05:01] VITALS: BP 150/66
[2019-01-14 06:18] LABS: CALCIUM 10.1 mg/dL (8.5-10.1); CREATININE 1.4 mg/dL (0.7-1.3); POTASSIUM 3.4 mmol/L (3.5-5.1)
--- NOTE | 2019-01-14 06:43 | NUR ---
PATIENT IS PROGRESSING IN HIS CARE PLAN. VITAL SIGNS STABLE WITH PATIENT HAVING NO COMPLAINTS OF PAIN OR NAUSEA. FULLY ORIENTED, PATIENT WAS ABLE TO PARTICIPATE IN CARE AND CALL APPROPRIATELY FOR NEEDS. BREATHING STABLE EVIDENCED BY OXYGENATION CHECKS AND READINGS ON CONTINUOUS SATURATION MONITOR. CONTROLLED A FIB THROUGHOUT SHIFT. PATIENT WAS ABLE TO TOLERATE BIPAP FOR GOOD PORTION OF TIME. UP MULTIPLE TIMES TO BEDSIDE COMMODE WITH ASSISTANCE INCIDENT FREE. PATIENT IS ANXIOUS FOR POTENTIAL DISCHARGE. CONTINUE PLAN OF CARE.
[2019-01-14 07:19] VITALS: BP 138/101
[2019-01-14 11:38] VITALS: BP 113/56
--- NOTE | 2019-01-14 12:12 | NUR ---
ON-GOING ASSESSMENT: CM FAXED UPDATED THERAPY NOTES TO [facility] UPDATED PROGRESS NOTES AND MEDS STATING PATIENT IS MEDICALLY STABLE FOR DISCHARGE TO SNF PENDING INSURANCE AUTH. CM NOTIFIED LIASON AT [facility]. AUTH IS STILL PENDING AT THIS TIME.
[2019-01-14 15:34] VITALS: BP 125/60
[2019-01-14 19:18] VITALS: BP 135/66
[2019-01-15 03:30] VITALS: BP 122/67
[2019-01-15 05:25] LABS: CALCIUM 10.4 mg/dL (8.5-10.1); CREATININE 1.4 mg/dL (0.7-1.3); POTASSIUM 3.2 mmol/L (3.5-5.1)
--- NOTE | 2019-01-15 05:48 | NUR ---
Pt. stated he slept fair during the night. Maintaining O2 sat in the mid to upper 90's on 2L/NC. No respiratory distress.Up with assist x1 to use urinal while standing up. Right leg elevated with dressing CDI. Bed alarm on for safety and he calls appropriately for assistance. Making progress towards care plan goals.
[2019-01-15 07:25] VITALS: BP 115/68
[2019-01-15 11:13] VITALS: BP 134/62
--- NOTE | 2019-01-15 12:55 | NUR ---
ON-GOING ASSESSMENT: LITO SPOKE WITH MILO OLVERA FROM [facility] WHO STATES THEY HAVE INSURANCE AUTH FOR SNF. CM NOTIFIED PT AND BEDSIDE RN WELL HIS DAUGHTER. CM FAXED D/C ORDERS TO [facility] AND SHE IS ARRANGING TRANSPORTATION ( DAUGHTER REQUEST AFTER 1430 SO SHE CAN BE PRESENT) WAITING ON TIME. CHART COPY ORDERED. PT NOTIFIED AND AGREEABLE WITH PLAN. BEDSIDE RN GIVEN THE NUMBER FOR REPORT. PT REPORTS NO FURTHER QUESTIONS FROM CM. CM WILL NOTIFY BEDSIDE RN ONCE TIME HAS BEEN ARRANGED.
--- NOTE | 2019-01-15 14:29 | NUR ---
ASSUMED CARE OF PT AT APPROX 0700. PT IS ALERT AND ORIENTED X4, MONITORED ON TELE AND ABLE TO MAINTAIN 02 SAT >90 ON 2L NC. DENIES PAIN AND SOA. PT FORGETFUL AT TIMES BUT IS EASILY REORIENTED. ASSESSMENT CHARTED. NAD NOTED. WAITING DC INSTRUCTIONS. PT TO BE DC'D TO SNF JUST WAITING ON TRANSPORTATION DETAILS. PT AND HAVE BEEN UPDATED ON POC AND DENY ANY FURTHER QUESTIONS OR CONCERNS. WILL CONTINUE TO MONITOR.
--- NOTE | 2019-01-16 11:10 | HC ---
[facility] [place] [address] CONSULTATION Name: MALOU VAZQUEZ Room #: 352-P [facility] IN M.R.#: [id number] Admission: 01/10/19 ������������������ Attend Phys: Shmuel Vázquez MD Discharge: 01/15/19 ������������������ Date of : 29 Report #: [id number] THIS REPORT FOR: //name// CC: FAM unknown Shmuel Vázquez DATE OF SERVICE: 01/11/2019 CONSULTATION: Infectious diseases. HISTORY OF PRESENT ILLNESS:Malou Vazquez is an 88-year-old white male admitted from [facility] on 01/10/2019 because of increased dyspnea, shortness of breath and swelling. The patient had been discharged on torsemide b.i.d., but at rehabilitation, this was cut down to once a day. He was brought to the hospital and diuresis was initiated. Today, the patient feels much better and back to baseline. The patient was being followed by infectious disease for diabetic foot wound with osteomyelitis. The patient has been hospitalized from 12/06/2018 to 12/11/2018 for gangrene of the great toe. The patient had a toe amputation, but the wound did not heal. On 12/19/2018, this was revised to a ray amputation. Surgical culture at that time grew methicillin-sensitive Staphylococcus aureus, Enterobacter and Prevotella. The patient was treated with meropenem with plans to complete 4-6 weeks of IV antibiotic therapy. He returned to rehabilitation and then required readmission for dyspnea. PAST MEDICAL HISTORY: The patient has a history of diabetes with hyperlipidemia, coronary artery disease, atrial fibrillation, congestive heart failure, sleep apnea, COPD, aortic stenosis, pulmonary hypertension and hypothyroidism. ALLERGIES: THE PATIENT HAS ALLERGIES OR ADVERSE REACTIONS TO BUDESONIDE, GEMFIBROZIL, DILTIAZEM, FLUTICASONE, FORMOTEROL, SALMETEROL, SIMVASTATIN, ACARBOSE, VALDECOXIB, PIOGLITAZONE AND TIOTROPIUM. No antibiotics are noted on the allergy list. FAMILY HISTORY: Noncontributory. SOCIAL HISTORY: The patient is . He normally lives alone. He did smoke cigarettes, but quit 53 years ago. He is retired from [employer] at [employer] and . No history of alcohol. No drugs. REVIEW OF SYSTEMS: CONSTITUTIONAL: The patient says he feels back to baseline now. He denies any complaints. He specifically denies fevers, chills, sweats, weakness, malaise. PULMONARY: He denies headache, sinus congestion, sore throat, trouble [facility] [address] [place] [address] CONSULTATION Name: MALOU VAZQUEZ Room #: 352-P [facility]#: [id number] Admission: 01/10/19 ������������������ Attend Phys: Shmuel Vázquez MD Discharge: 01/15/19 ������������������ Date of : 29 Report #: [id number]. CARDIOVASCULAR: He denies cough, chest pain or shortness of breath. These have resolved with diuresis overnight. GASTROINTESTINAL: The patient denies nausea, vomiting, diarrhea, constipation, abdominal pain. GENITOURINARY: The patient denies urinary complaints. MUSCULOSKELETAL: Denies any pain from his amputation or his feet. PHYSICAL EXAMINATION: GENERAL: The patient appears his stated age, robust, comfortable, not in any distress. VITAL SIGNS: Show minimum temperature measured at 35.9. No fevers have been measured. SKIN: Shows no rash or lesion. Wound described below. ENT: Negative. HEART: Heart sounds S1, S2. LUNGS: Clear to anterior auscultation. ABDOMEN: Belly is obese, soft, nontender, without mass nor organomegaly. GENITALIA: Unremarkable. EXTREMITIES: The patient has chronic venous stasis changes. There is no significant edema. The right first ray amputation site was undressed. The sutures remain in place (postoperative day #23). There is some dehiscence with crusting in the wound. There is some erythema just around the wound. There is almost no drainage on the dressing. LABORATORY DATA: White count is 11.2, hemoglobin 13.7, platelets 324,000. Electrolytes normal, BUN 42 and creatinine is 1.6, which is baseline. BNP is 3115. CRP is elevated at 51. ASSESSMENT AND PLAN: In summary, we have a gentleman admitted with heart failure due to under-diuresis. This corrected with diuresis quickly. He is being treated for osteomyelitis with ray amputation and IV antibiotics. He is tolerating the medication without any side effect or problems. The wound looks okay, but not great. There is some minor dehiscence and dry crusting in the wound. At this time, I will continue the meropenem to complete the 4- to 6-week course as outlined in his last discharge summary by Dr. Jarquin. I would like to do a followup sedimentation rate, also check zinc, TSH, hemoglobin A1c and a BNP to make sure there is no medical impediments to optimal wound healing. The dietitian offered Brandon as a supplement. I would like Dr. Gonzalez, the surgeon to look at the wound while the patient is here in the hospital. For now, we [address] [place] [address] CONSULTATION Name: TJMALOU Beckett Room #: 352-P DIS IN M.R.#: [id number] Admission: 01/10/19 ������������������ Attend Phys: Shmuel Vázquez MD Discharge: 01/15/19 ������������������ Date of : 29 Report #: [id number] will use Silvadene and gauze to the wounds. The venous stasis appears to be under good control and does not require any intervention at this time. ��������������������������������������������� <ELECTRONICALLY SIGNED> ���������������������������������������� By: Malou Yung MD ��������������������������������������������� 01/16/19 1110 1152 05 Malou Yung MD /nt
== END 2019-01-15 16:38 | DRG 291 ==
LOC: ER 19:06 → EROBS 20:27 → 3W 20:27
PROVIDERS: Emergency Medicine; Hospitalist; Internal Medicine; Internal Medicine Infectious Disease; ADMIT Internal Medicine
PROC: 5A09357 Assistance with Respiratory Ventilation, Less than 24 Consecutive Hours, Continuous Positive Airway Pressure (ICD-10-PCS; principal; 2019-01-10)
PROC: 5A09357 Assistance with Respiratory Ventilation, Less than 24 Consecutive Hours, Continuous Positive Airway Pressure (ICD-10-PCS; 2019-01-11)
DX: I13.0 Hypertensive heart and chronic kidney disease with heart failure and stage 1 through stage 4 chronic kidney disease, or unspecified chronic kidney disease (principal); I50.33 Acute on chronic diastolic (congestive) heart failure; J96.21 Acute and chronic respiratory failure with hypoxia; J81.0 Acute pulmonary edema; M86.8X7 Other osteomyelitis, ankle and foot; D68.59 Other primary thrombophilia; N17.9 Acute kidney failure, unspecified; E44.1 Mild protein-calorie malnutrition; E11.69 Type 2 diabetes mellitus with other specified complication; E11.22 Type 2 diabetes mellitus with diabetic chronic kidney disease; N18.3 Chronic kidney disease, stage 3 (moderate); I25.10 Atherosclerotic heart disease of native coronary artery without angina pectoris; E03.9 Hypothyroidism, unspecified; E78.5 Hyperlipidemia, unspecified; J44.9 Chronic obstructive pulmonary disease, unspecified; M19.90 Unspecified osteoarthritis, unspecified site; E11.40 Type 2 diabetes mellitus with diabetic neuropathy, unspecified; I16.0 Hypertensive urgency; G47.33 Obstructive sleep apnea (adult) (pediatric); I48.0 Paroxysmal atrial fibrillation; E87.70 Fluid overload, unspecified; I35.0 Nonrheumatic aortic (valve) stenosis; I27.20 Pulmonary hypertension, unspecified; Z60.2 Problems related to living alone; E83.42 Hypomagnesemia; E87.6 Hypokalemia; N40.0 Benign prostatic hyperplasia without lower urinary tract symptoms; Z79.4 Long term (current) use of insulin; Z89.012 Acquired absence of left thumb; Z88.8 Allergy status to other drugs, medicaments and biological substances; Z87.891 Personal history of nicotine dependence; Z85.51 Personal history of malignant neoplasm of bladder; Z47.89 Encounter for other orthopedic aftercare; Z68.37 Body mass index [BMI] 37.0-37.9, adult
CPT/HCPCS: 10879

== ENCOUNTER 2019-01-26 02:05 | Inpatient (IN) | payer OTHER ==
[~2019-01-26] VITALS: Ht 177.8 cm; Wt 115.0 kg
[2019-01-26] VITALS (8 sets, daily range): BP systolic 125–193; BP diastolic 52–118
--- NOTE | ~2019-01-26 | EMS ---
[facility] [address] [place] [address] EMS Patient Care Report Name: MALOU SPENCER Room #: REG ANASTASIA Kaufman#: [id number] Admission: 01/26/19 Attend Phys: Discharge: Date of : 29 Report #: [id number] THIS REPORT FOR: //name// Report Transmitted: 01/26/2019 01:54 EMS Care Summary [facility] Incident [id number] @ 01/26/2019 01:21 Incident Location [address] [place] [address] Patient MALOU SPENCER Male, 88 Years 1930 Patient Address [address] [place] [address] Patient History Hypertension,Atrial Fibrillation,Type 2 Diabetes, Patient Allergies No known allergies, Patient Medications Spironolactone, Oxygen, Tamsulosin, Losartan, Ondansetron, Torsemide, Arformoterol, Docusate Sodium, Albuterol, Insulin, Furosemide, Levothyroxine, Gabapentin, Hydrocodone, Magnesium Oxide, Glucagon, Diclofenac, Metoprolol, Apixaban, Chief Complaint "I can't breathe." Disposition Transported No Lights/[place] Dispatch Reason Breathing Problem Transported To [facility] Narrative [facility] [address] [place] [address] EMS Patient Care Report Name: MALOU SPENCER Room #: REG ANASTASIA Kaufman#: [id number] Admission: 01/26/19 Attend Phys: Discharge: Date of : 29 Report #: [id number] arrived to find the pt sitting upright, on the edge of a bed, in the tidy room of a rehab facility, in the presence of facility staff. EMS noted that the pt was without obvious anxiety, distress, or life threat. The pt reported that he had been sleeping and was awoken at 0000 on 01/26/19 by staff so they could administer medication. Staff members reported finding the pt to be hypoxic in his sleep, with an SPO2 "down into the 70's." The pt reported that he had fallen asleep wearing his CPAP mask, that he only uses at night, and that they had removed it, causing him to have trouble breathing. Facility staff reported that they had trouble-shooted why the pt had become so hypoxic - seeing if the oxygen tank was working, administering O2 via NC, and seeing if the pt would respond to CPAP - without success for the next 90 minutes prompting them to call 911. At the time of pt contact the pt was denying all medical symptoms with a RA SPO2 of 84% ON 2LPM O2 via NC. The pt denied recent illness or chest pain. EMS noted that the pt had cyanotic lips and had a ruptured blood vessel in his left eye. The pt's condition improved from 84% SPO2 on 2LPM O2 via NC to 93% on 4lpm O2 via NC. Once the pt was moved to the cot, he again reported shortness of breath, and his SPO2 dropped down to 88%. EMS then administered 10lpm O2 via NRB, and the pt again reported relief from his respiratory distress and his SPO2 increased to 99%. Otherwise, the pt's condition remained stable and unchanged during contact with EMS. Initial Vitals @01:38P: 82,R: 20,Pain: 0/10,GCS: 15,SpO2: 92,MO Suspected: false @01:36P: 86,R: 20,BP: 201/122,Pain: 0/10,GCS: 15,SpO2: 93,Revised Trauma: 12,MO Suspected: false @01:33P: 74,R: 20,BP: 203/125,Pain: 0/10,GCS: 15,SpO2: 81,Revised Trauma: 12, @01:57P: 122,R: 20,Pain: 0/10,GCS: 15,EtCO2: 24,SpO2: 99, @01:52P: 83,R: 24,BP: 188/119,Pain: 0/10,GCS: 15,EtCO2: 28,SpO2: 84,Revised Trauma: 12,MO Suspected: false Assessments @01:32MENTAL:Person Oriented,Time Oriented,Place Oriented,Event Oriented,SKIN:Cyanotic,HEENT:Eyes: Left: Other,Head/Face: No Abnormalities,Neck/Airway: No Abnormalities,LUNG SOUNDS:General: No Abnormalities,ABDOMEN:General: No Abnormalities,PELVIS//GI:No Abnormalities,EXTREMITIES:Left Arm: No Abnormalities,Right Arm: No Abnormalities,Left Leg: No Abnormalities,Right Leg: No Abnormalities,PULSE:NEURO:No Abnormalities, Impression Respiratory disorder [facility] [address] [place] [address] EMS Patient Care Report Name: MALOU SPENCER Room #: REG ER Mandeep#: [id number] Admission: 01/26/19 Attend Phys: Discharge: Date of : 29 Report #: [id number] Procedures @01:3812-Lead ECGResponse: UnchangedSucceeded@01:32Oxygen FlowRate: 4 Device: Nasal Cannula (NC) Response: ImprovedSucceeded@01:53Oxygen FlowRate: 10 Device: Non Re-breather Mask (NRB) Response: ImprovedSucceeded Timeline 01:21,Call Received 01:21,Psap Call 01:21,Dispatched 01:22,En Route 01:28,On Scene 01:30,At Patient 01:32,Oxygen FlowRate: 4 Device: Nasal Cannula (NC) Response: ImprovedSucceeded, 01:33,BP: 203/125 M,PULSE: 74,RR: 20 R,SPO2: 81 Ox,ETCO2: ,BG: ,PAIN: 0,GCS: 15, 01:36,BP: 201/122 M,PULSE: 86,RR: 20 R,SPO2: 93 Ox,ETCO2: ,BG: ,PAIN: 0,GCS: 15, 01:38,12-Lead ECG,Response: UnchangedSucceeded, 01:38,BP: / M,PULSE: 82,RR: 20 R,SPO2: 92 Ox,ETCO2: ,BG: ,PAIN: 0,GCS: 15, 01:50,Depart Scene 01:52,BP: 188/119 M,PULSE: 83,RR: 24 R,SPO2: 84 Ox,ETCO2: 28 ,BG: ,PAIN: 0,GCS: 15, 01:53,Oxygen FlowRate: 10 Device: Non Re-breather Mask (NRB) Response: ImprovedSucceeded, 01:57,BP: / M,PULSE: 122,RR: 20 R,SPO2: 99 Ox,ETCO2: 24 ,BG: ,PAIN: 0,GCS: 15, 02:00,At Destination 02:11,Call Closed Disclaimer v1.1 Copyright 2019 [employer] This EMS Care Summary contains data elements from the applicable legal record (which may be displayed differently). It is designed to provide pertinent information for the following purposes: continuity of care, clinical quality, and state data reporting. The complete legal record is available to ED staff and administrators of the receiving hospital in [facility]'s Patient Tracker. All data is provided "as is."
[~2019-01-26 02:05] MED LIST changes: +MEROPENEM-500 MG/50 IVPB; +SPIRONOLACTONE25 M1 PO; +SYNTHROID175 MCG PO; +VOLTAREN GEL 1100 G2 TOP
[2019-01-26] MEDS ORDERED: SPIRONOLACTONE25 M1 PO (02:08)
[2019-01-26] MEDS ORDERED: SSD CREAM 1% 5050 GM TOP (02:13)
[2019-01-26] MEDS ORDERED: FLOMAX0.4 MG PO (02:13)
[2019-01-26] MEDS ORDERED: ACETAMINOP-CODEI5 ML PO (02:16)
[2019-01-26 02:28] LABS: ABSOLUTE NEUTROPHILS 10.8 thou/uL (1.4-8.2); EOSINOPHILS 3.4 % (0.0-3.0); HEMATOCRIT 40.6 % (42.0-52.0); HEMOGLOBIN 13.3 gm/dL (14.0-18.0); LYMPHOCYTES 9.8 % (24.0-44.0); MCH 32.4 pg (26.0-34.0); MCHC 32.8 g/dL (28.0-37.0); MCV 98.8 fL (80.0-100.0); MONOCYTES 8.1 % (1.0-8.0); PLATELET COUNT 248 thou/uL (150-400); POLYS 77.7 % (36.0-66.0); RBC 4.11 mil/uL (4.50-6.00); RDW 15.6 % (10.5-14.5); WBC 13.8 thou/uL (4.0-11.0)
[2019-01-26 02:31] LABS: CALCIUM 9.3 mg/dL (8.5-10.1); CREATININE 1.4 mg/dL (0.7-1.3); POTASSIUM 4.3 mmol/L (3.5-5.1)
[2019-01-26 02:37] LABS: ALBUMIN 3.4 g/dL (3.4-5.0); TOTAL BILIRUBIN 0.7 mg/dL (<0.1-1.0); TOTAL PROTEIN 7.7 g/dL (6.4-8.2)
--- NOTE | 2019-01-26 08:25 | EKG ---
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 : 1930 Requested By: Jagjit Beck Order Number: [id number] MD: Yousif Najera Measurements Intervals [place] Rate: 87 P: CT: QRS: 196 QRSD: 150 T: 44 QT: 439 QTc: 528 Interpretive Statements Atrial fibrillation Rightward axis Paired ventricular premature complexes Nonspecific intraventricular conduction delay Anterior infarct, old Compared to ECG 01/10/2019 19:21:33 No significant change was found Electronically Signed On 01-26-2019 8:25:30 CDT by Yousif Najera [email or web address] <ELECTRONICALLY SIGNED> By: Yousif Najera MD, [facility] [birth year]1925 4 4 Yousif Najera MD, [facility] /EPI
[2019-01-26 13:07] LABS: BE(vivo) 6.2 mmol/L (-2 to +3); HCO3 31.3 mmol/L (22.0-26.0); PCO2 46.7 mmHg (35.0-45.0); PO2 64.4 mmHg (80.0-100.0); pH 7.444 (7.360-7.450); sO2 93.2 % (92.0-98.0)
--- NOTE | 2019-01-26 15:22 | 2DMMODE ---
[facility] [address] [place] [address] 2 D/M-MODE ECHOCARDIOGRAM Name: MALOU SPENCER Room #: 201-P ADM IN M.R.#: [id number] Admission: 01/26/19 Attend Phys: Shmuel Vázquez MD Discharge: Date of : 29 Date of Service: 01/26/19 1521 Report #: [id number] THIS REPORT FOR: //name// APPROVED REPORT Study performed: 01/26/2019 13:50:55 EXAM: Comprehensive 2D, Doppler, and color-flow Echocardiogram Patient Location: Bedside Room #: 201 Status: routine BSA: 2.31 HR: 71 bpm BP: 143/65 mmHg Rhythm: Atrial Fibrillation/PVCS Indications Dyspnea Hx: Afib, DM, COPD, CHF, HTN. 2D Dimensions RVDd: 48.15 mm IVSd: 12.16 (7-11mm) LVOT Diam: 23.11 (18-24mm) LVDd: 48.67 mm PWd: 11.44 (7-11mm) LVDs: 38.72 (25-40mm) Aortic Root: 41.17 mm Volumes Left Atrial Volume (Systole) Single Plane 4CH: 105.57 mL Single Plane 2CH: 119.55 mL LA ESV Index: 52.00 mL/m2 Aortic Valve AoV Peak Kimo.: 2.34 m/s AO Peak Gr.: 21.95 mmHg LVOT Max P.05 mmHg AO Mean Gr.: 14.12 mmHg AO V2 Mean: 1.79 m/s LVOT Max V: 0.86 m/s AO V2 VTI: 49.19 cm CASSI Vmax: 1.53 cm2 Mitral Valve MV Decel. Time: 159.69 ms MV E Max Kimo.: 1.45 m/s [facility] [place] [place] [address] 2 D/M-MODE ECHOCARDIOGRAM Name: SPENCERMALOU Room #: 201-P [facility] IN .R.#: [id number] Admission: 01/26/19 Attend Phys: Shmuel Vázquez MD Discharge: Date of : 29 Date of Service: 01/26/19 1521 Report #: [id number] Pulmonary Valve PV Peak Kimo.: 0.84 m/s PV Peak Gr.: 2.84 mmHg Tricuspid Valve TR Peak Kimo.: 3.42 m/s RAP Estimate: 10.00 mmHg TR Peak Gr.: 46.70 mmHg PA Pressure: 56.00 mmHg Left Ventricle The left ventricle is normal size. There is normal LV segmental wall motion. Mild concentric left ventricular hypertrophy. The left ventricular systolic function is normal. The left ventricular ejection fraction is within the normal range. LVEF is 55%. This study is not technically sufficient to allow evaluation of the LV diastolic function due to atrial fibrillation. Right Ventricle Right ventricle is dilated. The right ventricular systolic function is low normal. Atria Left atrium is severely dilated. Right atrium is severely dilated. Aortic Valve Aortic valve is moderately calcified. Mild stenosis Mild aortic regurgitation. There is mild valvular aortic stenosis. Calculated aortic valve area is 1.5 cm2 with maximum pressure gradient of 22 mmHg and mean pressure gradient of 14 mmHg. Mitral Valve Mitral valve leaflets are mildly calcified. Mild mitral annular calcification. Mild mitral regurgitation. No evidence of mitral valve stenosis. Tricuspid Valve The tricuspid valve is normal in structure. Moderate tricuspid regurgitation. Estimated PAP is 55-60mmHg. Pulmonic Valve The pulmonary valve is normal in structure. Mild pulmonic regurgitation. Great Vessels Aortic root is dilated at 4.1cm. Ascending aorta is not well visualized. IVC is dilated and collapses <50% with [facility] [address] [place] [address] 2 D/M-MODE ECHOCARDIOGRAM Name: TJMALOU Room #: 201-P [facility] IN M.R.#: [id number] Admission: 01/26/19 Attend Phys: Shmuel Vázquez MD Discharge: Date of : 29 Date of Service: 01/26/19 1521 Report #: [id number]. Pericardium There is no pericardial effusion. <Conclusion> The left ventricular systolic function is normal. LVEF is 55%. Right ventricle is dilated. Both atria are dilated. Aortic valve is moderately calcified. Mild stenosis and insufficiency Calculated aortic valve area is 1.5 cm2 (Peak pressure gradient of 22 mmHg, mean pressure gradient of 14 mmHg). Mitral valve leaflets are mildly calcified. Mild mitral annular calcification. Mild mitral regurgitation. Moderate tricuspid regurgitation. Estimated pulmonary artery pressure of 55-60mmHg. There is no pericardial effusion. <ELECTRONICALLY SIGNED> By: Yousif Najera MD, [facility] 01/26/19 1521 152 [id number] Yousif Najera MD, [facility] /INF
[2019-01-27 04:00] VITALS: BP 124/54
[2019-01-27 05:12] LABS: CALCIUM 9.8 mg/dL (8.5-10.1); CREATININE 1.3 mg/dL (0.7-1.3); POTASSIUM 3.4 mmol/L (3.5-5.1)
[2019-01-27 05:51] LABS: FOLIC ACID 20.4 ng/mL (8.6-58.9)
[2019-01-27 08:00] VITALS: BP 110/52
--- NOTE | 2019-01-27 08:37 | EKG ---
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 : 1930 Requested By: Yousif Najera Order Number: [id number] MD: Yousif Najera Measurements Intervals [place] Rate: 81 P: GA: QRS: -19 QRSD: 110 T: 63 QT: 358 QTc: 416 Interpretive Statements Atrial fibrillation Premature ventricular complexes Poor R wave progression Compared to ECG 01/26/2019 02:15:58 no significant change was found Electronically Signed On 01-27-2019 8:37:32 CDT by Yousif Najera [email or web address] <ELECTRONICALLY SIGNED> By: Yosuif Najera MD, [facility] 01/27/19 0837 8 Yousif Najera MD, [facility] /EPI
[2019-01-27 12:00] VITALS: BP 107/43
[2019-01-27 16:00] VITALS: BP 152/71
--- NOTE | 2019-01-27 17:29 | HC ---
[facility] [place] [address] CONSULTATION Name: SPENCERMALOU Room #: 201-P [facility] IN M.R.#: [id number] Admission: 01/26/19 Attend Phys: Shmuel Vázquez MD Discharge: Date of : 29 Report #: [id number] THIS REPORT FOR: //name// CC: FAM unknown Shmuel Vázquez HISTORY OF PRESENT ILLNESS: The patient is an 88-year-old gentleman with permanent atrial fibrillation, chronic kidney disease, severe pulmonary hypertension and diabetes. He was recently hospitalized with heart failure exacerbation and lower extremity diabetic foot ulcer. He was recently discharged to a nursing facility. Over the past 3 days, he has had increasing shortness of breath and lower extremity edema. The facility reported low oxygen saturations and a nonrebreather and BiPAP were placed. He denies chest heaviness, pressure or ischemic type symptoms. He denies fevers, chills or night sweats. No recent changes in his medicines. His daughter reports that his usual home dose of torsemide was 40 mg twice daily, although he had only been getting 40 mg daily. MEDICATIONS: Include albuterol, gabapentin 300 mg 4 times a day, losartan 50 mg daily, insulin 25 units twice daily, levothyroxine 175 mcg daily, apixaban 2.5 mg twice daily, metoprolol 50 mg twice daily, Flomax 0.4 mg daily, potassium 40 mEq twice daily. PAST MEDICAL HISTORY: Medical records have been reviewed and include a history of severe COPD, chronic kidney disease, diabetes, permanent atrial fibrillation, sleep apnea. SOCIAL HISTORY: He is a former heavy smoker, quit many years ago. He is . FAMILY HISTORY: Notable for father who at 83. No family history of premature coronary artery disease. ALLERGIES: He is allergic to Lopid, diltiazem, Advair, simvastatin, Bextra, Actos and Spiriva. REVIEW OF SYSTEMS: All systems negative except as that noted above. PHYSICAL EXAMINATION: GENERAL: A pleasant gentleman who is alert, BiPAP is placed. VITAL SIGNS: Blood pressure is 148/67, heart rate of 73 and regular, temperature is 98.2 degrees. HEENT: There is neither xanthelasma, subcutaneous xanthomata, oral mucosal or digital cyanosis or kyphoscoliosis present. CHEST: Reveals diminished breath sounds at both bases. CARDIOVASCULAR: Irregularly irregular rhythm with normal S1, S2. Pulmonic closure sound is increased in intensity. [facility] [address] [place] [address] CONSULTATION Name: MALOU SPENCER Room #: 201-P [facility] IN [facility].#: [id number] Admission: 01/26/19 Attend Phys: Shmuel Vázquez MD Discharge: Date of : 29 Report #: [id number] ABDOMEN: Soft, obese and nontender. EXTREMITIES: Reveal 1-2+ pedal edema. Radial pulses are 2+. NEUROLOGIC: He is alert with a nonfocal exam. LABORATORY DATA: Sodium 143, potassium 4.3, creatinine 1.4. ProBNP of 2740. White count 13.8, hemoglobin 13, hematocrit 40, platelet count 248. Chest x-ray demonstrates mild interstitial infiltrate similar to previously. EKG: Atrial fibrillation with premature ventricular complexes. IMPRESSION: 1. Permanent atrial fibrillation. 2. Cfwdq-sq-dmsvvhs diastolic heart failure. 3. Severe pulmonary hypertension. 4. Chronic obstructive pulmonary disease. 5. Chronic kidney disease, stage 3. 6. Osteomyelitis. 7. Mild aortic stenosis. 8. Hypercoagulable. RECOMMENDATIONS: 1. IV Lasix. 2. Continued use of metoprolol. Dose adjusted, apixaban. 3. Salt restriction discussed. <ELECTRONICALLY SIGNED> By: Yousif Najera MD, FACC 01/27/19 1729 0743 1044 Yousif Najera MD, FACC /nt
[2019-01-27 19:34] VITALS: BP 117/62
[2019-01-28 05:35] VITALS: BP 117/56
[2019-01-28 06:36] LABS: CALCIUM 10.2 mg/dL (8.5-10.1); CREATININE 1.7 mg/dL (0.7-1.3)
[2019-01-28 07:55] VITALS: BP 100/47
[2019-01-28 10:51] VITALS: BP 90/69
[2019-01-28] MEDS ORDERED: NOVOLOG100 UNIT/1 SUBQ (12:06)
--- NOTE | 2019-01-28 14:27 | HC ---
[facility] [place] [address] CONSULTATION Name: TJMALOU Sophy Room #: 201-P ADM IN M.R.#: [id number] Admission: 01/26/19 Attend Phys: Shmuel Vázquez MD Discharge: Date of : 29 Report #: [id number] THIS REPORT FOR: //name// CC: FAM unknown Shmuel Vázquez DATE OF SERVICE: 01/26/2019 PERSONAL PHYSICIAN: Shmuel Vázquez M.D. CHIEF COMPLAINT: Left foot wound. HISTORY OF PRESENT ILLNESS: This is an 88-year-old white male who is well known to me from long-term care of recent left great toe amputation secondary to osteomyelitis. The patient has been doing rehabilitation at a skilled facility when recently he was having increasing shortness of breath and hypoxia, which prompted them to send him to the Emergency Department for admission. The patient also has noted that his foot wound has been somewhat more moist and draining despite being treated with silver alginate. The patient also has noticed he has had increased edema of his bilateral lower extremities despite being on diuretics. The patient denies any associated pain. The patient denies any other associated wounds at this time. PAST MEDICAL HISTORY: Significant for coronary artery disease, sleep apnea, hypertension, hyperlipidemia, insulin-dependent diabetes, atrial fibrillation, COPD, CHF, previous toe amputations, neuropathy and chronic kidney disease. CURRENT MEDICATIONS: Multiple, I reviewed the patient's medication list. DRUG ALLERGIES: DILTIAZEM. SOCIAL HISTORY: The patient is a former smoker, quit several years ago, does not drink alcohol, currently is living in a skilled rehab unit, but prior to this, lived at home independently with his . FAMILY HISTORY: Not pertinent to current medical condition. REVIEW OF SYSTEMS: CONSTITUTIONAL: The patient denies fevers or chills. NEUROLOGIC: The patient with overall generalized weakness, but no isolated weakness in arms or legs. EYES: No complaints. ENT: No complaints. CARDIAC: The patient has lower extremity edema, but no chest pain or palpitations. RESPIRATORY: The patient has had shortness of breath with hypoxia, but no [facility] [address] [place] [address] CONSULTATION Name: TJMALOU Room #: 201-[facility] IN M.R.#: [id number] Admission: 01/26/19 Attend Phys: Shmuel Vázquez MD Discharge: Date of : 29 Report #: [id number] associated cough. GASTROINTESTINAL: The patient denies nausea, vomiting or abdominal pain. GENITOURINARY: The patient denies urgency or frequency. MUSCULOSKELETAL: No complaints. SKIN: The patient has a surgical wound to the right great toe. PHYSICAL EXAMINATION: VITAL SIGNS: Temperature 36.6, pulse 59, respirations 14, BP 124/54. GENERAL: This is an alert and oriented x 3, pleasant white male who is in absolutely no distress. HEENT: Normocephalic, atraumatic. Mucous membranes are moist. Pupils are round. Sclerae white. NECK: Supple, nontender. LUNGS: Slightly diminished breath sounds heard throughout. HEART: Irregular. ABDOMEN: Obese, soft, otherwise nontender. EXTREMITIES: The patient moves all extremities without difficulty. The patient has 2+ edema, bilateral lower extremities and evaluation of the left foot reveals surgical wound from the great toe amputation with sutures still in place. The wound itself is mildly macerated and somewhat dehiscent. It is a mix of approximately 80% slough, 20% granulation tissue. There is no evidence of any exposed bone. Periwound once again is mildly macerated. There is no significant undermining or tunneling. No other associated wounds are noted. NEUROLOGIC: Cranial nerves 2-12 grossly intact. Motor and sensory grossly intact. LABORATORY DATA: White count 13.8, hemoglobin 13.3, albumin 3.4. IMPRESSION: 1. Slowly healing surgical wound, left great toe amputation site, status post amputation for osteomyelitis. 2. Diabetes mellitus. 3. Venous insufficiency with peripheral edema. 4. Congestive heart failure. 5. Coronary artery disease. 6. Generalized debility. PLAN: At this time, we will continue with silver alginate to the surgical wound, having this dressed daily, cover with ABD and Kerlix. Have the patient elevate his legs as much as possible and continue to maximize the patient's oral protein supplementation for healing. Continue all other current medications and continue to follow the patient. <ELECTRONICALLY SIGNED> By: Chicho Linares MD 01/28/19 1427 0905 0306 Chicho Linares MD /nt
[2019-01-28 14:48] VITALS: BP 120/48
[2019-01-28] MEDS ORDERED: K-DUR 20 MEQ T20 MEQ PO (16:29)
[2019-01-28] MEDS ORDERED: TORSEMIDE20 MG PO (16:42)
[2019-01-28 20:35] VITALS: BP 140/53
[2019-01-29 04:45] VITALS: BP 118/57
[2019-01-29 07:30] VITALS: BP 123/52
[2019-01-29 11:00] VITALS: BP 118/57
== END 2019-01-29 14:13 | DRG 291 ==
LOC: ER 02:05 → 2N 03:25 → EROBS 03:25 → 2N 04:42
PROVIDERS: Emergency Medicine; Internal Medicine; Nurse Practitioner Family; ADMIT Internal Medicine
PROC: 5A09357 Assistance with Respiratory Ventilation, Less than 24 Consecutive Hours, Continuous Positive Airway Pressure (ICD-10-PCS; principal; 2019-01-26)
PROC: 5A09357 Assistance with Respiratory Ventilation, Less than 24 Consecutive Hours, Continuous Positive Airway Pressure (ICD-10-PCS; 2019-01-27)
DX: I13.0 Hypertensive heart and chronic kidney disease with heart failure and stage 1 through stage 4 chronic kidney disease, or unspecified chronic kidney disease (principal); I50.33 Acute on chronic diastolic (congestive) heart failure; J96.21 Acute and chronic respiratory failure with hypoxia; J81.0 Acute pulmonary edema; D68.59 Other primary thrombophilia; E44.0 Moderate protein-calorie malnutrition; M86.8X9 Other osteomyelitis, unspecified sites; L03.115 Cellulitis of right lower limb; I25.10 Atherosclerotic heart disease of native coronary artery without angina pectoris; E03.9 Hypothyroidism, unspecified; E78.5 Hyperlipidemia, unspecified; J44.9 Chronic obstructive pulmonary disease, unspecified; M19.90 Unspecified osteoarthritis, unspecified site; N18.3 Chronic kidney disease, stage 3 (moderate); I27.20 Pulmonary hypertension, unspecified; E11.22 Type 2 diabetes mellitus with diabetic chronic kidney disease; H11.32 Conjunctival hemorrhage, left eye; G47.33 Obstructive sleep apnea (adult) (pediatric); I48.2 Chronic atrial fibrillation; E87.6 Hypokalemia; I35.0 Nonrheumatic aortic (valve) stenosis; E11.69 Type 2 diabetes mellitus with other specified complication; I87.2 Venous insufficiency (chronic) (peripheral); E11.40 Type 2 diabetes mellitus with diabetic neuropathy, unspecified; Z68.36 Body mass index [BMI] 36.0-36.9, adult; Z79.4 Long term (current) use of insulin; Z89.422 Acquired absence of other left toe(s); Z89.411 Acquired absence of right great toe; Z88.8 Allergy status to other drugs, medicaments and biological substances; Z87.891 Personal history of nicotine dependence
CPT/HCPCS: 10081; 10797

== ENCOUNTER → 2019-02-13 | Outpatient (CLI) | payer OTHER ==
[~2019-02-13] MED LIST changes: +ACETAMINOP-CODEI5 ML PO; +FLOMAX0.4 MG PO; +K-DUR 20 MEQ T20 MEQ PO; +SSD CREAM 1% 5050 GM TOP; +TORSEMIDE20 MG PO
== END ==
LOC: ULTRA 11:47
DX: M86.8X7 Other osteomyelitis, ankle and foot (principal); I70.201 Unspecified atherosclerosis of native arteries of extremities, right leg; I77.1 Stricture of artery

== ENCOUNTER → 2019-02-17 | Outpatient (CLI) | payer OTHER | LOC: HYPER 07:18 | DX: T87.81 Dehiscence of amputation stump (principal); E11.621 Type 2 diabetes mellitus with foot ulcer; L97.521 Non-pressure chronic ulcer of other part of left foot limited to breakdown of skin; S81.812D Laceration without foreign body, left lower leg, subsequent encounter; L84 Corns and callosities; E11.36 Type 2 diabetes mellitus with diabetic cataract; E11.69 Type 2 diabetes mellitus with other specified complication; M86.8X8 Other osteomyelitis, other site; I11.0 Hypertensive heart disease with heart failure; I50.9 Heart failure, unspecified; E03.9 Hypothyroidism, unspecified; G47.30 Sleep apnea, unspecified; E78.00 Pure hypercholesterolemia, unspecified; M10.9 Gout, unspecified; I25.10 Atherosclerotic heart disease of native coronary artery without angina pectoris; M19.90 Unspecified osteoarthritis, unspecified site; R29.6 Repeated falls; J44.9 Chronic obstructive pulmonary disease, unspecified; Z87.891 Personal history of nicotine dependence; Z79.4 Long term (current) use of insulin; Z89.411 Acquired absence of right great toe; Z85.51 Personal history of malignant neoplasm of bladder; X58.XXXD Exposure to other specified factors, subsequent encounter; Y83.5 Amputation of limb(s) as the cause of abnormal reaction of the patient, or of later complication, without mention of misadventure at the time of the procedure ==

== ENCOUNTER → 2019-02-19 | Outpatient (CLI) | payer OTHER ==
[~2019-02-19] VITALS: Ht 167.6 cm; Wt 112.5 kg
[2019-02-19 12:22] VITALS: BP 122/42
[2019-02-19 12:43] LABS: HEMOGLOBIN 14.5 gm/dL (14.0-18.0); MCH 31.6 pg (26.0-34.0); MCHC 32.1 g/dL (28.0-37.0); MCV 98.4 fL (80.0-100.0); RBC 4.58 mil/uL (4.50-6.00); RDW 14.9 % (10.5-14.5)
[2019-02-19 12:56] LABS: PROTIME 9.9 Seconds (9.3-11.4)
[2019-02-19 12:58] LABS: CALCIUM 9.7 mg/dL (8.5-10.1); CREATININE 1.7 mg/dL (0.7-1.3)
== END | disposition home or self-care (01) ==
LOC: CATH 10:39
PROVIDERS: Nuclear Medicine Nuclear Cardiology
DX: I70.238 Atherosclerosis of native arteries of right leg with ulceration of other part of lower leg (principal); I70.1 Atherosclerosis of renal artery; I11.0 Hypertensive heart disease with heart failure; I50.9 Heart failure, unspecified; I25.10 Atherosclerotic heart disease of native coronary artery without angina pectoris; E11.9 Type 2 diabetes mellitus without complications; I25.2 Old myocardial infarction; I48.91 Unspecified atrial fibrillation; E66.09 Other obesity due to excess calories; I42.9 Cardiomyopathy, unspecified; E78.5 Hyperlipidemia, unspecified; J43.9 Emphysema, unspecified; G47.33 Obstructive sleep apnea (adult) (pediatric); Z79.4 Long term (current) use of insulin; Z79.899 Other long term (current) drug therapy; Z98.890 Other specified postprocedural states; Z88.8 Allergy status to other drugs, medicaments and biological substances; Z79.01 Long term (current) use of anticoagulants

== ENCOUNTER 2019-03-07 17:57 | Inpatient (IN) | payer OTHER ==
[~2019-03-07] VITALS: Ht 177.8 cm; Wt 117.9 kg
[2019-03-07 17:59] VITALS: BP 123/38; BP 124/53
[2019-03-07] MEDS ORDERED: COLACE100 MG PO (18:33)
[2019-03-07] MEDS ORDERED: FLOMAX0.4 MG PO (18:34)
[2019-03-07] MEDS ORDERED: LOSARTAN POTASS50 MG PO (18:35)
[2019-03-07] MEDS ORDERED: LOPRESSOR50 MG PO (18:37)
[2019-03-07] MEDS ORDERED: CENTRUM SILVER1 EAC2 PO (18:38)
[2019-03-07] MEDS ORDERED: KLOR-CON 1010 MEQ PO (18:39)
[2019-03-07] MEDS ORDERED: DEMADEX20 MG PO (18:40)
[2019-03-07 18:46] LABS: ABSOLUTE NEUTROPHILS 13.7 thou/uL (1.4-8.2); BASOPHILS 0.6 % (0.0-2.0); EOSINOPHILS 0.8 % (0.0-3.0); HEMATOCRIT 31.8 % (42.0-52.0); HEMOGLOBIN 10.3 gm/dL (14.0-18.0); LYMPHOCYTES 9.2 % (24.0-44.0); MCH 31.7 pg (26.0-34.0); MCHC 32.4 g/dL (28.0-37.0); PLATELET COUNT 306 thou/uL (150-400); POLYS 79.4 % (36.0-66.0); RBC 3.24 mil/uL (4.50-6.00); RDW 15.4 % (10.5-14.5); WBC 17.2 thou/uL (4.0-11.0)
[2019-03-07 18:54] LABS: CALCIUM 9.2 mg/dL (8.5-10.1); CREATININE 3.7 mg/dL (0.7-1.3)
[2019-03-07 18:56] LABS: POTASSIUM 6.7 mmol/L (3.5-5.1)
[2019-03-07 19:01] LABS: PROTIME 10.4 Seconds (9.3-11.4)
[2019-03-07 21:19] VITALS: BP 125/48
[2019-03-07 22:17] VITALS: BP 84/46
[2019-03-07 22:43] LABS: HEMATOCRIT 29.6 % (42.0-52.0); HEMOGLOBIN 9.7 gm/dL (14.0-18.0)
[2019-03-07 22:53] LABS: ALBUMIN 3.2 g/dL (3.4-5.0); DIRECT BILIRUBIN 0.2 mg/dL (<0.1-0.3); MAGNESIUM 2.9 mg/dL (1.8-2.4); TOTAL BILIRUBIN 0.4 mg/dL (<0.1-1.0); TOTAL PROTEIN 6.9 g/dL (6.4-8.2)
[2019-03-08 00:48] VITALS: BP 98/45
[2019-03-08 01:27] LABS: URINE BILIRUBIN NEGATIVE (Negative); URINE BLOOD NEGATIVE (Negative); URINE CLARITY CLEAR; URINE COLOR YELLOW; URINE GLUCOSE-RANDOM* NEGATIVE (Negative); URINE KETONES NEGATIVE (Negative); URINE LEUKOCYTES-REFLEX NEGATIVE (Negative); URINE NITRITE-REFLEX NEGATIVE (Negative); URINE PROTEIN (DIPSTICK) NEGATIVE (Negative); URINE SPECIFIC GRAVITY 1.015 (1.005-1.035); URINE UROBILINOGEN 0.2 E.U./dl (0.2-1.0)
[2019-03-08] MEDS ORDERED: ARGINAID POWDE1 EACH PO (03:04)
[2019-03-08] MEDS ORDERED: CIPRO500 MG PO (03:05)
[2019-03-08] MEDS ORDERED: FLOMAX0.4 MG PO (03:05)
[2019-03-08] MEDS ORDERED: PROTEIN POWDER480 GM PO (03:07)
[2019-03-08] MEDS ORDERED: SANTYL OINTMENT30 G1 TP (03:08)
--- NOTE | 2019-03-08 04:24 | NUR ---
PT. ARRIVED AT FLOOR AROUND 2230; PT. AOX4; SBP ON THE 80s; NC 2L; TEMPERATURE ON THE 100s; MOLD REPAIRER TONIFIED; ORDERS RECEIVED; FLUIDS STARTED; ADMISSION PERFORMED WITH PT'S DAUGHTERS HISTORY INFORMATION; HR AFIB; CONTROL; THROUGH THE NIGHT SBP ON THE LATES 80s-90s; MOLD REPAIRER NOTIFIED; NO C/O HEADACHE; INCREASE SOB; C/O PAIN OVER L. LEG; DURING ASSESSMENT BRUISINGS NOTICED OVER L. SIDE BACK & PERINEAL AREA; NO HEMATOMA PRESENT; R. FOOT ASSESSED; DRESSING CHANGED; PULSE PRESENT WITH DOPPLER; PT. ABLE TO RES THROUGH THE NIGTH WITH EYES CLOSED; HAD TWO V-TACH EPISODES; MOLD REPAIRER NOTIFIED; MONITORING; ASSESSMENT CHARGED; FOLLOWING POC; WILL PASS ON REPORT.
[2019-03-08 04:45] VITALS: BP 85/60
[2019-03-08 05:12] LABS: HEMATOCRIT 28.8 % (42.0-52.0); HEMOGLOBIN 9.5 gm/dL (14.0-18.0); MCH 32.1 pg (26.0-34.0); MCHC 33.1 g/dL (28.0-37.0); RBC 2.97 mil/uL (4.50-6.00); RDW 14.8 % (10.5-14.5); WBC 12.6 thou/uL (4.0-11.0)
[2019-03-08 05:21] LABS: CALCIUM 8.3 mg/dL (8.5-10.1); CREATININE 3.3 mg/dL (0.7-1.3); POTASSIUM 4.7 mmol/L (3.5-5.1)
[2019-03-08 05:29] VITALS: BP 101/10; BP 101/40
[2019-03-08 11:51] VITALS: BP 102/44
--- NOTE | 2019-03-08 12:28 | EKG ---
[address] [place] [place] [address] ELECTROCARDIOGRAM REPORT Name: TJMALOU Room #: 215-P ADM IN M.R.#: [id number] Admission: 03/07/19 Attend Phys: Jaswinder Meeks MD Discharge: Date of : 29 Report #: [id number] THIS REPORT FOR: //name// [facility] ED Test Date: 2019-03-07 Test Time: 18:08:02 Pat Name: MALOU SPENCER Department: Room: [facility] Gender: M Maintenance Person: STAN : 1930 Requested By: Jagjit Beck Order Number: [id number] MD: Yousif Najera Measurements Intervals [place] Rate: 72 P: DC: QRS: 15 QRSD: 101 T: 37 QT: 433 QTc: 474 Interpretive Statements Atrial fibrillation Poor R wave progression Compared to ECG 01/27/2019 07:29:05 premature ventricular complexes are no longer present Electronically Signed On 03-08-2019 12:27:59 CDT by Yousif Najera [email or web address] <ELECTRONICALLY SIGNED> By: Yousif Najera MD, [facility] 03/08/19 1227 07 07 Yousif Najera MD, [facility] /EPI
[2019-03-08 16:27] VITALS: BP 117/59
[2019-03-08 20:01] VITALS: BP 135/71
--- NOTE | 2019-03-08 20:02 | NUR ---
ASSUMED CARE AT SHIFT CHANGE ALERT AND ORINTED SELF AND FORGETFUL. BP WAS LOW PLEASE SEE PCI. MD NOTIFIED AND BP WNL AT 1645, AFIB ON THE MONITOR AND DENIES ANY CP OR DISCOMFORT. PATIENT FAMILY AT BEDSIDE, AND QUESTIONS AND CONCERNS ASNWERED AND THIS NURSE ADVICED FAMILY TO COME IN TH MORNING TO TALK TO DOCTORS. WILL CONTINUE WITH POC.
[2019-03-09 04:40] VITALS: BP 120/45
[2019-03-09 05:35] LABS: HEMATOCRIT 25.2 % (42.0-52.0); HEMOGLOBIN 8.3 gm/dL (14.0-18.0); MCHC 32.8 g/dL (28.0-37.0); MCV 97.5 fL (80.0-100.0); RBC 2.59 mil/uL (4.50-6.00); RDW 15.2 % (10.5-14.5); WBC 12.2 thou/uL (4.0-11.0)
[2019-03-09 05:52] LABS: CALCIUM 8.8 mg/dL (8.5-10.1); MAGNESIUM 2.5 mg/dL (1.8-2.4); POTASSIUM 4.5 mmol/L (3.5-5.1)
[2019-03-09 07:22] VITALS: BP 98/39
--- NOTE | 2019-03-09 07:41 | NUR ---
PT RESTING ON AND OFF THRU THE NOC CALLS OUT FOR ASSIST, DOESNT USE CALL LIGHT, BED ALARM ON, NO C/O PAIN, VSS, MACDONALD WITH CLEAR YELLOW URINE, REPORT GIVEN TO NEXT SHIFT TO CON'T TO MONITOR PER PPOC.
--- NOTE | 2019-03-09 08:19 | HC ---
[facility] [place] [address] CONSULTATION Name: TJMALOU Sophy Room #: 215-P ADM IN .R.#: [id number] Admission: 03/07/19 Attend Phys: Jaswinder Meeks MD Discharge: Date of : 29 Report #: [id number] THIS REPORT FOR: //name// CC: ARMANDO physician/PCP Jaswinder Meeks DATE OF SERVICE: 03/08/2019 REASON FOR CONSULTATION: Atrial fibrillation. HISTORY OF PRESENT ILLNESS: The patient is an 88-year-old gentleman with history of permanent atrial fibrillation, chronic kidney disease, severe pulmonary hypertension, diabetes and peripheral vascular disease. He has had problems recently with a right toe osteomyelitis and delayed healing. He was recently found to have severe progression of his peripheral disease and underwent aortography with runoff on February 19. This was with a left groin approach. He underwent right superficial femoral artery atherectomy and stent placement and right peroneal artery atherectomy and drug-eluting stent placement. He reports slow improvement in the foot wound. Now, presents with generalized weakness and left thigh pain and swelling. He was seen in the Emergency Department where he was found to have a sizable thigh hematoma. His evaluation has included a CT of the abdomen and pelvis, which demonstrated no evidence of retroperitoneal hematoma or fluid collection. Additionally, he was found to be in acute renal failure. His baseline creatinine generally is around 1.7-2.0. On admission, his creatinine was 3.7. He denies chest pain or pressure. He denies orthopnea or paroxysmal nocturnal dyspnea. He has had no recent lower extremity edema. PAST MEDICAL HISTORY: Past history and medical records have been reviewed and include history of peripheral vascular disease, permanent atrial fibrillation, severe pulmonary hypertension, chronic kidney disease, hypertension and dyslipidemia. ALLERGIES: HE HAS MULTIPLE ALLERGIES, WHICH ARE OUTLINED IN THE MEDICAL RECORD. MEDICATIONS: Include Aldactone 25 mg twice daily, oxygen, Flomax 0.4 mg daily, losartan 50 mg daily, metoprolol 50 mg twice daily, potassium 10 mEq daily, torsemide 40 mg twice daily and levothyroxine 175 mcg daily. SOCIAL HISTORY: He is a former smoker. He has most recently been at the [facility]. FAMILY HISTORY: Unremarkable for premature coronary artery disease. REVIEW OF SYSTEMS: All systems negative except as that noted above. [address] [address] CONSULTATION Name: MALOU SPENCER Sophy Room #: 215-P [facility] IN M.R.#: [id number] Admission: 03/07/19 Attend Phys: Jaswinder Meeks MD Discharge: Date of : 29 Report #: [id number] PHYSICAL EXAMINATION: GENERAL: A pleasant gentleman who is alert and in no distress. VITAL SIGNS: Blood pressure is 101/40, heart rate is 78 and irregular, temperature is 100.4 degrees. HEENT: There are neither xanthelasma, subcutaneous xanthomata, oral mucosal or digital cyanosis or kyphoscoliosis present. CHEST: Clear to auscultation and percussion. CARDIAC: Irregular rate and rhythm with normal S1 and increased pulmonic closure sound. ABDOMEN: Soft and obese. EXTREMITIES: Without peripheral edema. There is a fairly large left thigh hematoma with medial leg ecchymosis. NEUROLOGIC: He is alert with a nonfocal exam. LABORATORY DATA: Sodium is 139, potassium 4.7, creatinine 3.7. White count 12.6, hemoglobin 9.5, his hemoglobin was 14 on February 19. EKG: Atrial fibrillation with a controlled ventricular response. IMPRESSION: 1. Permanent atrial fibrillation. 2. Left thigh hematoma; anemia related to acute blood loss. 3. Chronic diastolic heart failure; ejection fraction 55%. 4. Severe pulmonary hypertension. 5. Chronic obstructive pulmonary disease; obstructive sleep apnea, on CPAP. 6. Acute kidney injury on top of chronic kidney disease stage III. 7. Diabetes type 2. 8. Osteomyelitis. 9. Mild aortic stenosis. 10. Hypercoagulable. RECOMMENDATIONS: 1. Left groin duplex to rule out pseudoaneurysm. 2. Hold diuretics for now. I suspect his acute kidney injury is related to intravascular volume depletion. 3. Hold anticoagulation for now pending resolution of his hematoma. <ELECTRONICALLY SIGNED> By: Yousif Najera MD, FACC 03/09/19818 2 99 Yousif Najera MD, FACC /nt
--- NOTE | 2019-03-09 08:50 | EKG ---
[address] [address] ELECTROCARDIOGRAM REPORT Name: TJMALOU Room #: 215-P ADM IN M.R.#: [id number] Admission: 03/07/19 Attend Phys: Jaswinder Meeks MD Discharge: Date of : 29 Report #: [id number] THIS REPORT FOR: //name// [facility] Test Date: 2019-03-09 Test Time: 07:49:44 Pat Name: MALOU SPENCER Department: Room: 215 P Gender: M Quality Control Tester: JANI : 1930 Requested By: Yousif Najera Order Number: [id number] MD: Yousif Najera Measurements Intervals [place] Rate: 84 P: GA: QRS: -15 QRSD: 94 T: 91 QT: 360 QTc: 426 Interpretive Statements Atrial fibrillation Inferior infarct, old Poor R wave progression Compared to ECG 03/07/2019 18:08:02 No significant change was found Electronically Signed On 03-09-2019 8:50:11 CDT by Yousif Najera [email or web address] <ELECTRONICALLY SIGNED> By: Yousif Najera MD, [facility] 03/09/19 0850 0749 Yousif Najera MD, [facility] /EPI
[2019-03-09 09:56] VITALS: BP 124/55
[2019-03-09 10:58] VITALS: BP 139/40
--- NOTE | 2019-03-09 11:39 | NUR ---
patient admits with SOA. He has been at [facility] [place], dc Saturday to home with HH from [facility] and readmits with SOA. Patient resides at home alone, uses walker and or cane for ambulation. He has fallen at home since ne. Dtr at bedside and reports "he cannot return home from hospital stay, needs skilled care." patient has been in/out of skilled post acute care since December 03. He has been at [facility] in past and recently [facility]. Dtr reports referral to [facility] but she was working with diety at facility with alternate menu to assist patient with renal/low sodium. Dtr given [employer] insurance post acute list if she choses another facility. Referral to [facility].
[2019-03-09 15:23] VITALS: BP 133/50
--- NOTE | 2019-03-09 15:24 | NUR ---
FAXED REFERRAL TO [facility] SPOKE WITH MILO IN ADM SHE RECEIVED AND CAN ACCEPT AT DISCHARGE. DCP TO FOLLOW.
--- NOTE | 2019-03-09 17:16 | HC ---
[facility] [place] [address] CONSULTATION Name: TJMALOU Sophy Room #: 215-P ADM IN M.R.#: [id number] Admission: 03/07/19 Attend Phys: Jaswinder Meeks MD Discharge: Date of : 29 Report #: [id number] THIS REPORT FOR: //name// CC: ARMANDO physician/PCP Jaswinder Meeks DATE OF SERVICE: 03/08/2019 INFECTIOUS DISEASES CONSULTATION REASON FOR CONSULTATION: Evaluate right lower extremity wound infection with first toe osteomyelitis. HISTORY OF PRESENT ILLNESS: The patient is an 88-year-old who has been on approximately a 3-month treatment course for osteomyelitis of his right great toe, status post ray amputation. He has had peripheral vascular disease and underwent revascularization by Interventional Radiology several weeks ago. He completed his course of Levaquin middle of last week. He was discharged from skilled unit and was at home when he had worsening edema of both lower extremities. He fell 3 times while at home. He hit his foot and started bleeding profusely. He was brought into the Emergency Room. He had temperature up to 38 degrees. He has mild leukocytosis. He has had no increased pain. There has been some discomfort in his left thigh. Unclear if this is related to his fall. He had an ultrasound, which showed no evidence of pseudoaneurysm from his previous catheterization. The bleeding has subsided. He has had no cough or sputum production. Denies any chest pain. No chills or sweats. He has been more lethargic than his normal. Appetite has been reasonable. No nausea, vomiting or diarrhea. He has had no dysuria or frequency. Following admission, he was given diuretics and he has lost some peripheral edema. ALLERGIES: SYMBICORT GEMFIBROZIL, DILTIAZEM, FLUTICASONE, FORMOTEROL, SALMETEROL, SIMVASTATIN, PRECOSE, MIYA INHIBITORS, BEXTRA, ACTOS, SPIRIVA. MEDICATIONS: As reviewed including clindamycin was added yesterday. Also, Eliquis, insulin, Caltrate, vitamin D, Brovana, magnesium, Aldactone, tamsulosin, gabapentin, losartan, metoprolol, potassium, torsemide, Synthroid, Voltaren gel. PAST MEDICAL HISTORY: Peripheral vascular disease, coronary artery disease, atrial fibrillation, congestive heart failure with cardiomyopathy, hypertension, hyperlipidemia, emphysema, diabetes, obstructive sleep apnea, right great toe amputation with ray amputation on 12/20/2018, right femoral artery stent 2 weeks ago, chronic kidney disease. FAMILY HISTORY: Noncontributory. [address] [address] CONSULTATION Name: MALOU SPENCER Room #: 215-P [facility] IN .R.#: [id number] Admission: 03/07/19 Attend Phys: Jaswinder Meeks MD Discharge: Date of : 29 Report #: [id number] SOCIAL HISTORY: Nonsmoker, no significant alcohol intake. REVIEW OF SYSTEMS: Ten-point review was negative other than what is described above. PHYSICAL EXAMINATION: VITAL SIGNS: He was afebrile and hemodynamically stable. GENERAL: He was alert and cooperative, then following examination, he fell asleep and he was appropriate, but very lethargic. SKIN: Without rash or decubitus. No palpable adenopathy. HEENT: Eyes, without scleral icterus. Mouth without mucositis. NECK: Supple. LUNGS: Clear. HEART: Regular, without gallop or murmur. ABDOMEN: Obese, soft, nontender, no hepatosplenomegaly or mass. Had mild tenderness in the left groin region. No drainage from his previous puncture site. No pulsatile masses. Mild tenderness in his left anterior thigh without erythema or fluctuance. He had mild ecchymosis in the medial upper thigh and pubic region. EXTREMITIES: A 2+ edema in his both lower extremities. NEUROLOGIC: Cranial nerves intact. Strength was symmetric in bilateral lower extremities. Sensation intact. LABORATORY STUDIES: CRP 135, creatinine 3.3, baseline of 1.7. Hemoglobin 9.5, WBC 12.6, platelet count 234,000. Liver function test normal. CT abdomen and pelvis without contrast, no diagnostic changes. Ultrasound of the left groin, no pseudoaneurysm evident. Renal ultrasound, no hydronephrosis, nonobstructing calculus in the right kidney. Previous cultures from 12/20/2018, right first ray amputation site, prepatellar, species Enterococcus faecalis, which was penicillin sensitive and Enterobacter cloacae resistant to tetracycline, cefuroxime, Augmentin, otherwise sensitive. Chest x-ray, no acute pulmonary infiltrates. IMPRESSION: Opomy-ji-wrwwtlu kidney disease with significant peripheral edema and hyperkalemia. He is on anticoagulation and had further bleeding into his right foot. He has had 3 months of combination IV followed by oral antibiotic therapy for this right foot. He has been revascularized with stenting. We will plan to continue his antibiotic coverage and putting back on quinolone. We will go with Levaquin at this time. He will continue with localized wound care to control any bleeding. The patient should wear a surgical shoe each time he is out of bed. <ELECTRONICALLY SIGNED> By: Willam Jarquin MD 03/09/19 1716 1449 0243 Willam Jarquin MD /jacquie
--- NOTE | 2019-03-09 18:34 | NUR ---
ASSUMED CARE PT AT SHIFT CHANGE. ASSESSMENTS CHARTED. MEDS GIVEN PER AUG. PT ALERT AND ORIENTED, VSS, O2 SATS WNL ON 2L. NO C/P SOB. DENIES PAIN. PT WORKED WITH PT THIS SHIFT, INCREASED HR WITH RUNS OF VTACH NOTED AT REST AND WITH ACTIVITY. PT ASYMPTOMATIC. PHYSICIAN AND CARDIOLOGY NOTIFIED. NO NEW ORDERS RECEIVED. WOUND CARE PERFORMED PER WOUND CARE ORDERS. CULTURE SENT FOR LAB. FAMILY VISITED WITH PT THIS SHIFT. DENIES NEEDS AT THIS TIME. CONTINUING TO MONITOR.
[2019-03-09 19:54] VITALS: BP 123/47
--- NOTE | 2019-03-10 03:38 | NUR ---
ASSESSMENT DOCUMENTED.PT BEEN RESTING IN NO ACUTE DISTRESS.A/OX4.VSS.DENIES PAIN..RIGHT FOOT DRESSING CDI.ELEVATED MISSY LEGS WITH PILLOWS.RENAE SALVADOR.PT TO POSSIBLY DISCHARGE TO REHAB TODAY.WILL CONT TO MONITOR PER POC.
[2019-03-10 04:45] VITALS: BP 151/61
[2019-03-10 05:28] LABS: HEMATOCRIT 24.8 % (42.0-52.0); HEMOGLOBIN 8.1 gm/dL (14.0-18.0); MCH 31.8 pg (26.0-34.0); MCHC 32.4 g/dL (28.0-37.0); MCV 98.3 fL (80.0-100.0); RBC 2.53 mil/uL (4.50-6.00); RDW 15.6 % (10.5-14.5); WBC 11.3 thou/uL (4.0-11.0)
[2019-03-10 05:46] LABS: ALBUMIN 2.7 g/dL (3.4-5.0); CALCIUM 8.5 mg/dL (8.5-10.1); CREATININE 1.7 mg/dL (0.7-1.3); PHOSPHORUS 2.7 mg/dL (2.5-4.9); POTASSIUM 4.5 mmol/L (3.5-5.1)
[2019-03-10 08:00] VITALS: BP 131/62
[2019-03-10 11:32] VITALS: BP 140/56
--- NOTE | 2019-03-10 15:44 | NUR ---
[facility] accepting of patient. Sp with patient and dtr at bedside. Different dtr then admission. Dtr reports its her understanding from phys that patient will remain here in hospital. Casemgt reports he will remain until stable for dc, yes. Dtr reports no he will remain here until he is ready to dc home. Discussed post acute care with patient and dtr. Await phys determination of medical stabilty for dc planning.
--- NOTE | 2019-03-10 16:48 | NUR ---
REPORT GIVEN TO BRIANNA MORALES.
[2019-03-10 17:04] VITALS: BP 123/65
--- NOTE | 2019-03-10 19:17 | NUR ---
ASSUMED CARE OF PT AFTER DAY NURSE LEFT, INTRO'D SELF, PT A&0X4, ALTERNATING WITH DEMENTIA. FAMILY AT BEDSIDE. ADM TWO MEDS AND REMOVED HIM OFF BED AMES. GAVE REPORT TO NIGHT RN AND FIXED PT'S CALL LIGHT.
[2019-03-10 19:20] VITALS: BP 122/53
[2019-03-11 04:45] VITALS: BP 124/61
--- NOTE | 2019-03-11 05:02 | NUR ---
ASSESSMENT DOCUMENTED.PT BEEN RESTING IN NO ACUTE DISTRESS.A/OX3 WITH INTERMITTENT CONFUSION.PT YELLS OUT CALL OUT LOUDLY FOR THE STAFF.MUTIPLE NEEDS THIS SHIFT.PT HAD LOOSE BOWELS X3 THIS SHIFT,YELLOW TRACE TO SMALL AMOUNT OF STOOL.RENAE SALVADOR.VTACH RUNS ON MONITOR,PT NOT SYMPTOMATIC.PT DENIES PAIN OR ANY FURTHER DISTRESS
[2019-03-11 05:07] LABS: HEMATOCRIT 25.9 % (42.0-52.0); HEMOGLOBIN 8.3 gm/dL (14.0-18.0); MCHC 32.3 g/dL (28.0-37.0); MCV 99.1 fL (80.0-100.0); RBC 2.61 mil/uL (4.50-6.00); RDW 15.8 % (10.5-14.5); WBC 14.9 thou/uL (4.0-11.0)
[2019-03-11 05:15] LABS: ALBUMIN 2.8 g/dL (3.4-5.0); CALCIUM 9.3 mg/dL (8.5-10.1); CREATININE 1.5 mg/dL (0.7-1.3); PHOSPHORUS 2.6 mg/dL (2.5-4.9); POTASSIUM 4.4 mmol/L (3.5-5.1)
--- NOTE | 2019-03-11 06:08 | NUR ---
PT PASSING CLEAR LIQUID WITH SOME MUCUS FROM RECTUM.CHOWDHURY NOTED.O2 [id number] PNC,MACDONALD DD.WILL CONT TO MONITOR PER POC.
[2019-03-11 07:33] VITALS: BP 139/66
[2019-03-11 11:49] VITALS: BP 106/51
--- NOTE | 2019-03-11 12:42 | NUR ---
[facility] plan for [facility]. patient started on Amerio drip today no stable for dc. Update HC reports.
[2019-03-11 16:25] VITALS: BP 125/58
--- NOTE | 2019-03-11 16:34 | NUR ---
ASSUMED CARE OF PT AT SHIFT CHANGE. ASSESSMENTS CHARTED. MEDS GIVEN PER AUG. PT ALERT AND ORIENTED, FORGETFUL AT TIMES. UP MAX ASSIST, PT WORKED [facility] PHYS THERAPY THIS SHIFT--DIFFICULT TO GET PT UP. O2 SATS WNL ON 2L. PT SOB WITH ACTIVITY WITH PHYS THERAPY AND WHEN GETTING PT UP TO COMMODE. RECOVERED WITH REST. AFIB ON MONITOR WITH FREQUENT PVCS, FREQUENT RUNS VTACH. CARDIOLOGY NOTIFIED, ORDERS RECEIVED FOR AMIO BOLU AND AMIO GTT. TELEPHONE ORDERS RECEIVED TO KEEP AMIO GTT 1MG OVERNIGHT UNITL TOLD TO STOP. FAMILY VISITED WITH PT THIS SHIFT. URINE OUTPUT ADEQUATE, NO BM THIS SHIFT. APPETITE LESS THAN ADEQUATE. WOUND CARE PERFORMED PER WOUND CARE ORDERS. WOUND CULTURE RESULTS BACK-- SEE RESULTS. DR WOODARD NOTIFIED, NO NEW ORDERS RECEIVED. DENIES NEEDS AT THIS TIME. WILL CONTINUE TO MONITOR.
[2019-03-11 19:11] VITALS: BP 125/57
--- NOTE | 2019-03-12 03:22 | NUR ---
RECEIVED PT'S CARE AT 1930; PT. ON BED; AWAKE; ALERT; DURING ASSESSMENT PT. ALERT TO PERSON; PLACE & MONTH; NO C/O PAIN; HS MEDICATION GIVEN; NO INSULIN REPLACEMENT NEEDED; CHECK CHARTING; EDUCATED ABOUT THE IMPORTANCE OF TURNING FROM SIDE TO SIDE; ST. UNDERSTANDING; THROUGH THE NIGHT PT. HAS SEVERAL V-TACH EPISODES; PHYSICIANS AWARE; PT. ON AMMIODORENE GTT AT 1ML/MIN; PER REPORT; MOST MANTAIN THIS RATE UNTIL NEW NOTIFICATION; ABLE TO REST THROUGH THE NIGHT WITH EYES CLOSED; NO C/O CP; SOB; HEADACHE DURING ANY EPISODE OF V-TACH; PT. RESTING; TURN FROM SIDE TO SIDE; MONITORING; ASSESMENT CHARGED; FOLLOWING POC; WILL PASS ON REPORT.
[2019-03-12 04:24] VITALS: BP 106/50
[2019-03-12 05:51] LABS: HEMATOCRIT 23.8 % (42.0-52.0); HEMOGLOBIN 7.7 gm/dL (14.0-18.0); MCH 32.2 pg (26.0-34.0); MCHC 32.2 g/dL (28.0-37.0); MCV 100.1 fL (80.0-100.0); RBC 2.38 mil/uL (4.50-6.00); RDW 15.6 % (10.5-14.5); WBC 13.8 thou/uL (4.0-11.0)
[2019-03-12 06:12] LABS: ALBUMIN 2.6 g/dL (3.4-5.0); CALCIUM 8.7 mg/dL (8.5-10.1); CREATININE 1.7 mg/dL (0.7-1.3); PHOSPHORUS 3.6 mg/dL (2.5-4.9); POTASSIUM 4.1 mmol/L (3.5-5.1)
[2019-03-12 07:58] VITALS: BP 104/48
[2019-03-12 12:35] VITALS: BP 119/59
--- NOTE | 2019-03-12 12:43 | NUR ---
Possible dc to snf today pending cardiology clearance and ins auth. Amnio gtt dc'd. [facility] updated and they are working on ins auth for snf admission later today. Dtr was here earlier and will be back this afternoon. She has spoken to the attending regarding the pt's poc and dc plan. Chart copy in progress. Dc materials planner/production planner to fax any updates from today to [facility]. Will follow.
--- NOTE | 2019-03-12 13:06 | NUR ---
Assess for length of stay. Admitted with weakness, afib. Also blood loss anemia, right foot wound dehiscence from recent surgical incision, and left groin hematoma. On IV Fe, diuretic and diabetic medications. Appeite is good, depending on foods served. Able to obtain list of food preferences. Wts generally closer to 250 lb. Currently wt is 260 lb. Low nutrition risk
--- NOTE | 2019-03-12 15:32 | NUR ---
FAXED CLINICAL UPDATE TO [facility] SPOKE WITH MILO IN ADM SHE RECEIVED UPDATE AND ALSO RECEIVED AUTH PT TO DC TOMORROW TO FACILITY. DCP TO FOLLOW.
[2019-03-12 16:15] VITALS: BP 115/54
[2019-03-12 19:45] VITALS: BP 120/60
--- NOTE | 2019-03-12 20:25 | NUR ---
ASSUMED CARE AT 1300, SHIFT ASSESSMENT DONE, VSS. REPORTED PAIN, PRN PAIN MEDS GIVEN. SSI, COVERGE NEEDED, NPH GIVEN. WILL CONTINUE TO ASSESS AND ASSISTI WITH ADLs NEEDED.
[2019-03-13 04:45] VITALS: BP 119/46
--- NOTE | 2019-03-13 04:50 | NUR ---
RECEIVED PT'S CARE AT 1900; PT. ON BED; ALERT; AWAKE; RELATIVES AT THE BED SIDE; DURING ASSESSMENT PT. ALERT TO PERSON; MONTH; PLACE; ST. DECREASED PAIN AFTER TAKING PRN PAIN MEDICATION EARLIER; HS MEDICATION GIVEN; EDUCATED ABOUT THE IMPORTANCE OF TURNING FROM SIDE TO SIDE; ST. UNDERSTANDING; NEEDS REINFORCEMENT; AROUND [address] FEELING THE NEED OF HAVING A BM; BED SIDE COMMODE USED; HAD BM; PER TECH REPORT VOID ON BED SIDE COMMODE; MONITORING; ABLE TO REST THROUGH THE NIGHT WITH EYES CLOSED; NO V-TACH EVENTS; ASSESSMENT CHARGED; FOLLOWING POC; WILL PASS ON REPORT.
[2019-03-13 07:24] VITALS: BP 102/46
[2019-03-13 09:12] LABS: HEMATOCRIT 27.1 % (42.0-52.0); HEMOGLOBIN 8.7 gm/dL (14.0-18.0); MCHC 32.1 g/dL (28.0-37.0); MCV 99.7 fL (80.0-100.0); RBC 2.72 mil/uL (4.50-6.00); RDW 16.1 % (10.5-14.5); WBC 14.7 thou/uL (4.0-11.0)
[2019-03-13 09:19] LABS: CALCIUM 9.1 mg/dL (8.5-10.1); CREATININE 1.7 mg/dL (0.7-1.3); POTASSIUM 3.9 mmol/L (3.5-5.1)
[2019-03-13 10:59] VITALS: BP 120/54
--- NOTE | 2019-03-13 11:53 | NUR ---
[facility]ED [facility]ERRAL [facility] SPOKE WITH ROSCOE IN ADM SHE RECEIVED REFERRAL AND WILL REVIEW. DCP TO FOLLOW.
[2019-03-13] MEDS ORDERED: DEMADEX20 MG PO (11:55)
[2019-03-13] MEDS ORDERED: PACERONE 200 M200 M1 PO (11:55)
--- NOTE | 2019-03-13 12:55 | NUR ---
Pt dc ready for snf today. [facility]house Attendant visited with the pt's dtr Ynes at bedside. She indicates that they have decided they do not want the pt returning to [facility] and want to consider other SNF's. [facility] reviewed. [facility] a [facility]. Dtr went to tour and referral faxed by the dc habitat conservation planner. Call back rec'd from Ynes and she indicates that they want to go to [facility]. The pt's sister lives there in hospital for special care apt and can visit him daily. Talked with kimberly in admissions. They can accept. Insurance auth obtained from [facility] toro and confirmed with Kimberly: #[id number] reveiw due on 03/18. Kimberly to arrange w/c van with o2 for pickup betwn 2:30 and 4pm today. Dtr Ynes updated along with nursing. Dc habitat conservation planner to fax final orders and nursing to call report. Chart copy in progress to be sent with the pt. His home cpap needs to be sent with him.
[2019-03-13] MEDS ORDERED: LEVAQUIN 500 M500 M2 PO (14:00)
[2019-03-13 15:04] VITALS: BP 112/48
--- NOTE | 2019-03-13 16:53 | NUR ---
ASSESSMENT CHARTED - MEDS PER AUG - ACCUCHECKS CHARTED -NOT REQUIRING SSI THIS SHIFT. BRENDA DIET AND FLIUDS WITH NO CO'S OF NAUSEA. NO CO'S OF PAIN. PT VOIDED X 2 SINCE STRAIGHT CATH THIS AM - 1 LARGE INCONTINENT AND THEN TO THE BATHROOM. STATES HE FELT LIKE HE EMPTIED BLADDER. PT SEEN BY PHYS AND OCC THERAPY - AMBULATED WITH THE USE OF A WALKER - PT AMBULATED WITH NURSING STAFF X 2 WITH WALKER TO THE BATHROOM. PT TRANSFERED TO SNF THIS AFTERNOON. LEFT UNIT VIA [facility]. REPORT CALLED TO FACILITY. MONITOR AND IV REMOVED PRIOR TO D/C. NO CO'S AT TIME OF DISCHARGE.
--- NOTE | 2019-03-14 12:49 | HC ---
[facility] [place] [address] CONSULTATION Name: MALOU SPENCER Room #: 215-P [facility] IN M.R.#: [id number] Admission: 03/07/19 Attend Phys: Jaswinder Meeks MD Discharge: 03/13/19 Date of : 28 Report #: [id number] THIS REPORT FOR: //name// CC: ARMANDO physician/PCP Jaswinder Meeks DATE OF SERVICE: 03/08/2019 WOUND CARE CONSULTATION NOTE REASON FOR CONSULTATION: Nonhealing wound of right great toe amputation site with bleeding. HISTORY OF PRESENT ILLNESS: The patient is an 88-year-old gentleman, who several weeks ago underwent amputation of the right great toe in the setting of diabetes and osteomyelitis. He had been in a rehabilitation facility. The patient is unable to give a good history, but apparently the wound has been nonhealing, and recently, the wound has been bleeding and the patient had been noted to be mildly anemic, hemoglobin 9.5, hematocrit 28.8. The patient was admitted yesterday to the hospital by Dr. Alvarado. Wound care has been consulted. PAST MEDICAL HISTORY: Respiratory failure and pulmonary edema, acute renal failure, history of atrial fibrillation, history of congestive heart failure, and history of uncontrolled diabetes mellitus, history of coronary artery disease, history of cardiomyopathy, history of emphysema, right great toe amputation on 12/20/2018. The patient underwent right femoral artery stenting in January 2019. ALLERGIES: CARDIZEM, SYMBICORT, ADVAIR, SIMVASTATIN, MIYA INHIBITORS AND OTHERS. MEDICATIONS: Include Eliquis, Novolin insulin, Caltrate, Brovana, magnesium oxide, vitamin C, Aldactone, Flomax, Lopressor, Centrum Silver, and Synthroid. PAST SURGICAL HISTORY: Right great toe amputation 12/20/2018, right femoral artery stent in January 2019. PHYSICAL EXAMINATION: GENERAL: Shows an elderly gentleman who is pleasant and alert. HEENT: Mucous membranes are moist. LUNGS: Respirations are unlabored. ABDOMEN: Soft. EXTREMITIES: Shows chronic venous stasis changes of both lower extremities with discoloration and pigmentation of the legs. There is very mild subtle redness of the right lower leg. Bandages are removed from the right foot, which shows an open right great toe amputation site. There is an open linear wound [address] [address] CONSULTATION Name: TJMALOU Room #: 215-P [facility] IN [facility].#: [id number] Admission: 03/07/19 Attend Phys: Jaswinder Meeks MD Discharge: 03/13/19 Date of : 28 Report #: [id number] measuring 3 cm x 0.3 cm with some adherent clot at the wound base and no active bleeding. Wound is not clinically infected. There may be some slight redness around it. IMPRESSION: 1. Diabetes mellitus type 2 with foot ulcer. 2. Peripheral vascular disease of right leg with amputation of right great toe. 3. Nonhealing surgical wound of right great toe with some bleeding. No active bleeding now. 4. Mild cellulitis of right foot and leg. 5. Coronary artery disease. PLAN: The patient is currently on IV antibiotics and clindamycin. Wound has been inspected. There is no active bleeding. Wound cultures will be obtained. We will do Aquacel silver dressing daily. Wound care team will follow. <ELECTRONICALLY SIGNED> By: Elan Charles MD 03/14/19 [id number] [phone] Elan Charles MD /nt
--- NOTE | 2019-03-25 09:17 | HC ---
[facility] [place] [address] CONSULTATION Name: TJMALOU Sophy Room #: 215-P [facility] IN .R.#: [id number] Admission: 03/07/19 Attend Phys: Jaswinder Meeks MD Discharge: 03/13/19 Date of : 28 Report #: [id number] THIS REPORT FOR: //name// CC: ARMANDO physician/PCP Jaswinder Meeks DATE OF SERVICE: 03/08/2019 REASON FOR CONSULTATION: Acute kidney injury. REASON FOR PRESENTATION: Leg weakness. HISTORY OF PRESENT ILLNESS: An 88-year-old with past medical history of chronic kidney disease, he is followed by Dr. Vigil in our clinic. He is also known to have diastolic heart failure, aortic stenosis, peripheral vascular disease and is suffering from recurrent issues with his right foot, toes, status post recent amputation. He is also known to have COPD and is wearing 2 liters oxygen with CPAP at night. He had a right femoral artery stent back in January 2019. The patient presented with repeated falls and was found to have an elevated creatinine and BUN along with hyperkalemia. The patient's creatinine runs usually around 1.7. This is as of January 2019. There had been some changes in his diuretic regimen with an increment in the spironolactone dose, torsemide dose. The patient has been feeling weak in the nursing facility with decreased oral intake. No nonsteroidal anti-inflammatory medication usage listed. When the patient presented yesterday, he was found to have hyperkalemia and acute kidney injury with a creatinine of 3.7. No reported urinary symptoms. He did have some bruises on his left thigh and was ruled out for a pseudoaneurysm after his left femoral stenting. No recent contrasted studies. The patient denies any chest pain or shortness of breath. His edema looked much better per his family members. He does have some chronic venous stasis changes. MEDICATIONS: 1. Aldactone. 2. Flomax. 3. Losartan. 4. Metoprolol. 5. Potassium. 6. Torsemide. 7. Levothyroxine. PAST MEDICAL HISTORY: 1. Coronary artery disease. 2. Aortic stenosis. 3. Hypertension. 4. Chronic kidney disease. 5. Diabetes mellitus. [facility] [address] [place] [address] CONSULTATION Name: MALOU SPENCER Sophy Room #: 215-P [facility].#: [id number] Admission: 03/07/19 Attend Phys: Jaswinder Meeks MD Discharge: 03/13/19 Date of : 28 Report #: [id number] 6. Obstructive sleep apnea. 7. Right great toe amputation. 8. Stent of the femoral artery. 9. Acute kidney injury back in December of this year with his creatinine peaking around 3. This has resolved with continued improvement in his renal function. ALLERGIES: Numerous and listed as the followin. DILTIAZEM. 2. SIMVASTATIN. 3. PIOGLITAZONE. SOCIAL HISTORY: He resides in [facility]. REVIEW OF SYSTEMS: GENERAL: Significant for weakness. No fever or chills. CARDIOVASCULAR: No chest pain or palpitation, no edema. PULMONARY: Significant for occasional shortness of breath. No cough or hemoptysis. GASTROINTESTINAL: No nausea or vomiting. Decreased oral intake. GENITOURINARY: No frequency, no urgency. SKIN: As per the history of present illness. NEUROLOGICAL: Weakness and fatigue, but no syncope, PHYSICAL EXAMINATION: GENERAL: The patient is alert, oriented, in no apparent distress. VITAL SIGNS: Blood pressure is 117/60. He did have hypotension and hypotensive episodes. He is afebrile. HEAD AND NECK: No jugular venous distention. CARDIOVASCULAR: Systolic murmur present, no rub. CHEST: Minimal crackles. ABDOMEN: Soft, nontender. Gastrointestinal and abdominal examination revealed no abdominal wall edema, no organomegaly. LOWER EXTREMITIES: Chronic venous stasis changes. LABORATORY VALUES: Reviewed. His hyperkalemia has improved and his potassium is now down to 4.7, BUN is down to 101, creatinine is down to 3.3. C-reactive protein is 135. White blood cell count is down to 12.6. ASSESSMENT AND PLAN: 1. Acute kidney injury, over diuresis. 2. Chronic kidney disease. 3. Hyperkalemia. 4. Anemia. 5. Osteo of the right foot wound. 6. Diabetes mellitus. 7. Atrial fibrillation. [address] [address] CONSULTATION Name: MALOU SPENCER Room #: 215-P [facility] IN M.R.#: [id number] Admission: 03/07/19 Attend Phys: Jaswinder Meeks MD Discharge: 03/13/19 Date of : 28 Report #: [id number] 8. Diastolic heart failure. 9. Peripheral vascular disease. 10. Aortic stenosis. PLAN: 1. His acute kidney injury, hyperkalemia are due to over diuresis, combination of Aldactone and potassium. Those have been discontinued. 2. Continue with IV fluid. 3. Hold all blood pressure medication. 4. Hold diuretics. 5. Infectious Disease team is managing his ongoing wound issues. 6. No need for any diuretics at this point. 7. Watch volume status. 8. We will continue to follow. <ELECTRONICALLY SIGNED> By: Lulu Nino MD 03/25/19 [phone] Lulu Nino MD /nt
[2019-04-20] MEDS ORDERED: SPIRONOLACTONE25 M1 PO (08:05)
[2019-04-20] MEDS ORDERED: SENNA-TIME S T1 EACH PO (08:05)
[2019-04-20] MEDS ORDERED: MUCINEX600 MG PO (08:05)
[2019-04-20] MEDS ORDERED: DEMADEX20 MG PO (08:05)
[2019-04-20] MEDS ORDERED: MIRALAX17 GM PO (08:05)
[2019-04-20] MEDS ORDERED: HUMULIN N100 UNIT/1 SUBQ ×2 (08:05)
[2019-04-20] MEDS ORDERED: BROVANA15 MCG/2 M INH (08:05)
[2019-04-20] MEDS ORDERED: LOPRESSOR25 PO (08:05)
[2019-04-20] MEDS ORDERED: NOVOLOG100 UNIT/1 SUBQ (08:05)
[2019-04-21] MEDS ORDERED: DEMADEX20 MG PO (08:29)
== END 2019-03-13 16:51 | DRG 602 ==
LOC: ER 17:57 → 2N 20:27 → EROBS 20:27 → 2N 21:49
PROVIDERS: Emergency Medicine; Hospitalist; Internal Medicine; Nurse Practitioner Acute Care; Nurse Practitioner Adult Health; ADMIT Internal Medicine
PROC: 5A09357 Assistance with Respiratory Ventilation, Less than 24 Consecutive Hours, Continuous Positive Airway Pressure (ICD-10-PCS; principal; 2019-03-12)
DX: L03.115 Cellulitis of right lower limb (principal); N17.0 Acute kidney failure with tubular necrosis; D62 Acute posthemorrhagic anemia; I50.32 Chronic diastolic (congestive) heart failure; D68.59 Other primary thrombophilia; J96.11 Chronic respiratory failure with hypoxia; M86.8X8 Other osteomyelitis, other site; I13.0 Hypertensive heart and chronic kidney disease with heart failure and stage 1 through stage 4 chronic kidney disease, or unspecified chronic kidney disease; I42.9 Cardiomyopathy, unspecified; I47.2 Ventricular tachycardia; E11.51 Type 2 diabetes mellitus with diabetic peripheral angiopathy without gangrene; I25.10 Atherosclerotic heart disease of native coronary artery without angina pectoris; J43.9 Emphysema, unspecified; E78.5 Hyperlipidemia, unspecified; G47.33 Obstructive sleep apnea (adult) (pediatric); S70.12XA Contusion of left thigh, initial encounter; E87.5 Hyperkalemia; E11.621 Type 2 diabetes mellitus with foot ulcer; D64.9 Anemia, unspecified; I35.0 Nonrheumatic aortic (valve) stenosis; I48.2 Chronic atrial fibrillation; I27.20 Pulmonary hypertension, unspecified; N18.3 Chronic kidney disease, stage 3 (moderate); B95.61 Methicillin susceptible Staphylococcus aureus infection as the cause of diseases classified elsewhere; E11.69 Type 2 diabetes mellitus with other specified complication; E03.9 Hypothyroidism, unspecified; E86.9 Volume depletion, unspecified; E83.42 Hypomagnesemia; Z82.49 Family history of ischemic heart disease and other diseases of the circulatory system; Z79.4 Long term (current) use of insulin; Z86.14 Personal history of Methicillin resistant Staphylococcus aureus infection; Z89.411 Acquired absence of right great toe; Z95.820 Peripheral vascular angioplasty status with implants and grafts; Z88.8 Allergy status to other drugs, medicaments and biological substances; Z87.891 Personal history of nicotine dependence; W18.39XA Other fall on same level, initial encounter; Y93.89 Activity, other specified; Y92.89 Other specified places as the place of occurrence of the external cause; Y99.8 Other external cause status
CPT/HCPCS: 10081

== ENCOUNTER 2019-03-26 17:29 | Inpatient (IN) | payer OTHER ==
[~2019-03-26] VITALS: Ht 177.8 cm; Wt 119.6 kg
[~2019-03-26 17:29] MED LIST changes: -BACTRIM DS TAB1 EACH PO; -HUMULIN N100 UNIT/1 SUBQ; -IPRATROPIU0.2 MG/1 M INH; -MAG6464 MG PO; -MUCINEX600 MG PO; -SENNA-TIME S T1 EACH PO; -TYLENOL325 MG PO; -XARELTO15 MG PO
[2019-03-26 19:16] LABS: HEMATOCRIT 37.5 % (42.0-52.0); HEMOGLOBIN 11.7 gm/dL (14.0-18.0); MCH 31.7 pg (26.0-34.0); MCHC 31.1 g/dL (28.0-37.0); MCV 101.7 fL (80.0-100.0); RBC 3.69 mil/uL (4.50-6.00); RDW 18.4 % (10.5-14.5); WBC 12.4 thou/uL (4.0-11.0)
[2019-03-26 19:22] LABS: CALCIUM 9.7 mg/dL (8.5-10.1); CREATININE 1.7 mg/dL (0.7-1.3); POTASSIUM 3.8 mmol/L (3.5-5.1)
[2019-03-26 19:28] LABS: INR 1.4; PROTIME 14.3 Seconds (9.3-11.4)
[2019-03-26 19:54] LABS: TSH 2.529 uIU/mL (0.358-3.740)
[2019-03-26 19:56] VITALS: BP 145/51
[2019-03-26 23:39] VITALS: BP 126/52
[2019-03-27 01:36] LABS: URINE BILIRUBIN NEGATIVE (Negative); URINE BLOOD NEGATIVE (Negative); URINE CLARITY CLEAR; URINE COLOR YELLOW; URINE GLUCOSE-RANDOM* NEGATIVE (Negative); URINE KETONES NEGATIVE (Negative); URINE LEUKOCYTES NEGATIVE (Negative); URINE NITRITE NEGATIVE (Negative); URINE PROTEIN (DIPSTICK) NEGATIVE (Negative); URINE SPECIFIC GRAVITY <= 1.005 (1.005-1.035); URINE UROBILINOGEN 0.2 E.U./dl (0.2-1.0)
--- NOTE | 2019-03-27 03:29 | NUR ---
ASSUMED CARE OF PT AT 1900HRS. PT IS AOX4 AND LETS NEEDS BE KNOWN. FALL PRECAUTION IN PLACE. CONTACT ISOLATION MAINTAINED. 3L O2 VIA NC CONTINUED. PT REFUSED CPAP USE THIS SHIFT. PT DENIED NAUSEA OR PAIN. PT AMBULATED TO THE TOILET WITH ONE ASSIST AND WALKER. PT WAS ABLE TO GET COMFORTABLE AND SLEEP PART OF THE SHIFT. MED REC NEEDS TO BE OBTAINED FROM [facility]. VSS AND NO S/S OF ACUTE DISTRESS. WILL CONTINUE TO MONITOR.
[2019-03-27 07:49] VITALS: BP 118/67
--- NOTE | 2019-03-27 14:14 | NUR ---
Nutrition: Assessed d/t wound consult. Admit: bilateral LE cellulitis. Hx R leg wound (chronic) and extensive cellulitis. PMH: DM II, HTN, diastolic HF, a fib, cardiomyopathy, COPD. Family in room for interview. Pt's diet changed from 2 g Na on 03/26 to regular 03/27. Last month, he was on a carb controlled diet per 02/2019 admit. Strongly recommend adding diabetic restrictions back in given wounds, mention of osteomyelitis in provider notes? Family knew pt needed a diabetic diet and tried to change standard room service menu to DM friendly meal. However, upon RD review, meal contained too high of carb intake. Education provided on need to minimize carbs, especially simple sugars for BG control, healing process. Pt unable to understand the degree of carbs being ordered and negative impact it could have. Multiple attempts to re- educate. Agreeable to small PM snack of crackers and PB to help prevent him from ordering second entree at dinner. On NPH insulin BID, SSI with BGs of 102, 177 mg/dl/ today. Stable wt near 260# since December. Appetite excellent, protein education provided for wounds. No immediate intervention needs, other than ongoing carb/DM reinforcement. Low nutrition risk otherwise.
--- NOTE | 2019-03-27 14:15 | NUR ---
PT ADMITTED RELATED TO CELLULITIS. CM REVIEWED CHART AND SPOKE WITH CARE TEAM. PT IS FAMILIAR TO CM FROM PREVIOUS ADMISSIONS. [facility] CM CALLED AND SPOKE WITH PT'S DTR NICOLAS CARLSON. SHE CONFIRMED THAT PT HAD BEEN AT [facility] SKILLED DOG POUND ATTENDANT. SHE INDICATED THAT SHE WAS NO SATISFIED WITH ANY OF THE SKILLED FACILITIES HAD BEEN IN AND THAT SHE DIDN'T FEEL THAT THEY WERE SKILLED ENOUGH TO TREAT PT'S WOUND. SHE INIDCATED SHE WOULD PREFER FOR PT TO GO TO [facility]N UPON DC. CM INDICATED THAT IN MOST INSTANCED PT'S [facility] P[facility] SENIOR PLAN DOESN'T AUTH ACUTE REHAB. CM INDICATED THAT CM WOULD FOLLOW INDICATED WITH DC PLANNING.
[2019-03-27 14:19] VITALS: BP 117/47
--- NOTE | 2019-03-27 14:29 | NUR ---
Strongly recommend considering adding diabetic diet restrictions for this pt given extensive wounds, hx DM II. Currently on regular and ordering extremely high carb intake. BGs today of 102-177 mg/dl. RD attempted numerous times to explain carbs, simple sugars, encouragement to make menu changes to reduce carbs and potential negative health impact d/t healing needs. Pt unable to fully understand.
--- NOTE | 2019-03-27 16:18 | NUR ---
SHIRA PORRAS, ENFORCEMENT MANAGER WITH DR. SRIVASTAVA, SAW PATIENT THIS DATE. FAMILY WOULD LIKE PATIENT TO COME TO ACUTE REHAB WHEN MEDICALLY STABLE. WILL AWAIT THERAPY EVALS AND WILL SUBMIT FOR AUTHORIZATION ON SATURDAY IF APPROPRIATE.
--- NOTE | 2019-03-27 18:05 | NUR ---
PATIENT DOING WELL TODAY. CONTINUED IV VANCOMYCIN. SAT UP IN CHAIR MOST OF THE DAY. TOLERATING DIET. WOUND CARE VISITED AND NEW ORDERS WRITTEN FOR TONI'S WET TO DRY DRESSING CHANGES ON RIGHT FOOT WOUNDS. ELEVATED RIGHT LEG. FAMILY VISITED. TAKING PILLS WHOLE WITH WATER. A&O X 4. VERY PLEASANT AND COOPERATIVE. UP TO BATHROOM WITH ASSIST WITH USE OF GAIT BELT AND WALKER. IN CONTACT ISOLATION FOR MRSA OF WOUNDS.
[2019-03-27 19:52] VITALS: BP 118/47
[2019-03-28 05:37] VITALS: BP 101/46
--- NOTE | 2019-03-28 06:31 | NUR ---
Assumed care of pt @1900. pt sitting in recliner a&ox4. pt ambulates with 1 assist to te bathroom with a walker. tylenol was given for mild pain to leg. v/s stable. pt declined cpap. sats wnl with 3l nasal canula. no sob, n/v. pt stated, he wears oxygen only on accassion at home. Contact prec in place. pt slept comfortably in the chair. lower ext. elevated. No s/s of distress. cont with POC
[2019-03-28 07:31] VITALS: BP 120/51
--- NOTE | 2019-03-28 11:22 | NUR ---
Received awake on bed. A+O. Due medications given as prescribed, able to swallow meds w/o difficulty. On regular diet- tolerating well, no nausea, no vomiting or abdominal pain noted. On blood sugar monitoring, taken and recorded accordingly, with NPH and sliding scale insulin prescribed. With SL at R UA- intact and flushing well. With O2 at 3 lpm via NC, CPAP at night- pt's baseline as per security shift manager nurse. A01 in ambulating, using walker and gait belt. Maintained on isolation d/t MRSA at wound. With dressing at R foot- C/D/I. Pt with orders from Dr Bloom for Dakin's to be applied to wound- No dakin's ordered, none available at IV bin or bedside- orders placed, to be applied once available. PT Bhargav went to pt's bedside to do NS irrigation/suction at R toe amputation- pt tolerated well. Vital signs stable. With critical value of Vancomycin trough 23.0- Dr Neves informed, pharmacy modified dose for PM. Assisted in ADLs. AM sliding scale not given, pt's blood sugar is 78- NPH insulin still given- verified by charge nurse.
[2019-03-28 14:11] VITALS: BP 118/66
[2019-03-28 19:47] VITALS: BP 134/55
[2019-03-29 04:02] VITALS: BP 144/68
--- NOTE | 2019-03-29 05:47 | NUR ---
PATIENT ALERT AND ORIENTED X4. UP TO BATHROOM WITH WALKER AND SBA, SOA NOTED AND RT TX WAS GIVEN. 02NC 3L. PATIENT COUGHING WITH NO SPUTUM NOTED. BLOOD SUGAR MONITORED PER ORDER. DRESSING DRY AND INTACT. PATIENT DID NOT WEAR HIS CPAP DURING THE NIGHT. RESTING QUIETLY. REMAINS ON ISOLATION FOR MRSA IN HIS WOUND.
[2019-03-29 05:58] LABS: CALCIUM 8.8 mg/dL (8.5-10.1); CREATININE 1.8 mg/dL (0.7-1.3); POTASSIUM 4.1 mmol/L (3.5-5.1)
[2019-03-29 07:51] VITALS: BP 154/72
--- NOTE | 2019-03-29 18:34 | NUR ---
Assumed patient care at 0715. Patient continues on O2 at 3 Liters per nc. He has been complaining out "losing my breath when I cough." He has been asking for and receiving throat lozenges. RT has been notified that patient may need another breathing treatment. Vital signs are stable. Patient has been up to the toilet x's 3 with moderate assistance. He had a small BM this am. POC followed. here to assess wounds. Will continue to monitor.
[2019-03-29 20:25] VITALS: BP 126/62
--- NOTE | 2019-03-30 03:21 | NUR ---
progress pt anxious and c/o soa on initial assessment respirations shallow and tachypneic. pursed lip breathing exercises taught by RT pt practiced and respiration rate slowed oxygenation improved, reduced anxiety. continuous pulse ox applied. isp ordered to teach when pt wakes. up in chair sleeping most of shift ambulated to br x 2 up with 1 gb and walker portable o2 needed as pt gets very soa with activity. continue rt tx's, wound care, encourage isp, increase and assist activity.
[2019-03-30 03:58] VITALS: BP 103/46
[2019-03-30 07:26] VITALS: BP 121/49
--- NOTE | 2019-03-30 09:47 | HC ---
[facility] [place] [address] CONSULTATION Name: SPENCERMALOU Sophy Room #: 451-P [facility] IN M.R.#: [id number] Admission: 03/26/19 Attend Phys: Ilia Villanueva Discharge: Date of : 29 Report #: [id number] THIS REPORT FOR: //name// CC: ARMANDO physician/PCP Ilia Villanueva DATE OF SERVICE: 03/27/2019 CHIEF COMPLAINT: Cellulitis, left leg and surgical wound following amputation of right great toe. HISTORY OF PRESENT ILLNESS: The patient is known to our service. He is an 88-year-old male patient who has had ongoing issues with slow healing of the amputation of his right great toe. He was doing well earlier this week, but developed increased swelling, dyspnea, as well as redness to his left leg, and has been admitted to the hospital for further evaluation and treatment. PAST MEDICAL HISTORY: Positive for coronary artery disease, atrial fibrillation, peripheral arterial disease, congestive heart failure with cardiomyopathy, hypertension, COPD, type 2 diabetes mellitus, obstructive sleep apnea, right great toe amputation in December of 2018, right femoral artery stent placement in January of 2019, and chronic kidney disease. SOCIAL HISTORY: Negative for alcohol or tobacco use. FAMILY HISTORY: Noncontributory. ALLERGIES: INCLUDE SYMBICORT, GEMFIBROZIL, CARDIZEM, ADVAIR DISKUS, SYMBICORT, SIMVASTATIN, PRECOSE, MIYA INHIBITORS, BEXTRA, ACTOS, SPIRIVA. MEDICATIONS: Include insulin, calcium carbonate, Brovana, magnesium oxide, amiodarone, torsemide, and levofloxacin. REVIEW OF SYSTEMS: CONSTITUTIONAL: The patient denies fever, chills, or weight loss. NEUROLOGICAL: The patient denies focal weakness, numbness, or tingling. He does complain of generalized weakness. EYES: The patient denies visual changes, redness, or drainage. ENT: The patient denies earache, nasal drainage, or sore throat. CARDIOVASCULAR: The patient denies chest pain, palpitations, or diaphoresis. PULMONARY: The patient complains of mild shortness of breath, mild orthopnea. GASTROINTESTINAL: The patient denies nausea, vomiting, diarrhea, or abdominal pain. GENITOURINARY: The patient does complain of some frequency of urination. Denies urgency or dysuria. MUSCULOSKELETAL: The patient does complain of pain, swelling of his left leg. [address] [address] CONSULTATION Name: MALOU SPENCER Sophy Room #: 451-P [facility] IN M.R.#: [id number] Admission: 03/26/19 Attend Phys: Ilia Villanueva Discharge: Date of : 29 Report #: [id number] Denies pain in his right leg. Other systems in a 14-point review of systems are negative. PHYSICAL EXAMINATION: VITAL SIGNS: At this time, include temperature 36.4, pulse 60, respiratory rate 16, and blood pressure 117/47. GENERAL: This is a chronically ill-appearing male patient, who appears to be in minimal distress. HEENT: Head normocephalic. Nose and throat clear. NECK: Supple. LUNGS: Diminished. HEART: Occasionally irregular without obvious murmur. ABDOMEN: Soft, nontender. EXTREMITIES: Lower extremities demonstrate an ulceration on the dorsal aspect of the right foot as well as the surgical wound following the amputation of the right great toe, both areas are relatively clean. There is some slough present on the toe amputation site. It does tunnel to bone. Left leg demonstrates no open ulcerations, but some cellulitic changes to the pretibial region. CLINICAL IMPRESSION: 1. Surgical wound following amputation of the right great toe that has been slow to heal. 2. Abrasion, likely secondary to prior dressing placement involving the dorsal aspect of the right foot. 3. Cellulitis, left pretibial region, lower leg. 4. Diabetes mellitus. 5. Peripheral arterial disease. LABORATORY DATA: Sodium 141, potassium 3.8, chloride 100, CO2 of 37, BUN 33, creatinine 1.7, glucose 102. Protime is 14.3, INR is 1.4. White blood cell count 12.4, hemoglobin 11.7. RECOMMENDATIONS: At this point in time, we will use quarter-strength Dakin's moist gauze packing to the right great toe. We will also add pulse lavage. Xeroform gauze and/or bordered foam to the dorsal aspect of the right foot, empiric antibiotic therapy, and elevation of the lower extremities. We will consider gentle compression as his breathing status will tolerate. Continue with current medications, nutrition for maximizing wound healing, and glycemic control. I appreciate being asked to see him in consultation. <ELECTRONICALLY SIGNED> By: Thierry Bloom MD 03/30/19 [id number] Thierry Bloom MD /nt
[2019-03-30 15:39] VITALS: BP 124/59
--- NOTE | 2019-03-30 15:41 | NUR ---
CM CALLED PT'S DTR TWICE ONCE THIS AM AND AGAIN THIS AFTERNOON TO DISCUSS DC PLANNING. PHYSICAIN INDICATED THAT HE HAD SPOKE WITH PT'S DTR AND THAT SHE HAD QUESTIONS ABOUT OPTIONS. CM HAD TOLD PT'S DTR THAT PT'S INSIRANCE USUALLY DOESN'T AUTH ACUTE REHAB OR LTAC AND THAT SKILLED IS USUALLY AUTHED. CM TO REITERATE THIS AND OFFER OPTIIONS. CM TO FOLLOW INDICATED WITH DC PLANNING.
--- NOTE | 2019-03-30 17:46 | NUR ---
Assumed patient care at 0715. Patient continues on O2 at 4 Liters. He has not been noted to be using his acessary muscles and/or struggling to breathe. Vital signs have been stable. He has only needed 4 units of sliding scale Insulin for noon blood sugar of 201. Wound care completed by the wound care doctors. IV is still patent in upper right arm. Patient is no longer on Contact Isolation for MRSA. POC followed. Will continue to monitor.
[2019-03-30 19:19] VITALS: BP 146/52
--- NOTE | 2019-03-31 05:49 | NUR ---
PT A&O X4 ABLE TO MAKE NEEDS KNOWN. DENIES PAIN. MODERATE ASSIST TRANSFER WITH A RW HIGH FALL RISK. GB.ACHS. PT HAD A VANCO TROUGH DRAW AT HS WAS 23. PHARMACY NOTIFIED MANAGING VANCO. ABX ON HOLD RANDOM VANCO TROUGH RECHECK IN THE MORNING. PEDIATRIC CNS ALSO NOTIFIED OF PHARMACY RECOMMENDATION TO CHECK LABS ON THE PT. OPRDER OBTAINED FOR DAILY BMP.
[2019-03-31 07:21] VITALS: BP 128/51
[2019-03-31 08:29] LABS: CALCIUM 9.1 mg/dL (8.5-10.1); CREATININE 1.3 mg/dL (0.7-1.3); POTASSIUM 4.3 mmol/L (3.5-5.1)
[2019-03-31 13:28] VITALS: BP 129/44
[2019-03-31 19:30] VITALS: BP 131/61
--- NOTE | 2019-03-31 19:43 | NUR ---
Assumed pt care this am, currently on 3 L of O2 via NC. wheezing has been noted and soa with exertion. Though VSD have been stable, pt is able to ambulate [facility] gait[facility] and wheelchair. Pt prefers to stay on the recliner than to sleep on his bed. VAnco currently on hold til the am, blood sugar draws with acording sliding scale given. Wound care abd dressing change done. POC followed no signs or verbalizations of distress have been noted.
--- NOTE | 2019-04-01 03:43 | NUR ---
ASSUMED CARE AROUND 1900. AXOX3. VSS. DENIES PAIN AT REST. TOLERATED CPAP OK AT THIS TIME. BLE DRESSNG CDI. ORTHO BOOT ON R FOOT. NO S/S ACUTE DISTRESS NOTED OR REPORTED AT THIS TIME. WILL CONT TO MONITOR FOR ANY CHANGES IN CONDITION.
[2019-04-01 05:38] LABS: CALCIUM 8.9 mg/dL (8.5-10.1); CREATININE 1.3 mg/dL (0.7-1.3); POTASSIUM 4.7 mmol/L (3.5-5.1)
[2019-04-01 07:55] VITALS: BP 123/77
[2019-04-01 12:42] LABS: HEMOGLOBIN 11.7 gm/dL (14.0-18.0); MCH 32.6 pg (26.0-34.0); MCHC 31.5 g/dL (28.0-37.0); MCV 103.3 fL (80.0-100.0); RBC 3.58 mil/uL (4.50-6.00); RDW 18.3 % (10.5-14.5); WBC 10.3 thou/uL (4.0-11.0)
--- NOTE | 2019-04-01 13:29 | NUR ---
CM CALLED PT'S DTR NICOLAS AND LEFT A VM FOR HER INDICATING THAT CM NEEDED TO SPEAK WITH HER REGARDING DC PLANNING. CM HASN'T HEARD BACK OF THIS NOTE. CM TO FOLLOW INDICATED WITH DC PLANNIG.
--- NOTE | 2019-04-01 14:55 | NUR ---
radha sent referral to [facility], discharging possibly tomorrow or Saturday.
[2019-04-01 15:03] VITALS: BP 151/67
[2019-04-01 19:30] VITALS: BP 132/70
--- NOTE | 2019-04-01 19:44 | NUR ---
ASSUMED CARE AROUND 0700. A&OX3. DENIES PAIN AT REST. DRESSING CHANGE ON RLEG. ORTHO BOOT ON RIGHT LEG. WAITING ON OPEN BED ON 3W. WILL CONTINUE TO MONITOR FOR ANY CHANGES IN CONDITION,
[2019-04-02 06:21] LABS: HEMATOCRIT 32.4 % (42.0-52.0); HEMOGLOBIN 10.4 gm/dL (14.0-18.0); MCH 32.6 pg (26.0-34.0); MCV 101.8 fL (80.0-100.0); RBC 3.18 mil/uL (4.50-6.00); RDW 18.3 % (10.5-14.5); WBC 8.6 thou/uL (4.0-11.0)
[2019-04-02 06:29] LABS: CREATININE 1.5 mg/dL (0.7-1.3); POTASSIUM 3.9 mmol/L (3.5-5.1)
[2019-04-02 06:34] LABS: CALCIUM 8.9 mg/dL (8.5-10.1)
[2019-04-02 06:57] LABS: FOLIC ACID 11.9 ng/mL (8.6-58.9)
[2019-04-02 08:38] VITALS: BP 125/54
--- NOTE | 2019-04-02 08:48 | NUR ---
Nutrition: Seen for follow up. Pt continues on a heart healthy, 2 g Na diet. Consistently high PO intake. Averaging ~90% meals x 5 days. Eating 100% of all meals yesterday. On NPH insulin BID plus SSI (hx DM II). On IV Lasix BID; no new weights to review. BGs staying well controlled < 180 mg/dl, ranged 84-172 per 04/01, w/ AM hypoglycemia of 64 mg/dl. Pt voices new food preferences today. Doesn't want any greasy foods, which he likely isn't receiving anyways on low Na diet. Wants a juice cup w/ every meal. RD reiterated need to focus on protein first from lean meats, low fat dairy, or other plant sources. Pt OK to add on 2 milks to lunch, dinner today. Has ortho boot on R leg (surgical wound s/p R great toe amputation), on antibiotics for L leg cellulitis. Remains low nutrition risk.
--- NOTE | 2019-04-02 09:20 | EKG ---
[address] [place] [employer] [place] [address] ELECTROCARDIOGRAM REPORT Name: SPENCERMALOU Room #: 451-P ADM IN M.R.#: [id number] Admission: 03/26/19 Attend Phys: Ilia Villanueva Discharge: Date of : 29 Report #: [id number] THIS REPORT FOR: //name// [facility] Test Date: 2019-04-02 Test Time: 08:07:00 Pat Name: MALOU SPENCER Department: Room: 451 P Gender: M [employer]hydrogen[employer] Supervisor: Eli LEARY : 1930 Requested By: Yousif Najera Order Number: [id number] MD: Yousif Najera Measurements Intervals [place] Rate: 50 P: UT: QRS: -60 QRSD: 110 T: 63 QT: 523 QTc: 477 Interpretive Statements Atrial fibrillation Ventricular premature complex Poor R wave progression Compared to ECG 03/09/2019 07:49:44 Ventricular premature complex(es) now present Electronically Signed On 04-02-2019 9:20:37 CDT by Yousif Najera [email or web address] <ELECTRONICALLY SIGNED> By: Yousif Najera MD, [facility] 04/02/19 09 6 6 Yousif Najera MD, [facility] /EPI
--- NOTE | 2019-04-02 15:22 | NUR ---
DISCHARGE PLANNING. CALL PLACED TO [facility], TO FOLLOW UP ON PATIENT REFERRAL FAXED TO HER YESTERDAY. PER DEANDRE, THEY DO NOT HAVE ANY BEDS AVAILABLE AT THIS TIME. UNIT SW NOTIFIED.
--- NOTE | 2019-04-02 15:51 | NUR ---
Assumed patient care at 0715. Patient has been placed on IV push Lasix, has needed moderate assistance going to and from the toilet, using a gait belt and a walker. Vital signs have been stable. He continues on Oxygen at 3 liters per nc. Blood sugar 69 at 0743, blood sugar 159 at 1204. Patient also has had a few urinary accidents due to the Lasix. IV is Saline Locked in right upper arm. Patient's cough and breathing have improved greatly. POC being followed. Will continue to monitor.
[2019-04-02 15:56] VITALS: BP 106/54
[2019-04-02 21:21] VITALS: BP 150/73
[2019-04-02 23:53] VITALS: BP 150/73
[2019-04-03 03:50] LABS: CALCIUM 9.4 mg/dL (8.5-10.1); CREATININE 1.6 mg/dL (0.7-1.3); POTASSIUM 3.5 mmol/L (3.5-5.1)
--- NOTE | 2019-04-03 04:37 | NUR ---
Assessments completed. pt a&ox4. ambulates with 1 assist with a walker and gaitbelt. pt was incont of large amount of urine at the start of the shift, male external catheter was placed and is patent. pt stated he feels so much better with the cath on. wound dressing to right foot was soiled with urine and was changed. pt used the cpap all night. pt is on lasix. adequate output. there was no s/s of distress noticed overnight. pt slept in the recliner. chair alarm on, callbell within reach. will cont to monitor and follow POC
--- NOTE | 2019-04-03 07:07 | HC ---
[facility] [place] [address] [place] [address] CONSULTATION Name: SPENCERMALOU Room #: 451-P [facility] IN ..#: [id number] Admission: 03/26/19 Attend Phys: Ilia Villanueva Discharge: Date of : 29 Report #: [id number] THIS REPORT FOR: //name// CC: FAM physician/PCP Ilia Villanueva DATE OF SERVICE: 04/02/2019 ENDOCRINE CONSULTATION NOTE CONSULTING PHYSICIAN: Dr. Villanueva. REASON FOR CONSULTATION: Uncontrolled type 2 diabetes mellitus, hypoglycemia. HISTORY OF PRESENT ILLNESS: This is an 88-year-old male patient whose medical background is significant for multiple medical issues including type 2 diabetes mellitus, chronic renal insufficiency, atrial fibrillation and nonhealing foot wounds. The patient was admitted primarily due to a nonhealing right foot wound for further care and monitoring. The patient notes that he has had type 2 diabetes mellitus for many years. His most recent antidiabetic regimen consisted of NPH insulin monotherapy at a dose of what he believed was 28 units twice a day. He notes that while he does check his blood glucose values at home that he is unable to always see what those values are due to visual impairment. However, he does not believe he runs often into issues with hypoglycemia. The patient could not be specific in terms of whether or not specific diabetic complications have affected his eyes, but he does know that his visual acuity has suffered over the past few years. Also, the patient had significant issues with peripheral diabetic neuropathy affecting his feet and notes that he typically has to use gabapentin multiple times a day to be able to tolerate the pain and discomfort. Also, the patient has hypothyroidism and is maintained on levothyroxine 175 mcg daily. He was not able to provide details on the history of this dose selection and whether recent adjustments have been made. The patient is also known to have hypertension and is on therapy with metoprolol. During this hospital stay, the patient had been followed by the Cardiology Service for the issues of atrial fibrillation and chronic diastolic heart failure. He also has had issues with acute on chronic respiratory failure and hypoxemia and the pulmonary team had followed this progress as well during this hospital stay. The patient has ongoing difficulties with lower extremity cellulitis and is receiving antibiotics for this. [address] [address] CONSULTATION Name: MALOU SPENCER Room #: 451-P [facility] IN M.R.#: [id number] Admission: 03/26/19 Attend Phys: Ilia Villanueva Discharge: Date of : 29 Report #: [id number] REVIEW OF SYSTEMS: CONSTITUTIONAL: Fatigue, tiredness, but not fever or chills or significant changes in body weight. HEENT: Negative for sore throat, sinus pain, ear drainage. PULMONARY: Shortness of breath, intermittent issues with cough, but not hemoptysis. CARDIAC: Lower extremity swelling, dyspnea on exertion, intermittent palpitations, but not syncope or presyncope. No active chest pain. GASTROINTESTINAL: Abdominal distention, intermittent abdominal discomfort, nausea, but not vomiting or significant changes in bowel movement frequency. NEUROLOGY: Noted for severe peripheral diabetic neuropathy, resulting in pain and discomfort of the feet, responsive to gabapentin. No reports of seizure activity, severe recurrent headaches or loss of consciousness. SKIN: Stasis dermatitis changes affecting both lower extremities, but no major discoloration, otherwise. Cellulitic changes have chronically affected both his left and right feet. MUSCULOSKELETAL: Sporadic, but recurrent issues with joint and muscle aches. Otherwise, his review of system is noncontributory other than those mentioned in HPI. PAST MEDICAL HISTORY: 1. Type 2 diabetes mellitus. 2. Hypertension. 3. Atrial fibrillation. 4. Chronic obstructive pulmonary disease. 5. Pulmonary hypertension. 6. Obstructive sleep apnea. 7. Microcytic anemia. 8. Peripheral vascular disease, peripheral arterial disease, status post multiple bilateral toe amputations. 9. Hypothyroidism. 10. Acute on chronic diastolic heart failure. CURRENT MEDICATIONS: Amiodarone 200 mg daily, furosemide 40 mg daily, vancomycin 750 mg q.24 hours, mag oxide 400 mg daily, Flomax 0.4 mg daily, NPH insulin 25 units b.i.d., gabapentin 300 mg q.i.d., Humalog supplemental scale coverage, metoprolol 50 mg b.i.d. ALLERGIES: SYMBICORT, GEMFIBROZIL, DILTIAZEM, ADVAIR, SIMVASTATIN, ACARBOSE, MIYA INHIBITORS, BEXTRA, ACTOS, SPIRIVA. FAMILY HISTORY: Noncontributory. SOCIAL HISTORY: The patient denies the active use of tobacco or alcohol. He resided at multiple skilled care nursing facilities over the past [address] [address] CONSULTATION Name: MALOU SPENCER Room #: 451-P [facility] IN M.R.#: [id number] Admission: 03/26/19 Attend Phys: Ilia Villanueva Discharge: Date of : 29 Report #: [id number] PHYSICAL EXAMINATION: GENERAL: Elderly male patient who is not in apparent pain or distress. VITAL SIGNS: Blood pressure is 125/54 mmHg, heart rate is 55 beats per minute, respirations 14 per minute, temperature is 36.6 degrees Celsius. CONSTITUTIONAL: The patient appears comfortable, not in apparent distress, sitting in his chair. HEENT: Anicteric sclerae. Intact extraocular motions. NECK: Supple, without JVD, carotid bruits or lymphadenopathy. I do not appreciate thyromegaly. CHEST: Noted for limited air entry bilaterally with scattered wheezes, rhonchi and scattered crackles over both lung bases. HEART: Regular rate and rhythm without murmurs or gallops. ABDOMEN: Obese, distended, but soft and lax, without guarding, or organomegaly. EXTREMITIES: Lower extremity exam is noted for ankle edema bilaterally, both feet are wrapped in surgical dressing. NEUROLOGIC: Awake, alert and oriented to time, place and person. The remainder of his examination is nonfocal other than for peripheral sensory deficits. PSYCH: Flat mood and affect, interactive, pleasant enough. LABORATORY DATA: Blood glucose values during his hospital stay so far has demonstrated a pattern of blood glucose remaining under reasonable control during the waking hours with most being under 170 mg/dL; however, on 3 consecutive days, the patient had fasting hypoglycemia, although mild. This had been consistent and ranged from 69-87 mg/dL on the past 3 days. Otherwise, sodium 142, potassium 3.9, chloride 102, CO2 of 36, anion gap 4, BUN 30, creatinine 1.5, glucose 68, AST 22, lipase 120, total bilirubin 0.4, calcium 8.9, phosphorus 3.6, magnesium 1.8, alkaline phosphatase 85, ALT 21, albumin 2.6, GFR 44. Ammonia 22. Lactic acid 1.5. BNP 2322. CRP 135.6, INR 1.4. White blood count 8.6, hemoglobin 10.4, hematocrit 32.4, platelets 254. Hemoglobin A1c was 8.4%. TSH was 2.52. Free T4 of 1.1. ASSESSMENT AND PLAN: 1. Type 2 diabetes mellitus, uncontrolled. The patient has an uncontrolled baseline as indicated by his hemoglobin A1c of 8.4%. During his hospital stay and while implementing the same insulin regimen he utilizes at home, the patient was noted to have well controlled daytime blood glucose values, however, with recurrent issues with fasting hypoglycemia. That said, I will keep his NPH insulin dose at 25 units in a.m., but drop it down to 20 units in p.m. Coverage with Humalog supplemental scale as needed in addition to blood glucose monitoring a.c. and at bedtime will continue for the time being. 2. Hypothyroidism. The patient has been on a stable dose of levothyroxine and has been clinically stable with his most recent thyroid function indices reflecting the same. I will maintain the current dose. 3. Hypertension. The patient's level of blood pressure control is adequate. He is to continue the same. [facility] [address] [place] [address] CONSULTATION Name: MALOU SPENCER Room #: 451-P [facility] IN ..#: [id number] Admission: 03/26/19 Attend Phys: Ilia Villanueva Discharge: Date of : 29 Report #: [id number] 4. Congestive heart failure, atrial fibrillation. The patient is under the active followup of Cardiology for these issues. 5. Respiratory failure, acute on chronic. The patient is under the active follow up with Pulmonary for this issue. He is to continue the same management. 6. Diabetic neuropathy. The patient made specific complaints about this issue and it seems that his current regimen of 300 mg q.i.d. is not covering his needs well. This will be increased to 400 mg q.i.d. The patient's outlook will be evaluated following this change. I certainly appreciate this consultation by Dr. Villanueva. <ELECTRONICALLY SIGNED> By: Eugenia Nance MD 04/03/19 0707 [id number] Eugenia Nance MD /nt
[2019-04-03 07:51] VITALS: BP 119/58
[2019-04-03 14:50] VITALS: BP 101/44
--- NOTE | 2019-04-03 15:20 | NUR ---
WOUND CARE F/U; ROUNDING WITH DR CHAVEZ. THE AMPUTATION SITE RIGHT TOE AND THE DORSAL FOOT WOUND ARE CLEANSER TODAY WITH NO ODOR OR ANY S/S OF INFECTION. CONTINUE POC DISCUSSED WITH CARMEN
--- NOTE | 2019-04-03 16:44 | NUR ---
CM FOLLOWED UP WITH PT'S DTR NICOLAS CARLSON AND INDICATED THAT [facility] DIDN'T HAVE ANY BEDS. CM INDICATED THAT CM NEEDED TO KNOW WHERE ELSE THEY WANTED REFERRALS SENT. DTR INDICATED THAT SHE WAS NOT CONFORTABLE WITH PT GOING TO A SKILLED FACILITY THAT IT HAS BEEN SEEN THAT THEY CAN'T PROPERLY CARE FOR PT. SHE INDICATED THAT SHE WOULD ONLY HAVE TO GO TO [facility]. SHE STATED THAT VALERIY WITH OT HAD TOLD HER THAT PHYSICAIN COULD DO A PEER TO PEER AND CM INDICATED THAT CAN'T BE DONE UNTIL AUTH IS SOUGHT AND DENIED AND THAT [facility] HADN'T SOUGHT AUTH. DTR ASKED THAT AUTH BE SOUGHT FOR [facility]. CM CALLED AND SPOKE WITH LIAISON AND SHE INDICATED THAT THEY WERE FULL AND WON'T SEEK AUTH. CM NOTIFIED PT'S DTR AND ASKED IF REFERRALS COULD BE SENT TO [facility] OR [facility] AND SHE SAID NO. CM TO FOLLOW INDICATED WITH DC PLANNING. CM CANCER GENETIC COUNSELOR AND HOSPITALIST AWARE OF SITUATION.
--- NOTE | 2019-04-03 17:41 | HC ---
[facility] [place] [address] CONSULTATION Name: MALOU SPENCER Room #: 451-P ADM IN M.R.#: [id number] Admission: 03/26/19 Attend Phys: Ilia Villanueva Discharge: Date of : 28 Report #: [id number] THIS REPORT FOR: //name// CC: ARMANDO physician/PCP Ilia Villanueva DATE OF SERVICE: 04/02/2019 INFECTIOUS DISEASE CONSULTATION REASON FOR CONSULTATION: I was asked to evaluate concerning right foot wound infection following amputation of the right great toe. Associated venous stasis disease and cellulitis. 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 Subsequently, he has had a very slow wound healing. He has underlying peripheral vascular disease. He had revascularization procedure, which has helped some, but he still has not closed. Due to increased swelling, dyspnea and lower extremity erythema, he was hospitalized on 03/26/2019. I had seen him in the week before where he was doing reasonably well. He has had issues with congestive heart failure before. He also has underlying COPD. Following his hospitalization, he was placed on vancomycin. He has shown some improvement, although still has moderate amount of drainage from his foot wound. Cardiovascular Medicine is working on his diuretics. PAST MEDICAL HISTORY: Coronary artery disease, atrial fibrillation, peripheral vascular disease, congestive heart failure with cardiomyopathy, hypertension, COPD, diabetes, obstructive sleep apnea, right great toe amputation in 12/2018, right femoral artery stent placement in 01/2019, chronic kidney disease. FAMILY HISTORY: Noncontributory. SOCIAL HISTORY: Nonsmoker, no significant alcohol use. ALLERGIES: SYMBICORT GEMFIBROZIL, CARDIZEM, ADVAIR, SIMVASTATIN, PRECOSE, MIYA INHIBITORS, BEXTRA, ACTOS AND SPIRIVA. MEDICATIONS: As noted on his MAR. Previously was on Levaquin. This was discontinued and he is now on vancomycin per primary care at the time of admission. REVIEW OF SYSTEMS: The patient has been generally weak. Intermittent cough with minimal sputum production. No chest pain or palpitations. Denies any nausea, vomiting or diarrhea. He now has an external catheter in place due to [facility] [address] [place] [address] CONSULTATION Name: TJMALOU Sophy Room #: 451-P [facility] IN .R.#: [id number] Admission: 03/26/19 Attend Phys: Ilia Ge Kay Discharge: Date of : 28 Report #: [id number] increased urine output from his diuresis. Further 10-point review of systems was negative other than what has been described above. PHYSICAL EXAMINATION: VITAL SIGNS: He is afebrile and hemodynamically stable. GENERAL: He was sitting up in his chair with legs elevated. SKIN: He had 2+ anasarca. There were venous stasis dermatitis changes to both lower extremities, right greater than left. The wound to his right foot was dressed and dry. No palpable adenopathy. HEENT: Eyes, without scleral icterus. Mouth without mucositis. NECK: Supple. LUNGS: Decreased breath sounds bilaterally. HEART: Irregular without appreciable murmur. ABDOMEN: Obese, soft, nontender, no hepatosplenomegaly or mass. GENITOURINARY: External genitalia without lesion with an external catheter in place. EXTREMITIES: With 2+ peripheral edema in both upper and lower extremities. NEUROLOGIC: Cranial nerves intact. Strength in the upper and lower extremities was symmetric and normal, sensation in the upper and lower extremities was normal. Mood was normal. LABORATORY STUDIES: Vancomycin trough was 16, creatinine 1.5. BNP 2322. Hemoglobin 10, WBC 8.6, platelet count 254,000. Chest x-ray with edema, right effusion and right lower lobe atelectasis, infiltrate. IMPRESSION: An 88-year-old with congestive heart failure, chronic venous stasis disease with increased erythema to his lower extremities, most consistent with venous stasis dermatitis. May have a component of cellulitis as well, although he is not having fever or leukocytosis. This is associated with a nonhealing wound to his right foot. His previous cultures had revealed Enterobacter, Enterococcus and Prevotella. He has also had culture positive for Staphylococcus aureus. RECOMMENDATIONS: We will continue with the current treatment program. We would like to include the Levaquin in his treatment program for coverage of the Enterobacter. Continue with diuresis and leg elevation. We will screen for MRSA. Likely go back to the Levaquin monotherapy at that point. <ELECTRONICALLY SIGNED> By: Willam Jarquin MD 04/03/19 1741 [id number] Willam Jarquin MD /nt
--- NOTE | 2019-04-03 18:43 | NUR ---
Assumed pt care this am, with a condom cath that was replaced end of shift. Strict I and O and daily weights endorsed and observed. Wound care done by wound care team. VS stable, lungs are diminished but not wet. US for venous return for both upper and lower ext done today. On 3L of O2 via NC, but requires 6 liters when ambulations. Pt spent most of the day on his recliner. No signs or verbalizations of distress. POC follwed.
[2019-04-03 19:16] VITALS: BP 128/56
--- NOTE | 2019-04-04 04:18 | NUR ---
ASSUMED CARE OF PT @1900. NO CHANGES OVERNIGHT. PT HAD A RESTFUL NIGHT IN THE RECLINER. CHAIR HETALRAM ON. MALE EXT CATH IN PLACE AND PATENT. CPAP IN PLACE. V/S STABLE. WOUND DRESSING CLEAN, DRY AND INTACT. NO S/S OF DISTRESS. WILL CONT TO MONITOR
[2019-04-04 06:09] LABS: CALCIUM 9.6 mg/dL (8.5-10.1); CREATININE 1.9 mg/dL (0.7-1.3); POTASSIUM 3.9 mmol/L (3.5-5.1)
[2019-04-04 08:28] VITALS: BP 109/51
[2019-04-04 09:45] VITALS: BP 98/56
[2019-04-04 14:51] VITALS: BP 99/53
[2019-04-04 19:35] VITALS: BP 109/57
--- NOTE | 2019-04-05 04:02 | NUR ---
ASSUMED CARE AROUND 1900. AXOX3. IN CHAIR. LE UP WITH RECLINER. CPAP ON. NO S/S ACUTE DISTRESS NOTED OR REPORTED AT THIS TIME. WILL CONT TO MONITOR FOR ANY CHANGES IN CONDITION.
[2019-04-05 06:41] LABS: CALCIUM 9.5 mg/dL (8.5-10.1); CREATININE 2.4 mg/dL (0.7-1.3); POTASSIUM 4.1 mmol/L (3.5-5.1)
[2019-04-05 07:15] VITALS: BP 134/54
[2019-04-05 11:18] VITALS: BP 137/37
[2019-04-05 15:10] VITALS: BP 101/43
[2019-04-05 18:59] VITALS: BP 122/44
--- NOTE | 2019-04-05 19:13 | NUR ---
Assumed pt care this am, VS stable. Pt had a large BM this am. On 3L of O2 via NC than needs to be raised to 6l when ambulatimg. Wound dressing c/d/i/. No signs or verbalizations of distress have been noted. External FC in place draining yellow urine. Diet and medication well tolerated, progressing well towards goals. POC followed endorsed to the night nurse.
[2019-04-06 03:02] VITALS: BP 103/41
--- NOTE | 2019-04-06 03:28 | NUR ---
PT IS A/O X4.PT WAS SITTING IN CHAIR WITH ELEVATED BLE .PT IS O2/NC/NC AND SHOULD HAVE 6L/O2 WHEN AMBULATING AND CPAP AT NIGHT.PT HAS CONDOM CATHETER IN PLACE.ACCU CHECK DONE .PT IS ON STRICT I$O MONITOR.UP WITH X2 ASSIST.PT CHOSE TO SPEND NIGHT IN RECLNER.CONTINUE POC
[2019-04-06 05:25] LABS: HEMATOCRIT 38.7 % (42.0-52.0); HEMOGLOBIN 12.2 gm/dL (14.0-18.0); MCH 31.8 pg (26.0-34.0); MCHC 31.5 g/dL (28.0-37.0); MCV 101.2 fL (80.0-100.0); RBC 3.82 mil/uL (4.50-6.00); WBC 9.4 thou/uL (4.0-11.0)
[2019-04-06 05:44] LABS: CALCIUM 9.5 mg/dL (8.5-10.1); CREATININE 2.4 mg/dL (0.7-1.3); POTASSIUM 3.8 mmol/L (3.5-5.1)
[2019-04-06 07:35] VITALS: BP 117/46
[2019-04-06 15:20] VITALS: BP 129/55
--- NOTE | 2019-04-06 16:13 | NUR ---
Assumed patient care at 0715. Patient is alert and oriented x's 4. His IV is in upper right arm and is patent. He continues on Oxygen at 2 liters per nc. AM blood sugar was 147, it was 231 at 1215. Metoprolol was held due to low blood pressure et pulse this am. Food and fluid intake have been adequate. Condom catheter came off when he was working with OT; new one placed. Patient has been calm et cooperative. Patient continues to get up with assist x's 2, using a gait belt and rolling walker. POC followed. Will continue to monitor.
--- NOTE | 2019-04-06 16:34 | NUR ---
[facility] SUBMITTED FOR AUTH FOR ACUTE REHAB. AWAITING DETERMINATION. CM TO FOLLOW INDICATED WITH DC PLANNIG.CM TO [facility] OUT TO [facility] FOR POSSIBLE SKILLED BACK UP.
[2019-04-06 20:13] VITALS: BP 126/55
--- NOTE | 2019-04-07 01:34 | NUR ---
PATIENT AOX4 MAKES NEEDS KNOWN. PATIENT DRESSING ON RIGHT FOOT IS C/D/I. PATIENT IS ON C PAP AT NIGHT.PATIENT TRANSFERS FROM RECLINER TO THE COMMODE WITH TWO ASSIST. PATIENT DENIED PAIN OR DISCOMFORT. PATIENT REFUSED TO SLEEP IN BED. PATIENT ENCOURAGED TO ELEVATE BLE. CALL LIGHT AND PERSONAL BELONGING WITHIN REACH. FALLPRECAUTION IN PLACE.PATIENT ON RECLINER AT THIS TIME BREATHING REGULAR AND UNLABOURED.
[2019-04-07 07:46] VITALS: BP 115/47
[2019-04-07 10:56] LABS: CALCIUM 9.6 mg/dL (8.5-10.1); CREATININE 2.1 mg/dL (0.7-1.3); MAGNESIUM 2.1 mg/dL (1.8-2.4); PHOSPHORUS 3.6 mg/dL (2.5-4.9); POTASSIUM 3.8 mmol/L (3.5-5.1)
[2019-04-07 14:38] VITALS: BP 113/50
--- NOTE | 2019-04-07 15:38 | NUR ---
AWAITING INSURANCE AUTH FOR [facility] ACUTE INPATIENT REHAB. CM TO FOLLOW INDICATED WITH DC PLANNING.
--- NOTE | 2019-04-07 15:51 | NUR ---
Assumed patient care at 0715. Patient continues to be moderate assist with 2 , using a walker and a gait belt. Patient's condom catheter is in place/patent, draining light yellow fluid. He was reported to have one loose stool this am. He continues to have good food and fluid intake. Vital signs have been stable. He continues with Oxygen at 2 Liters per nc. His IV is in his right upper arm and is patent. Patient takes all pills whole, is compliant with all tests and treatments. Blood sugars have been as follows today: 126 at 0747 and 200 at 1212. Patient is to be moved to the fifth floor this evening for rehab. Will continue to monitor.
--- NOTE | 2019-04-07 15:55 | NUR ---
[facility] GOT INSURANCE AUTH FOR PT TO DC TO ACUTE REHAB THIS DAY. CM CALLED AND NOTIFIED PT'S DTR NICOLAS AND SHE WAS ELATED. PT IS TO DC TO [facility] ON SECOND SHIFT. REPORT TO BE CALLED TO . NO OTHER CM INTERVETNION INDCIATED. CASE CLOSED.
[2019-04-07] MEDS ORDERED: TYLENOL325 MG PO (16:40)
[2019-04-07] MEDS ORDERED: PACERONE 200 M200 M1 PO (16:40)
[2019-04-07] MEDS ORDERED: HUMULIN N100 UNIT/1 SUBQ ×2 (16:40)
[2019-04-07] MEDS ORDERED: MUCINEX600 MG PO (16:40)
[2019-04-07] MEDS ORDERED: IPRATROPIU0.2 MG/1 M INH (16:40)
[2019-04-07] MEDS ORDERED: SPIRONOLACTONE25 M1 PO (16:40)
[2019-04-07] MEDS ORDERED: XARELTO15 MG PO ×2 (16:40)
[2019-04-07] MEDS ORDERED: BROVANA15 MCG/2 M INH (16:40)
[2019-04-07] MEDS ORDERED: NOVOLOG100 UNIT/1 SUBQ (16:40)
[2019-04-07] MEDS ORDERED: BACTRIM DS TAB1 EACH PO (16:40)
[2019-04-07] MEDS ORDERED: MAG6464 MG PO (16:40)
[2019-04-20] MEDS ORDERED: SENNA-TIME S T1 EACH PO (08:05)
[2019-04-20] MEDS ORDERED: LOPRESSOR25 PO (08:05)
[2019-04-20] MEDS ORDERED: NOVOLOG100 UNIT/1 SUBQ (08:05)
[2019-04-20] MEDS ORDERED: MUCINEX600 MG PO (08:05)
[2019-04-20] MEDS ORDERED: MIRALAX17 GM PO (08:05)
[2019-04-20] MEDS ORDERED: BROVANA15 MCG/2 M INH (08:05)
[2019-04-20] MEDS ORDERED: SPIRONOLACTONE25 M1 PO (08:05)
[2019-04-20] MEDS ORDERED: DEMADEX20 MG PO (08:05)
[2019-04-20] MEDS ORDERED: HUMULIN N100 UNIT/1 SUBQ ×2 (08:05)
[2019-04-21] MEDS ORDERED: DEMADEX20 MG PO (08:29)
--- NOTE | 2019-04-22 20:03 | P ---
[facility] [place] [address] PROCEDURE REPORT Name: MALOU SPENCER Room #: 451-P [facility] IN M.R.#: [id number] Admission: 03/26/19 Attend Phys: Ilia Villanueva Discharge: 04/07/19 Date of : 28 Report #: [id number] THIS REPORT FOR: //name// CC: ARMANDO physician/PCP Ilia Villanueva DATE OF SERVICE: 03/30/2019 PREPROCEDURE DIAGNOSIS: Surgical wound to the right foot, status post amputation, right great toe. POSTPROCEDURE DIAGNOSIS: Surgical wound to the right foot, status post amputation, right great toe. PROCEDURE PERFORMED: Sharp full thickness surgical debridement of the existing surgical wound of the right foot. DESCRIPTION OF PROCEDURE: After patient has given verbal consent for debridement, the right foot was prepped and draped in usual sterile fashion. No anesthesia was required due to significant peripheral neuropathy. PREPROCEDURE MEASUREMENTS: 4.3 cm x 2.5 cm x 1 cm with a tunnel at 1.9 cm. POSTPROCEDURE MEASUREMENTS: 4.3 cm x 2.5 cm x 1.7 cm with a tunnel of 1.9 cm. A curette was utilized to perform sharp full thickness debridement including skin and subcutaneous tissue, removal of nonviable tissue as well as some viable tissue was obtained down to a healthy clean bleeding base. The patient tolerated the procedure well with no pain. ESTIMATED BLOOD LOSS: 2 mL. COMPLICATIONS: No complications. 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 The patient has developed increasing drainage breakdown and necrotic tissue; therefore, it is felt that a surgical excisional debridement is required. A curette was utilized to perform a surgical excisional debridement, full-thickness including skin and subcutaneous tissue removal of nonviable tissue as well as some viable tissue down to a healthy, cleaning base. Preprocedure measurements 4.3 x 2.5 cm x 1 cm with a [facility] [address] [place] [address] PROCEDURE REPORT Name: MALOU SPENCER Room #: 451-P [facility] IN M.R.#: [id number] Admission: 03/26/19 Attend Phys: Ilia Villanueva Discharge: 04/07/19 Date of : 28 Report #: [id number] tunnel at 1.9 cm. Post-procedure measurements 4.3 x 2.5 x 1.7 cm with a tunnel of 1.9 cm. <ELECTRONICALLY SIGNED> By: Thierry Bloom MD 04/22/192002 [id number] [id number] Thierry Bloom MD /nt
== END 2019-04-07 20:14 | DRG 853 ==
LOC: 4W 17:29
PROVIDERS: Internal Medicine; Nurse Practitioner Family; ADMIT Hospitalist
PROC: 0JBQ0ZZ Excision of Right Foot Subcutaneous Tissue and Fascia, Open Approach (ICD-10-PCS; principal; 2019-03-30)
PROC: 5A09357 Assistance with Respiratory Ventilation, Less than 24 Consecutive Hours, Continuous Positive Airway Pressure (ICD-10-PCS; 2019-03-31)
PROC: 5A09357 Assistance with Respiratory Ventilation, Less than 24 Consecutive Hours, Continuous Positive Airway Pressure (ICD-10-PCS; 2019-04-01)
PROC: 5A09357 Assistance with Respiratory Ventilation, Less than 24 Consecutive Hours, Continuous Positive Airway Pressure (ICD-10-PCS; 2019-04-02)
PROC: 5A09357 Assistance with Respiratory Ventilation, Less than 24 Consecutive Hours, Continuous Positive Airway Pressure (ICD-10-PCS; 2019-04-03)
PROC: 5A09357 Assistance with Respiratory Ventilation, Less than 24 Consecutive Hours, Continuous Positive Airway Pressure (ICD-10-PCS; 2019-04-05)
PROC: 5A09357 Assistance with Respiratory Ventilation, Less than 24 Consecutive Hours, Continuous Positive Airway Pressure (ICD-10-PCS; 2019-04-06)
DX: A41.9 Sepsis, unspecified organism (principal); J96.20 Acute and chronic respiratory failure, unspecified whether with hypoxia or hypercapnia; I50.33 Acute on chronic diastolic (congestive) heart failure; J18.9 Pneumonia, unspecified organism; L03.116 Cellulitis of left lower limb; I13.0 Hypertensive heart and chronic kidney disease with heart failure and stage 1 through stage 4 chronic kidney disease, or unspecified chronic kidney disease; N17.9 Acute kidney failure, unspecified; M86.9 Osteomyelitis, unspecified; I42.9 Cardiomyopathy, unspecified; D68.69 Other thrombophilia; I48.21 Permanent atrial fibrillation; I47.2 Ventricular tachycardia; E46 Unspecified protein-calorie malnutrition; J44.1 Chronic obstructive pulmonary disease with (acute) exacerbation; J44.0 Chronic obstructive pulmonary disease with (acute) lower respiratory infection; L03.115 Cellulitis of right lower limb; N18.3 Chronic kidney disease, stage 3 (moderate); E11.22 Type 2 diabetes mellitus with diabetic chronic kidney disease; I25.10 Atherosclerotic heart disease of native coronary artery without angina pectoris; I48.91 Unspecified atrial fibrillation; E11.51 Type 2 diabetes mellitus with diabetic peripheral angiopathy without gangrene; G47.33 Obstructive sleep apnea (adult) (pediatric); E11.42 Type 2 diabetes mellitus with diabetic polyneuropathy; E03.9 Hypothyroidism, unspecified; I27.20 Pulmonary hypertension, unspecified; E11.65 Type 2 diabetes mellitus with hyperglycemia; E78.5 Hyperlipidemia, unspecified; E11.69 Type 2 diabetes mellitus with other specified complication; I35.0 Nonrheumatic aortic (valve) stenosis; N40.1 Benign prostatic hyperplasia with lower urinary tract symptoms; R39.15 Urgency of urination; S90.811A Abrasion, right foot, initial encounter; X58.XXXA Exposure to other specified factors, initial encounter; Z60.2 Problems related to living alone; D64.9 Anemia, unspecified; D50.9 Iron deficiency anemia, unspecified; I87.8 Other specified disorders of veins; E11.649 Type 2 diabetes mellitus with hypoglycemia without coma; Z89.411 Acquired absence of right great toe; Z95.820 Peripheral vascular angioplasty status with implants and grafts; Z88.8 Allergy status to other drugs, medicaments and biological substances; Z79.899 Other long term (current) drug therapy; Z22.321 Carrier or suspected carrier of Methicillin susceptible Staphylococcus aureus; Z87.891 Personal history of nicotine dependence; Z99.81 Dependence on supplemental oxygen; Y83.5 Amputation of limb(s) as the cause of abnormal reaction of the patient, or of later complication, without mention of misadventure at the time of the procedure; Y92.89 Other specified places as the place of occurrence of the external cause
CPT/HCPCS: 10040; 10047

== ENCOUNTER → 2019-03-26 | Outpatient (CLI) | payer OTHER ==
[~2019-03-26] MED LIST changes: +ARGINAID POWDE1 EACH PO; +BACTRIM DS TAB1 EACH PO; +CENTRUM SILVER1 EAC2 PO; +CIPRO500 MG PO; +HUMULIN N100 UNIT/1 SUBQ; +IPRATROPIU0.2 MG/1 M INH; +LOPRESSOR50 MG PO; +LOSARTAN POTASS50 MG PO; +MAG6464 MG PO; +MUCINEX600 MG PO; +PACERONE 200 M200 M1 PO; +PROTEIN POWDER480 GM PO; +SENNA-TIME S T1 EACH PO; +TYLENOL325 MG PO; +XARELTO15 MG PO
== END ==
LOC: HYPER 12:19
DX: T87.81 Dehiscence of amputation stump (principal); E11.621 Type 2 diabetes mellitus with foot ulcer; L97.521 Non-pressure chronic ulcer of other part of left foot limited to breakdown of skin; L97.512 Non-pressure chronic ulcer of other part of right foot with fat layer exposed; E11.622 Type 2 diabetes mellitus with other skin ulcer; L97.821 Non-pressure chronic ulcer of other part of left lower leg limited to breakdown of skin; L84 Corns and callosities; R29.6 Repeated falls; R60.1 Generalized edema; Z89.411 Acquired absence of right great toe; Z79.4 Long term (current) use of insulin; Y83.5 Amputation of limb(s) as the cause of abnormal reaction of the patient, or of later complication, without mention of misadventure at the time of the procedure